=== PATIENT | male | born 1960 | race Caucasian/White ===

== ENCOUNTER 2017-04-03 07:10 | Inpatient (IN) | payer MEDICAID ==
[2017-04-03] MEDS ORDERED: Sodium Chloride 0.9% 1,000 ML IV SCH (07:30)
[2017-04-03] MEDS ORDERED: Propofol 200 MG/20 ML SDV ONE ×2 (07:57→08:39)
[2017-04-03] MEDS ORDERED: fentaNYL 100 MCG/2 ML SDV ONE (07:58)
[2017-04-03] MEDS ORDERED: Midazolam 1 MG/ML 2 ML SDV ONE (07:58)
[2017-04-03] MEDS: Dextrose 5%-Lactated Ringers 1,000 ML IV SCH ×2 (10:59→21:04)
--- NOTE | 2017-04-03 13:29 | PROC ---
DATE OF PROCEDURE: 04/03/2017 INDICATION: Rakesh is a 56-year-old male who comes in for a screening colonoscopy. He has had bleeding from the rectum recently and is concerned. The risks and benefits were explained for a colonoscopy. DESCRIPTION OF PROCEDURE: The Olympus 180 AL scope was used. With a gloved finger, the rectum was examined, and the prostate was unremarkable. The tube was placed into the rectum and immediately noted significant mucosal erythema, but no polyps were identified. We then advanced the scope and did get finally to the cecum. At the cecum, noted 2 small polyps. These were biopsied. Upon retraction of the tube, noted a developing napkin-ring lesion. Pictures were taken of this area. We then put in the biopsy wire and lost the area that we were looking for. We went back and forth at least a dozen times. Unable to locate the napkin-like lesion again. Finally, the search was terminated, and retracted the tube slowly. There were no other lesions or ulceration noted throughout the entire colon. We came back into the rectum area, noted significant erythema once more with mucosal redness. Pictures were taken of this. No polyps were noted in the rectum. The tube was removed. The patient tolerated the procedure well. PREOPERATIVE DIAGNOSIS: Gastrointestinal blood loss. POSTOPERATIVE DIAGNOSIS: Two small polyps at the cecum; one developing napkin- like lesion noted. Unable to locate the lesion again for biopsy, but pictures were taken. Rectal mucosal erythema I feel that I a colon resection is going to be needed. The patient tolerated the procedure well. I spoke with Dr. Gilmar Johnson who will speak to Rakesh for possible surgical resection of the colon. Mao Melendez MD /[id number]
[2017-04-04] MEDS: Dextrose 5%-Lactated Ringers 1,000 ML IV SCH ×2 (05:45→15:44)
--- NOTE | 2017-04-04 09:11 | PCM.HP ---
H&P History of Present Illness - General Date of Service: 04/04/17 Source of Information: Patient History Limitations: Reports: No Limitations - History of Present Illness Initial Comments - Free Text/Narative: Rakesh states he had a one month history of bright red rectal bleeding. He had no other symptoms. Lower Back Pain Score (Numeric/FACES): 1 - Related Data Allergies/Adverse Reactions: Allergies Allergy/AdvReac Type Severity Reaction Status Date / Time codeine Allergy Itching Verified 04/03/17 07:23 Home Medications: Home Meds Albuterol [Ventolin HFA] 2 puff PO Q4H PRN 04/03/17 [History] Past Medical History HEENT History: Reports: Allergic Rhinitis, Impaired Vision Cardiovascular History: Reports: None Respiratory History: Reports: Bronchitis, Recurrent, COPD Gastrointestinal History: Reports: Colon Polyp, Gastritis, GERD Genitourinary History: Reports: None Musculoskeletal History: Reports: Back Pain, Chronic, Fracture, Neck Pain, Chronic Neurological History: Reports: Concussion, Migraines Psychiatric History: Reports: None Endocrine/Metabolic History: Reports: None Hematologic History: Reports: None Immunologic History: Reports: None Oncologic (Cancer) History: Reports: None Dermatologic History: Reports: None - Infectious Disease History Infectious Disease History: Reports: Chicken Pox - Past Surgical History Head Surgeries/Procedures: Reports: None HEENT Surgical History: Reports: None Cardiovascular Surgical History: Reports: None Respiratory Surgical History: Reports: None GI Surgical History: Reports: Colonoscopy, EGD, Hernia, Inguinal Male Surgical History: Reports: None Endocrine Surgical History: Reports: None Neurological Surgical History: Reports: None Musculoskeletal Surgical History: Reports: Ganglion Cyst Oncologic Surgical History: Reports: None Dermatological Surgical History: Reports: None Social & Family History - Family History Family Medical History: Noncontributory - Tobacco Use Smoking Status *Q: Former Smoker Years of Tobacco use: 20 Packs/Tins Daily: 1 Used Tobacco, but Quit: Yes Month Tobacco Last Used: 05/2016 Second Hand Smoke Exposure: Yes - Caffeine Use Caffeine Use: Reports: Coffee, Soda - Alcohol Use Days Per Week of Alcohol Use: 3 Number of Drinks Per Day: 5 Total Drinks Per Week: 15 Date of Last Drink: 03/31/17 - Recreational Drug Use Recreational Drug Use: Yes Drug Use in Last 12 Months: Yes Recreational Drug Type: Reports: Marijuana/Hashish Recreational Drug Use Frequency: Daily - Living Situation & Occupation Living situation: Reports: 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[place]) H&P Review of Systems - Review of Systems: Review Of Systems: See Below General: Reports: No Symptoms HEENT: Reports: No Symptoms Pulmonary: Reports: No Symptoms Cardiovascular: Reports: No Symptoms Gastrointestinal: Reports: No Symptoms Genitourinary: Reports: No Symptoms Musculoskeletal: Reports: No Symptoms Skin: Reports: No Symptoms Psychiatric: Reports: No Symptoms Neurological: Reports: No Symptoms Hematologic/Lymphatic: Reports: No Symptoms Immunologic: Reports: No Symptoms Exam - Exam Exam: See Below - Vital Signs Vital Signs: Last Vital Signs Temp 98.7 F 04/04/17 07:15 Pulse 68 04/04/17 07:15 Resp 16 04/04/17 07:15 BP 136/99 H 04/04/17 07:15 Pulse Ox 100 04/04/17 07:15 Weight: 182 lb 15.986 oz - Exam Quality Assessment: DVT Prophylaxis General: Alert, Oriented, Cooperative HEENT: PERRLA Neck: Supple, Trachea Midline Lungs: Clear to Auscultation, Normal Respiratory Effort Cardiovascular: Regular Rate, Regular Rhythm GI/Abdominal Exam: Soft, Non-Tender (Male) Exam: Deferred Rectal (Males) Exam: Deferred Back Exam: Normal Inspection, Full Range of Motion Extremities: Normal Inspection, Normal Range of Motion Skin: Warm, Dry, Intact Neurological: Cranial Nerves Intact, Reflexes Equal Bilateral Neuro Extensive - Mental Status: Alert, Oriented x3, Normal Mood/Affect Neuro Extensive - Motor, Sensory, Reflexes: CN II-XII Intact, Normal Reflexes Psychiatric: Alert, Normal Affect, Normal Mood - Patient Data Lab Results Last 24 hrs: Laboratory Results - last 24 hr 04/03/17 04/03/17 04/03/17 Range/Units 10:59 10:59 10:59 WBC 5.2 (4.5-11.0) K/uL RBC 4.80 (4.30-5.90) M/uL Hgb 15.1 H (12.0-15.0) g/dL Hct 44.1 (40.0-54.0) % MCV 92 (80-98) fL MCH 32 H (27-31) pg MCHC 34 (32-36) % Plt Count 271 (150-400) K/uL Sodium 140 (140-148) mmol/L Potassium 3.6 (3.6-5.2) mmol/L Chloride 107 (100-108) mmol/L Carbon Dioxide 23 (21-32) mmol/L Anion Gap 10.0 (5.0-14.0) mmol/L BUN 6 L (7-18) mg/dL Creatinine 1.0 (0.8-1.3) mg/dL Est Cr Clr Drug Dosing 87.19 mL/min Estimated GFR (MDRD) > 60 (>60) Glucose 141 H (74-106) mg/dL Calcium 8.3 L (8.5-10.1) mg/dL Total Bilirubin 1.0 (0.2-1.0) mg/dL AST 21 (15-37) U/L ALT 26 (12-78) U/L Alkaline Phosphatase 86 (46-116) U/L Total Protein 7.0 (6.4-8.2) g/dL Albumin 3.4 (3.4-5.0) g/dL Globulin 3.6 H (2.3-3.5) g/dL Albumin/Globulin Ratio 0.9 L (1.2-2.2) Blood Type O NEGATIVE Gel Antibody Screen Negative Crossmatch See Detail Result Diagrams: 04/03/17 10:59 04/03/17 10:59 *Q Meaningful Use (ADM) - VTE *Q VTE Criteria *Q: - Stroke *Q Stroke Criteria *Q: - AMI *Q AMI Criteria *Q: Problem List Initiated/Reviewed/Updated: Yes Orders Last 24hrs: Active Orders 24 hr Category Date Time Status Communication Order [RC] ASDIRECTED Care 04/03/17 10:43 Active Intake and Output [RC] ASDIRECTED Care 04/03/17 10:41 Active Up ad Marina [RC] ASDIRECTED Care 04/03/17 10:38 Active Verify Patient Consent Obtain [RC] ASDIRECTED Care 04/04/17 11:30 Active Vital Signs [RC] Q4H Care 04/03/17 10:38 Active Clear Liquid Diet [DIET] Diet 04/03/17 Lunch Active NPO After Midnight [Nothing per Oral After Midnight Diet 04/04/17 Dinner Active Diet] [DIET] CEA [REF] Stat Lab 04/03/17 10:59 Received PATIENT RETYPE [BBK] Stat Lab 04/03/17 10:59 Results RED BLOOD CELLS LP [BBK] Stat Lab 04/03/17 10:59 Results TYPE AND SCREEN [BBK] Stat Lab 04/03/17 10:59 Results Acetaminophen [Tylenol Extra Strength] Med 04/04/17 10:30 Once 1,000 mg PO ONETIME ONE Albuterol/Ipratropium [DuoNeb 3.0-0.5 MG/3 ML] Med 04/04/17 12:30 Once 3 ml INH ONCALL ONE Alvimopan [Entereg] Med 04/04/17 10:30 Once 12 mg PO ONETIME ONE Celecoxib [CeleBREX] Med 04/04/17 10:30 Once 200 mg PO ONETIME ONE Dextrose 5%-Lactated Ringers 1,000 ml Med 04/03/17 11:00 Active IV ASDIRECTED cefOXitin [Mefoxin] 2 gm Med 04/04/17 12:30 Active Sodium Chloride 0.9% [Normal Saline] 50 ml IV ONCALL SCD [Sequential Compression Device] [OM.PC] Routine Oth 04/03/17 16:10 Ordered Medication Orders Acetaminophen (Tylenol Extra Strength) 1,000 mg PO ONETIME ONE Stop: 04/04/17 10:31 Albuterol/Ipratropium (Duoneb 3.0-0.5 Mg/3 Ml) 3 ml INH ONCALL ONE Stop: 04/04/17 12:31 Alvimopan (Entereg) 12 mg PO ONETIME ONE Stop: 04/04/17 10:31 Celecoxib (Celebrex) 200 mg PO ONETIME ONE Stop: 04/04/17 10:31 Dextrose/Lactated Ringer's (Dextrose 5%-Lactated Ringers) 1,000 mls @ 100 mls/ hr IV ASDIRECTED DALE Last Admin: 04/04/17 05:45 Dose: 100 mls/hr Infusion: 04/04/17 05:45 Dose: 100 mls/hr Admin: 04/03/17 21:04 Dose: 100 mls/hr Infusion: 04/03/17 20:59 Dose: 100 mls/hr Admin: 04/03/17 10:59 Dose: 100 mls/hr Cefoxitin Sodium 2 gm/ Sodium (Chloride) 50 mls @ 100 mls/hr IV ONCALL ONE Stop: 04/04/17 12:59 Assessment/Plan Comment:: Rectal Bleeding SP Colonoscopy which reveals 2 polyps Family history: colon cancer - Mother at 65 yo Plan: Scheduled for Right Colectomy today case to follow See copy of orders in EMR Remain NPO Josephine Turk
[2017-04-04] MEDS ORDERED: Acetaminophen 500 MG Tab PO ONE (10:30)
[2017-04-04] MEDS ORDERED: Celecoxib 200 MG Cap PO ONE (10:30)
[2017-04-04] MEDS ORDERED: Succinylcholine 200 MG/10 ML MDV ONE (11:28)
[2017-04-04] MEDS ORDERED: Dexamethasone 4 MG/ML SDV ONE (11:28)
[2017-04-04] MEDS ORDERED: Propofol 200 MG/20 ML SDV ONE (11:28)
[2017-04-04] MEDS ORDERED: Ondansetron 4 MG/2 ML SDV ONE (11:28)
[2017-04-04] MEDS ORDERED: Neostigmine Methylsulfate 1 MG/ML 5 ML Syringe ONE (11:28)
[2017-04-04] MEDS ORDERED: Rocuronium 50 MG/5 ML Vial ONE (11:28)
[2017-04-04] MEDS ORDERED: Glycopyrrolate 0.2 MG/ML 5 ML MDV ONE (11:28)
[2017-04-04] MEDS ORDERED: Naloxone 0.4 MG/ML SDV ONE ×3 (11:39→15:47)
[2017-04-04] MEDS ORDERED: Naloxone 0.4 MG/ML SDV IVPUSH PRN (12:15)
[2017-04-04] MEDS ORDERED: Albuterol/Ipratropium 3.0-0.5 MG/3 ML Neb Soln INH ONE (12:30)
[2017-04-04] MEDS ORDERED: Ketorolac 60 MG/2 ML SDV ONE (12:51)
[2017-04-04] MEDS ORDERED: fentaNYL 100 MCG/2 ML SDV ONE ×2 (12:53→13:43)
[2017-04-04] MEDS ORDERED: Sodium Chloride 0.9% 20 ML ONE (13:02)
[2017-04-04] MEDS ORDERED: Bupivacaine 0.5% 30 ML SDV ONE (13:02)
[2017-04-04] MEDS ORDERED: Lactated Ringers 1,000 ML ONE (13:20)
[2017-04-04] MEDS ORDERED: Meropenem 500 MG SDV ONE (13:34)
[2017-04-04] MEDS: cefOXitin 2 GM in Sodium Chloride 0.9% 50 ML IV ONE ×2 (13:35→13:38)
[2017-04-04] MEDS ORDERED: Scopolamine 1.5 MG Transdermal Patch ONE (14:11)
[2017-04-04] MEDS ORDERED: Meperidine PF 100 MG/ML Syringe IM ONE (14:46)
[2017-04-04] MEDS ORDERED: hydrOXYzine HCl 100 MG/2 ML SDV IM ONE (14:47)
[2017-04-04] MEDS ORDERED: hydrOXYzine HCl 100 MG/2 ML SDV ONE (14:48)
[2017-04-04] MEDS ORDERED: Meperidine PF 100 MG/ML Syringe ONE (14:48)
[2017-04-04] MEDS: fentaNYL 2,500 MCG in Sodium Chloride 0.9% 200 ML EPIDUR SCH (15:43)
[2017-04-04] MEDS: Naloxone 0.4 MG/ML SDV IV PRN (15:55)
[2017-04-04] MEDS ORDERED: Naloxone 0.4 MG in Dextrose 5%-Lactated Ringers 1,000 ML IV SCH (16:00)
[2017-04-04] MEDS ORDERED: Meperidine PF 75 MG/ML Syringe IM PRN (16:07)
[2017-04-04] MEDS ORDERED: Albuterol/Ipratropium 3.0-0.5 MG/3 ML Neb Soln INH PRN (16:09)
[2017-04-04] MEDS ORDERED: Dextrose 5%-Lactated Ringers 1,000 ML IV SCH (16:15)
[2017-04-04] MEDS: cefOXitin 2 GM in Sodium Chloride 0.9% 50 ML IV SCH (17:56)
[2017-04-04] MEDS: Acetaminophen 1,000 MG in Premix Bag 1 BAG IV SCH (18:28)
[2017-04-04] MEDS: VERIFY SCOP PATCH TOP SCH (18:54)
[2017-04-04] MEDS: Naloxone 0.4 MG in Dextrose 5%-Lactated Ringers 1,000 ML IV SCH (21:39)
[2017-04-04] MEDS: Albuterol/Ipratropium 3.0-0.5 MG/3 ML Neb Soln INH SCH (21:39)
[2017-04-04] MEDS: Tamsulosin 0.4 MG Cap.ER PO SCH (21:44)
[2017-04-05] MEDS: Acetaminophen 1,000 MG in Premix Bag 1 BAG IV SCH ×3 (00:27→11:58)
[2017-04-05] MEDS: cefOXitin 2 GM in Sodium Chloride 0.9% 50 ML IV SCH ×4 (00:35→17:29)
[2017-04-05] MEDS: Naloxone 0.4 MG in Dextrose 5%-Lactated Ringers 1,000 ML IV SCH (04:28)
[2017-04-05] MEDS: diphenhydrAMINE 50 MG/ML SDV IVPUSH PRN ×2 (04:28→15:40)
[2017-04-05] MEDS: Naloxone 0.4 MG/ML SDV IV PRN (04:30)
[2017-04-05] MEDS: Albuterol/Ipratropium 3.0-0.5 MG/3 ML Neb Soln INH SCH ×4 (07:51→21:28)
[2017-04-05] MEDS: fentaNYL 2,500 MCG in Sodium Chloride 0.9% 200 ML EPIDUR SCH (08:34)
[2017-04-05] MEDS: VERIFY SCOP PATCH TOP SCH (08:35)
[2017-04-05] MEDS ORDERED: Naloxone 0.4 MG in Dextrose 5%-Lactated Ringers 1,000 ML IV SCH (10:30)
[2017-04-05] MEDS: Sennosides 8.6 MG Tab PO SCH (11:57)
[2017-04-05] MEDS: Ibuprofen 600 MG Tab PO SCH ×3 (11:58→21:29)
[2017-04-05] MEDS: Bisacodyl 5 MG Tab PO SCH ×2 (11:58→21:28)
[2017-04-05] MEDS: traMADol 50 MG Tab PO SCH ×3 (12:07→21:32)
[2017-04-05] MEDS: Acetaminophen 325 MG Tab PO SCH (17:29)
[2017-04-05] MEDS: Dextrose 5%-Lactated Ringers 1,000 ML IV SCH (17:41)
[2017-04-05] MEDS: Tamsulosin 0.4 MG Cap.ER PO SCH (21:29)
[2017-04-06] MEDS: Ondansetron 4 MG/2 ML SDV IV PRN (04:39)
[2017-04-06] MEDS: fentaNYL 2,500 MCG in Sodium Chloride 0.9% 200 ML EPIDUR SCH (04:57)
[2017-04-06] MEDS ORDERED: Lidocaine 1% with EPINEPHrine 1:100,000 50 ML MDV ONE (05:25)
[2017-04-06] MEDS ORDERED: Bupivacaine 0.5% 50 ML MDV ONE (05:25)
[2017-04-06] MEDS ORDERED: Meropenem 500 MG SDV ONE (05:25)
[2017-04-06] MEDS: Ibuprofen 600 MG Tab PO SCH ×4 (05:49→21:24)
[2017-04-06] MEDS: Acetaminophen 325 MG Tab PO SCH ×4 (05:53→19:20)
[2017-04-06] MEDS: traMADol 50 MG Tab PO SCH ×4 (05:53→21:24)
[2017-04-06] MEDS: cefOXitin 2 GM in Sodium Chloride 0.9% 50 ML IV SCH ×3 (06:00)
[2017-04-06] MEDS ORDERED: Propofol 200 MG/20 ML SDV ONE (06:06)
[2017-04-06] MEDS ORDERED: fentaNYL 100 MCG/2 ML SDV ONE (06:07)
[2017-04-06] MEDS ORDERED: Clindamycin Phosphate 900 MG in Sodium Chloride 0.9% 100 ML IV ONE (07:15)
[2017-04-06] MEDS: Albuterol/Ipratropium 3.0-0.5 MG/3 ML Neb Soln INH SCH ×4 (07:45→21:25)
[2017-04-06] MEDS ORDERED: Naloxone 0.4 MG/ML SDV IV PRN (07:48)
[2017-04-06] MEDS: HYDROmorphone/Normal Saline 15 MG/30 ML PCA IV PRN (08:00)
[2017-04-06] MEDS: Piperacillin/Tazobactam/Dext 3.375 GM in Premix Bag 1 BAG IV SCH ×3 (08:20→20:29)
[2017-04-06] MEDS: Metoclopramide 10 MG/2 ML SDV IVPUSH SCH ×3 (08:21→20:30)
[2017-04-06] MEDS: VERIFY SCOP PATCH TOP SCH (10:22)
[2017-04-06] MEDS: Sennosides 8.6 MG Tab PO SCH (10:23)
[2017-04-06] MEDS: Bisacodyl 5 MG Tab PO SCH ×2 (11:37→20:30)
[2017-04-06] MEDS ORDERED: Furosemide 20 MG/2 ML VIAL IVPUSH ONE (14:00)
[2017-04-06] MEDS: Clindamycin Phosphate 900 MG in Sodium Chloride 0.9% 100 ML IV SCH ×2 (14:47→21:25)
[2017-04-06] MEDS: Dextrose 5%-Lactated Ringers 1,000 ML IV SCH ×2 (16:25)
--- NOTE | 2017-04-06 17:03 | PN ---
DATE OF SERVICE: 04/05/2017 The patient has been clinically stable and afebrile with stable vital signs. Oral intake has been today. Otherwise, plan a delayed primary closure tomorrow morning. We will start the Senokot and Dulcolax regimen along with ibuprofen, tramadol, and Tylenol, and plan to proceed with a delayed primary closure of abdominal incision tomorrow. Gabriele Johnson MD /[id number]
--- NOTE | 2017-04-06 17:40 | OR ---
DATE OF PROCEDURE: 04/06/2017 PREOPERATIVE DIAGNOSIS: Open abdominal incision. POSTOPERATIVE DIAGNOSIS: Open abdominal incision. OPERATION PERFORMED: Delayed primary closure of open abdominal incision. ANESTHESIA: IV sedation. INDICATION FOR PROCEDURE: The patient is 48 hours status post right colectomy. At the time of the original procedure, he was thought to be high risk for wound infection if primary closure was undertaken. Given this, a delayed primary closure is planned for today. Potential risks including bleeding, infection, aspiration of gastric contents during the sedation were reviewed and the patient wishes to proceed. DETAILS OF PROCEDURE: The patient was taken to the operating room and placed in a sitting position with lateral position being adopted to minimize chance of aspiration of gastric contents. After IV sedation was administered, the wound was taken down and examined and found to be clean. The wound was then prepped and draped, anesthetized with 1% lidocaine mixed with Marcaine and irrigated with meropenem-containing saline solution. Through the lateral incision, a 10-Zambian round Deny-Fallon drain was placed and then the incision closed with some 3-0 and 4-0 Vicryl stitch deep and martinez for the skin and the drain was affixed with 3-0 Vicryl stitch and the patient was taken to the recovery room in satisfactory condition. The patient did have some emesis during the procedure and had some degree of aspiration due to coughing somewhat in the recovery room, but he was maintaining adequate O2 sats and otherwise looked comfortable. Gabriele Johnson MD /[id number]
[2017-04-06] MEDS: Tamsulosin 0.4 MG Cap.ER PO SCH (20:30)
[2017-04-07] MEDS: Acetaminophen 325 MG Tab PO SCH ×2 (01:09→05:32)
[2017-04-07] MEDS: Piperacillin/Tazobactam/Dext 3.375 GM in Premix Bag 1 BAG IV SCH ×4 (01:09→20:34)
[2017-04-07] MEDS: Metoclopramide 10 MG/2 ML SDV IVPUSH SCH ×4 (01:10→20:33)
[2017-04-07] MEDS: traMADol 50 MG Tab PO SCH (05:32)
[2017-04-07] MEDS: Clindamycin Phosphate 900 MG in Sodium Chloride 0.9% 100 ML IV SCH ×3 (05:33→21:17)
[2017-04-07] MEDS: Ibuprofen 600 MG Tab PO SCH (05:33)
[2017-04-07] MEDS: Dextrose 5%-Lactated Ringers 1,000 ML IV SCH ×2 (05:34→15:31)
[2017-04-07] MEDS: Ondansetron 4 MG/2 ML SDV IV PRN (06:49)
[2017-04-07] MEDS: Albuterol/Ipratropium 3.0-0.5 MG/3 ML Neb Soln INH SCH ×4 (07:27→20:34)
[2017-04-07] MEDS: VERIFY SCOP PATCH TOP SCH (09:02)
[2017-04-07] MEDS: Scopolamine 1.5 MG Transdermal Patch TOP SCH (09:03)
[2017-04-07] MEDS: Sennosides 8.6 MG Tab PO SCH (09:07)
--- NOTE | 2017-04-07 09:25 | CR ---
Post surgical changes with drains. Drain right lower quadrant. Dilated small bowel loops and gaseous distention of the large bowel. Findings may indicate ileus.
--- NOTE | 2017-04-07 09:29 | CR ---
Heart size within normal limits. Free air under the right hemidiaphragm. Correlate with postsurgical change. Pulmonary vasculature within normal limits. Streaky density right lung base may indicate atel ectasis.
--- NOTE | 2017-04-07 11:22 | PN ---
DATE OF SERVICE: 04/06/2017 The patient has been afebrile with stable vital signs. He did vomit this morning and also had vomited some during the delayed primary closure. Clinically, he appears to be stable. He is coughing somewhat, but has adequate O2 sats. We will check a chest x-ray tomorrow and then empirically get him on Zosyn and clindamycin at this point. Otherwise because of the emesis, I suspect we are not going to get much oral absorption, and if he does vomit again, we will place an NG tube and hold the oral meds altogether. With the epidural catheter coming out today, we will start a [employer] and make him n.p.o., except ice chips and sips of water. Gabriele Johnson MD /[id number]
[2017-04-07] MEDS: HYDROmorphone/Normal Saline 15 MG/30 ML PCA IV PRN (11:30)
--- NOTE | 2017-04-07 13:29 | OR ---
DATE OF PROCEDURE: 04/04/2017 PREOPERATIVE DIAGNOSIS: Sessile polyp involving ascending colon. POSTOPERATIVE DIAGNOSES: 1. Sessile polyp involving ascending colon. 2. 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 OPERATIVE PROCEDURES: Exploratory laparotomy with: 1. Right colectomy (32426). 2. Mobilization of omentum into pelvis to limit recurrent adhesion formation (16712). ANESTHESIA: General. FILM PROCESSING SUPERVISOR: Josephine Horta PA-C. INDICATIONS FOR PROCEDURE: A 56-year-old male presenting for a screening colonoscopy yesterday. He was noted to have a sessile polyp in the cecum or ascending colon, which was felt not amenable to endoscopic removal. Given this, he is admitted for planned right colectomy at this time. Potential risks of procedure including bleeding, infection, leaks from various GI tract closures, problems with bowel obstruction over time, as well as possibility of cardiopulmonary, septic, or hemorrhagic complications leading to were discussed, and the patient wishes to proceed. DETAILS OF PROCEDURE: The patient was taken to the operating room and placed in a supine position after general endotracheal anesthesia was induced. A Banerjee catheter was then inserted. The patient also had epidural catheter placed prior to induction to initiate the fast track anesthetic protocol. After the abdomen was prepped and draped, a right subcostal- type incision was made roughly a handsbreadth below the costal margin. It was carried down through the skin and subcutaneous tissue and full thickness of the abdominal wall. Upon entering peritoneal cavity, general exploration was undertaken. No specific abnormalities were noted. Polyp seen on the endoscopy was clearly too small to be palpable. Examination showed there to be quite a bit in the way of congenital adhesions between the distal small bowel and the pelvic inlet area. These were dissected free to allow subsequent mobilization of the small bowel for the colectomy. At that point, the peritoneal reflection of the distal small bowel, cecum, and ascending colon were divided. Those structures were mobilized medially with care taken to avoid injury to the underlying right ureter and duodenum. The attachments to the area of the hepatic flexure of colon were sequentially divided with a combination of electrocautery and blunt dissection. Some of the omentum was then divided away from the hepatic flexure of the colon along to the more or less midportion of the transverse colon. The latter was then divided at a point just to the right of the middle colic vessels, and the distal small bowel was then divided a few centimeters proximal to the ileocecal valve at a point where nice mobility of the small bowel to the divided transverse colon was evident. The small bowel was divided with the TRACY stapler. The underlying mesentery was then divided with a combination of vascular and mesenteric loads and the specimen delivered from the field. Off the field, the specimen was opened, and with the endoscopic picture in view, the polyp identified on yesterday's colonoscopy was confirmed to be present, and this was marked with a suture to highlight it for the pathologic exam. At this point, the ileocolic anastomosis was accomplished with 2 internal firings of the TRACY luna loads, followed by a transverse closure of the common opening with 2 firings of the purple load. The angles were anastomosed, and the mesenteric defect was approximated with some 3-0 Vicryl stitch and reinforced with some fibrin sealant. The abdomen was then irrigated with a meropenem-containing saline solution. One Deny-Fallon drain was then placed through a stab wound in the right lateral abdomen and taken across the area of the anastomosis and from there into the pelvis. To limit recurrent adhesion formation in the area where the small bowel adhesions had been taken down, the omentum was mobilized down into that area, as well as underneath the incision, and at that point, the posterior peritoneum and musculature were approximated with a #2 Vicryl stitch, as was the anterior rectus sheath and musculature. The skin and subcutaneous tissues were felt to be high risk for a wound infection, if primary closure was undertaken. Given this, the wound was packed open for a planned delayed primary closure in 48 hours. There were no other complications. The patient was taken to the recovery room in satisfactory condition. Physician medical assistant instructor, Josephine Horta, played an essential role in assisting in this case, helping to position the patient, retracting structures as needed, as well as suturing and cutting sutures when indicated. Her presence improved patient safety and decreased operative time. Gabriele Johnson MD /[id number]
[2017-04-07] MEDS ORDERED: Bisacodyl 10 MG Supp RECTAL ONE (18:00)
[2017-04-08] MEDS: Ondansetron 4 MG/2 ML SDV IV PRN ×2 (00:33→05:06)
[2017-04-08] MEDS ORDERED: Phenol/Sodium Phenolate Mouthwash 180 ML Bottle MUCMEM PRN (00:42)
[2017-04-08] MEDS: Dextrose 5%-Lactated Ringers 1,000 ML IV SCH ×3 (01:12→23:10)
[2017-04-08] MEDS: Piperacillin/Tazobactam/Dext 3.375 GM in Premix Bag 1 BAG IV SCH ×4 (01:12→19:09)
[2017-04-08] MEDS: Metoclopramide 10 MG/2 ML SDV IVPUSH SCH ×4 (01:17→19:09)
[2017-04-08] MEDS: Clindamycin Phosphate 900 MG in Sodium Chloride 0.9% 100 ML IV SCH ×3 (05:01→21:27)
[2017-04-08] MEDS: Albuterol/Ipratropium 3.0-0.5 MG/3 ML Neb Soln INH SCH ×4 (07:04→21:27)
[2017-04-08] MEDS: VERIFY SCOP PATCH TOP SCH (08:30)
--- NOTE | 2017-04-08 10:32 | CR ---
NG tube with distal tip in the stomach. There remains numerous dilated loops of small bowel which can indicate an ileus or obstruction. Free air below the right hemidiaphragm.
[2017-04-08] MEDS: Sennosides 8.6 MG Tab PO SCH (10:44)
[2017-04-08] MEDS: HYDROmorphone/Normal Saline 15 MG/30 ML PCA IV PRN (14:21)
[2017-04-08] MEDS ORDERED: Furosemide 20 MG/2 ML VIAL IVPUSH ONE (21:04)
[2017-04-09] MEDS: Piperacillin/Tazobactam/Dext 3.375 GM in Premix Bag 1 BAG IV SCH ×4 (02:23→21:03)
[2017-04-09] MEDS: Metoclopramide 10 MG/2 ML SDV IVPUSH SCH ×4 (02:23→19:28)
[2017-04-09] MEDS: Clindamycin Phosphate 900 MG in Sodium Chloride 0.9% 100 ML IV SCH ×3 (05:16→21:48)
[2017-04-09] MEDS: Albuterol/Ipratropium 3.0-0.5 MG/3 ML Neb Soln INH SCH ×4 (07:09→20:57)
--- NOTE | 2017-04-09 08:33 | CR ---
NG tube with distal tip in the stomach. Surgical staple line. Free air under right hemidiaphragm. The re remains numerous loops of dilated small bowel indicating ileus or obstruction
[2017-04-09] MEDS: VERIFY SCOP PATCH TOP SCH (08:46)
[2017-04-09] MEDS: Sennosides 8.6 MG Tab PO SCH (08:47)
[2017-04-09] MEDS ORDERED: Furosemide 20 MG/2 ML VIAL IVPUSH ONE (09:00)
[2017-04-09] MEDS ORDERED: Magnesium Sulfate/Water 2 GM in Premix Bag 1 BAG IV SCH (10:00)
--- NOTE | 2017-04-09 10:21 | PN ---
DATE OF SERVICE: 04/09/2017 SUBJECTIVE: Rakesh did have a large bowel movement. Blood pressure has been slightly elevated at 151/97. He did have some Lasix, and his blood pressure did decrease. NG remains in, and he has had, over the past 24 hours, a total of 460 out. GEOVANNY drains have put out 43 mL, is what is recorded. Labs this morning, potassium 3.3 and magnesium was 1.9. He reports his pain is controlled if he remembers to push the button. He has been up ambulating. He states he is feeling better today. OBJECTIVE: GENERAL: Rakesh Portillo is a 56-year-old male. He looks like he is feeling a little bit better today. VITAL SIGNS: TPR is 98.9, 91, 16, and blood pressure is 164/107. HEENT: Negative. NECK: Supple. HEART: Regular rate and rhythm. LUNGS: Clear. ABDOMEN: Dressings dry and intact. Abdominal binder is on. EXTREMITIES: Without peripheral edema. ASSESSMENT: 1. Delayed primary closure of open abdominal incision on 04/06/2017. 2. Exploratory laparotomy with right colectomy and mobilization of omentum into pelvis to limit recurrent adhesive formation for sessile polyp involving ascending colon, extensive congenital adhesions between small bowel and lower abdomen and pelvis inlet. PLAN: 1. Magnesium 2 grams IV q.6 hours x72 hours. 2. KCl 60 mEq IV today. 3. Decrease IV to 80 mL/hour. 4. Check CBC, CMP, and phos in a.m. 5. Continue abdominal flat and upright films in a.m. 6. Dressing off, may shower. 7. Lasix 20 mg IV 1 time. 8. Good pulmonary toilet encouraged. 9. We will evaluate p.r.n. or in a.m. Josephine Horta PA-C /[id number]
[2017-04-09] MEDS: HYDROmorphone/Normal Saline 15 MG/30 ML PCA IV PRN (10:26)
[2017-04-09] MEDS: Potassium Chloride 20 MEQ, Lidocaine 1% 2 ML in Sodium Chloride 0.9% 100 ML IV SCH ×3 (10:59→15:13)
--- NOTE | 2017-04-09 11:36 | PN ---
DATE OF SERVICE: 04/08/2017 SUBJECTIVE: The NG was advanced and he had 600 out. He states he is feeling better now. His Banerjee catheter was removed, and he has not voided at the time of rounds. He states his pain is controlled. He states he is just not feeling well. REVIEW OF SYSTEMS: Remainder of review of systems negative for any pertinent positives and negatives. OBJECTIVE: GENERAL: Rakesh Portillo is a 56-year-old male. VITAL SIGNS: TPR is 100.1, 105, 18. Blood pressure 148/107, prior to that it was 152/96 and 143/101. HEENT: Negative. NECK: Supple. HEART: Regular rate and rhythm. LUNGS: Clear. ABDOMEN: Dressings dry and intact. Abdominal binder is on. EXTREMITIES: Without peripheral edema. ASSESSMENT: 1. Exploratory laparotomy with right colectomy and mobilization of the omentum into pelvis to limit recurrent adhesive formation for sessile polyp involving the ascending colon and extensive congenital adhesions between the small bowel and lower abdomen and pelvic inlet. Date of surgery 04/04/2017; surgeon, Gabriele Johnson MD. 2. Delayed primary closure for open incision on 04/06/2017, Gabriele Johnson MD, IV sedation. PLAN: 1. Abdominal flat and upright film in a.m. at 0400. 2. Decrease IV to 125 mL/hour. 3. Check CBC, CMP, and magnesium phosphate in a.m. 4. Good pulmonary toilet. 5. We will evaluate p.r.n. or in a.m. Josephine Horta PA-C /[id number]
[2017-04-09] MEDS: Dextrose 5%-Lactated Ringers 1,000 ML IV SCH (12:34)
[2017-04-09] MEDS ORDERED: Labetalol 20 MG/4 ML Syringe IVPUSH PRN (20:14)
[2017-04-09] MEDS: amLODIPine 5 MG Tab PO SCH (21:47)
[2017-04-10] MEDS: Piperacillin/Tazobactam/Dext 3.375 GM in Premix Bag 1 BAG IV SCH (01:55)
[2017-04-10] MEDS: Metoclopramide 10 MG/2 ML SDV IVPUSH SCH ×4 (01:55→19:07)
[2017-04-10] MEDS: HYDROmorphone/Normal Saline 15 MG/30 ML PCA IV PRN (03:26)
[2017-04-10] MEDS: Clindamycin Phosphate 900 MG in Sodium Chloride 0.9% 100 ML IV SCH (06:51)
[2017-04-10] MEDS: Albuterol/Ipratropium 3.0-0.5 MG/3 ML Neb Soln INH SCH ×4 (07:17→20:57)
[2017-04-10] MEDS: Sennosides 8.6 MG Tab PO SCH (08:03)
[2017-04-10] MEDS: Acetaminophen/HYDROcodone 325-5 MG Tab PO PRN ×4 (08:03→22:55)
[2017-04-10] MEDS: LORazepam 0.5 MG Tab PO PRN ×2 (08:04→20:56)
[2017-04-10] MEDS: Scopolamine 1.5 MG Transdermal Patch TOP SCH (08:05)
--- NOTE | 2017-04-10 09:57 | PN ---
DATE OF SERVICE: 04/10/2017 SUBJECTIVE: Rakesh has been afebrile. Temp max of 99.9. He has been up walking. He has been drinking some soda which he has tolerated it well. He reports he is quite anxious. Blood pressure has been elevated. He was given labetalol last night, started on Norvasc, amlodipine 5 mg. His NG was clamped. It was given at bedtime last night, so we will check his blood pressure today, get his anxiety under control and see how he is feeling. Pain is controlled he states as long as he pushes his button. He reports wanting that NG out which will be ordered to come out today. REVIEW OF SYSTEMS: Remainder of review of systems negative for any pertinent positives and negatives. OBJECTIVE: GENERAL: Rakesh Portillo is a 56-year-old male. He is alert and orientated, pleasant. VITAL SIGNS: TPR 98.7, 83, 16, blood pressure 153/99. HEENT: Negative. NECK: Supple. HEART: Regular rate and rhythm. LUNGS: Clear. ABDOMEN: Incisions look good. Abdominal binder is on. EXTREMITIES: Without peripheral edema. His GEOVANNY drains have put out 5. SKIN: Without rash. ASSESSMENT: 1. Delayed primary closure of open abdominal incision on 04/06/2017. Exploratory laparotomy with right colectomy and mobilization of omentum into pelvis to limit recurrent adhesive formation to sessile polyp involving ascending colon, extensive congenital adhesions between the small bowel and lower abdomen and pelvis inlet. Date of surgery was 04/04/2017. Pathology report, right colon resection, tubular adenoma, polyp size 1.2 cm, lacking high- grade dysplasia margins negative 1. Benign appendix. 2. 13 benign lymph nodes. PLAN: KCl 60 mEq IV in [address] Mao Melendez for consult regarding hypertension. Discontinue NG. Full-liquid diet. Discontinue STRATEGY INTERN, continuous pulse ox. [place] 5/325 mg 1 to 2 every 4 hours p.r.n. pain, Ativan 0.5 mg take 1 to 2 q.4 hours p.r.n. anxiety. We will evaluate p.r.n. or in a.m. Josephine Horta PA-C /[id number]
[2017-04-10] MEDS: VERIFY SCOP PATCH TOP SCH (11:34)
[2017-04-10] MEDS: Doxazosin 4 MG Tab PO SCH (11:34)
[2017-04-10] MEDS: Dextrose 5%-Lactated Ringers 1,000 ML IV SCH (11:40)
--- NOTE | 2017-04-10 11:44 | CR ---
NG tube with distal tip in the stomach. There remains dilated small bowel loops unchanged. Ileus vers us small bowel obstruction. Free air under the right hemidiaphragm.
[2017-04-10] MEDS ORDERED: Potassium Chloride 20 MEQ Tab.ER PO ONE (12:30)
--- NOTE | 2017-04-10 19:00 | PCM.PN ---
- General Info Date of Service: 04/10/17 Functional Status: Reports: Pain Controlled - Review of Systems General: Reports: Weakness HEENT: Reports: No Symptoms Pulmonary: Reports: No Symptoms Cardiovascular: Reports: No Symptoms Gastrointestinal: Reports: Nausea Genitourinary: Reports: No Symptoms Musculoskeletal: Reports: No Symptoms Neurological: Reports: No Symptoms Psychiatric: Reports: No Symptoms - Patient Data Vitals - Most Recent: Last Vital Signs Temp 98.4 F 04/10/17 15:41 Pulse 101 H 04/10/17 15:41 Resp 12 04/10/17 15:41 BP 142/97 H 04/10/17 15:41 Pulse Ox 91 L 04/10/17 15:41 Weight - Most Recent: 182 lb 15.986 oz I&O - Last 24 Hours: Intake & Output 04/10/17 04/10/17 04/10/17 06:59 14:59 22:59 Intake Total 9036 324 3961 Output Total 1005 250 500 Balance 275 904 0326 Lab Results Last 24 Hours: Laboratory Results - last 24 hr 04/10/17 04/10/17 Range/Units 04:39 04:39 WBC 8.1 (4.5-11.0) K/uL RBC 4.48 (4.30-5.90) M/uL Hgb 13.8 (12.0-15.0) g/dL Hct 41.4 (40.0-54.0) % MCV 92 (80-98) fL MCH 31 (27-31) pg MCHC 33 (32-36) % Plt Count 307 (150-400) K/uL Sodium 138 L (140-148) mmol/L Potassium 3.4 L (3.6-5.2) mmol/L Chloride 101 (100-108) mmol/L Carbon Dioxide 31 (21-32) mmol/L Anion Gap 9.4 (5.0-14.0) mmol/L BUN 5 L (7-18) mg/dL Creatinine 1.0 (0.8-1.3) mg/dL Est Cr Clr Drug Dosing 87.41 mL/min Estimated GFR (MDRD) > 60 (>60) Glucose 101 (74-106) mg/dL Calcium 8.3 L (8.5-10.1) mg/dL Phosphorus 3.2 (2.5-4.9) mg/dL Total Bilirubin 0.6 (0.2-1.0) mg/dL AST 33 (15-37) U/L ALT 34 (12-78) U/L Alkaline Phosphatase 74 (46-116) U/L Total Protein 6.9 (6.4-8.2) g/dL Albumin 2.8 L (3.4-5.0) g/dL Globulin 4.1 H (2.3-3.5) g/dL Albumin/Globulin Ratio 0.7 L (1.2-2.2) Med Orders - Current: Current Medications Hydrocodone Bitart/Acetaminophen ([place] 325-5 Mg) 1 - 2 tab PO Q4H PRN PRN Reason: Pain Last Admin: 04/10/17 14:01 Dose: 2 tab Albuterol/Ipratropium (Duoneb 3.0-0.5 Mg/3 Ml) 3 ml INH QIDRT [facility] Last Admin: 04/10/17 15:45 Dose: Not Given Albuterol/Ipratropium (Duoneb 3.0-0.5 Mg/3 Ml) 3 ml INH ASDIRECTED PRN PRN Reason: Shortness of Breath Amlodipine Besylate (Norvasc) 5 mg PO DAILY@2100 [facility] Last Admin: 04/09/17 21:47 Dose: 5 mg Doxazosin Mesylate (Cardura) 2 mg PO DAILY [facility] Last Admin: 04/10/17 11:34 Dose: 2 mg Erythromycin Lactobionate 125 (mg/ Sodium Chloride) 100 mls @ 100 mls/hr IV Q8H [facility] Stop: 04/11/17 12:00 Last Admin: 04/10/17 17:32 Dose: 100 mls/hr Dextrose/Lactated Ringer's (Dextrose 5%-Lactated Ringers) 1,000 mls @ 80 mls/ hr IV ASDIRECTED [facility] Last Admin: 04/10/17 11:40 Dose: 125 mls/hr Magnesium Sulfate 2 gm/ Sodium (Chloride) 54 mls @ 27 mls/hr IV Q6H [facility] Stop: 04/12/17 05:59 Last Admin: 04/10/17 16:00 Dose: 27 mls/hr Labetalol HCl (Normodyne) 0 mg IVPUSH Q1H PRN; Protocol PRN Reason: Hypertension Last Admin: 04/09/17 20:46 Dose: 5 mg Lorazepam (Ativan) 0.5 - 1 mg PO Q4H PRN PRN Reason: Anxiety Last Admin: 04/10/17 08:04 Dose: 1 mg Metoclopramide HCl (Reglan) 10 mg IVPUSH Q6H [facility] Last Admin: 04/10/17 13:56 Dose: 10 mg Verify Scop Patch 0 each TOP DAILY [facility] Last Admin: 04/10/17 11:34 Dose: Not Given Ondansetron HCl (Zofran) 4 mg IV Q4H PRN PRN Reason: N/V Last Admin: 04/08/17 05:06 Dose: 4 mg Phenol (Phenaseptic Liquid) 1 ml MUCMEM Q1H PRN PRN Reason: Sore Throat Last Admin: 04/08/17 01:08 Dose: 1 spray Scopolamine (Transderm-Scop) 1.5 mg TOP Q72H [facility] Last Admin: 04/10/17 08:05 Dose: 1.5 mg Senna (Senna) 17.2 mg PO DAILY [facility] Last Admin: 04/10/17 08:03 Dose: 17.2 mg Discontinued Medications Acetaminophen (Tylenol Extra Strength) 1,000 mg PO ONETIME ONE Stop: 04/04/17 10:31 Last Admin: 04/04/17 11:20 Dose: 1,000 mg Acetaminophen (Tylenol) 650 mg PO Q6H [facility] Last Admin: 04/07/17 05:32 Dose: 650 mg Albuterol/Ipratropium (Duoneb 3.0-0.5 Mg/3 Ml) 3 ml INH ONCALL ONE Stop: 04/04/17 12:31 Last Admin: 04/04/17 12:13 Dose: 3 ml Alvimopan (Entereg) 12 mg PO ONETIME ONE Stop: 04/04/17 10:31 Last Admin: 04/04/17 11:20 Dose: 12 mg Alvimopan (Entereg) 12 mg PO Q12H [facility] Stop: 04/11/17 10:01 Last Admin: 04/06/17 21:24 Dose: 12 mg Bisacodyl (Dulcolax) 10 mg PO BID [facility] Last Admin: 04/06/17 20:30 Dose: 10 mg Bisacodyl (Dulcolax) 10 mg RECTAL ONETIME ONE Stop: 04/07/17 18:01 Last Admin: 04/07/17 17:00 Dose: 10 mg Bupivacaine HCl (Marcaine 0.5%) Confirm Administered Dose 30 ml .ROUTE .STK-MED ONE Stop: 04/04/17 13:03 Bupivacaine HCl (Marcaine 0.5%) Confirm Administered Dose 50 ml .ROUTE .STK-MED ONE Stop: 04/06/17 05:26 Last Admin: 04/06/17 06:41 Dose: 10 ml Celecoxib (Celebrex) 200 mg PO ONETIME ONE Stop: 04/04/17 10:31 Last Admin: 04/04/17 11:19 Dose: 200 mg Dexamethasone (Dexamethasone) Confirm Administered Dose 4 mg .ROUTE .STK-MED ONE Stop: 04/04/17 11:29 Diphenhydramine HCl (Benadryl) 25 mg IVPUSH Q6H PRN PRN Reason: ITCHING Last Admin: 04/05/17 15:40 Dose: 25 mg Fentanyl (Sublimaze) Confirm Administered Dose 100 mcg .ROUTE .STK-MED ONE Stop: 04/03/17 07:59 Fentanyl (Sublimaze) Confirm Administered Dose 100 mcg .ROUTE .STK-MED ONE Stop: 04/04/17 12:54 Fentanyl (Sublimaze) Confirm Administered Dose 100 mcg .ROUTE .STK-MED ONE Stop: 04/04/17 13:44 Fentanyl (Sublimaze) Confirm Administered Dose 100 mcg .ROUTE .STK-MED ONE Stop: 04/06/17 06:08 Fentanyl Citrate (Fentanyl) Confirm Administered Dose 500 mcg .ROUTE .STK-MED ONE Stop: 04/04/17 11:29 Furosemide (Lasix) 20 mg IVPUSH ONETIME ONE Stop: 04/06/17 14:01 Last Admin: 04/06/17 13:52 Dose: 20 mg Furosemide (Lasix) 20 mg IVPUSH ONETIME ONE Stop: 04/08/17 21:05 Last Admin: 04/08/17 21:27 Dose: 20 mg Furosemide (Lasix) 20 mg IVPUSH ONETIME ONE Stop: 04/09/17 09:01 Last Admin: 04/09/17 09:42 Dose: 20 mg Glycopyrrolate (Robinul) Confirm Administered Dose 1 mg .ROUTE .STK-MED ONE Stop: 04/04/17 11:29 Hydromorphone HCl (Dilaudid Speech Coach 15 Mg In Ns 30 Ml) 0 mg IV ASDIRECTED PRN; Protocol 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 Last Admin: 04/10/17 03:26 Dose: 15 mg Hydroxyzine HCl (Vistaril) 50 mg IM ONETIME ONE Stop: 04/04/17 14:48 Last Admin: 04/04/17 14:55 Dose: 50 mg Hydroxyzine HCl (Vistaril) Confirm Administered Dose 100 mg .ROUTE .STK-MED ONE Stop: 04/04/17 14:49 Last Admin: 04/06/17 16:32 Dose: Not Given Sodium Chloride (Normal Saline) 1,000 mls @ 100 mls/hr IV ASDIRECTED [facility] Last Admin: 04/03/17 07:55 Dose: 100 mls/hr Dextrose/Lactated Ringer's (Dextrose 5%-Lactated Ringers) 1,000 mls @ 100 mls/ hr IV ASDIRECTED [facility] Last Infusion: 04/04/17 15:44 Dose: Infused Cefoxitin Sodium 2 gm/ Sodium (Chloride) 50 mls @ 100 mls/hr IV ONCALL ONE Stop: 04/04/17 12:59 Last Admin: 04/04/17 13:38 Dose: 100 mls/hr Fentanyl 2,500 mcg/ Sodium (Chloride) 250 mls @ 0 mls/hr EPIDUR TITRATE [facility]; Titrate PRN Reason: Protocol Last Admin: 04/06/17 04:57 Dose: 12 mls/hr, 12 mls/hr Sodium Chloride (Normal Saline) Confirm Administered Dose 20 mls @ as directed .ROUTE .STK-MED ONE Stop: 04/04/17 13:03 Acetaminophen (Ofirmev) Confirm Administered Dose 100 mls @ as directed IV .STK- MED ONE Stop: 04/04/17 13:10 Lactated Ringer's (Ringers, Lactated) Confirm Administered Dose 1,000 mls @ as directed .ROUTE .STK-MED ONE Stop: 04/04/17 13:21 Naloxone HCl 0.4 mg/ Dextrose/ (Lactated Ringer's) 1,001 mls @ 150 mls/hr IV ASDIRECTED [facility] Dextrose/Lactated Ringer's (Dextrose 5%-Lactated Ringers) 1,000 mls @ 175 mls/ hr IV ASDIRECTED [facility] Last Admin: 04/04/17 16:46 Dose: 175 mls/hr Cefoxitin Sodium 2 gm/ Sodium (Chloride) 50 mls @ 100 mls/hr IV Q6H [facility] Last Admin: 04/06/17 06:00 Dose: 100 mls/hr Acetaminophen 1,000 mg/ Premix 100 mls @ 400 mls/hr IV Q6H [facility] Stop: 04/05/17 12:44 Last Admin: 04/05/17 11:58 Dose: 400 mls/hr Naloxone HCl 0.4 mg/ Dextrose/ (Lactated Ringer's) 1,001 [facility]ls [facility] Admin: 04/05/17 04:28 Dose: 175 mls/hr Dextrose/Lactated Ringer's (Dextrose 5%-Lactated Ringers) 1,000 mls @ 100 [facility]ls[facility] Last Admin: 04/07/17 05:34 Dose: 100 mls/hr Naloxone HCl 0.4 mg/ Dextrose/ (Lactated Ringer's) 1,001 mls @ 100 [facility] Clindamycin Phosphate 900 mg/ (Sodium Chloride) 106 mls @ 200 mls/hr IV ONETIME ONE Stop: 04/06/17 07:46 Last Admin: 04/06/17 06:57 Dose: 200 mls/hr Piperacillin/Tazobactam/ (Dextrose 3.375 gm/ Premix) 50 mls @ 100 mls/hr IV Q6H [facility] Last Admin: 04/10/17 01:55 Dose: 100 mls/hr Clindamycin Phosphate 900 mg/ (Sodium Chloride) 106 mls @ 200 mls/hr IV Q8H [facility] Last Admin: 04/10/17 06:51 Dose: 200 mls/hr Dextrose/Lactated Ringer's (Dextrose 5%-Lactated Ringers) 1,000 mls @ 150 mls/ hr IV ASDIRECTED [facility] Last Admin: 04/08/17 01:12 Dose: 150 mls/hr Magnesium Sulfate 2 gm/ Premix 50 mls @ 25 mls/hr IV Q6H [facility] Stop: 04/12/17 05:59 Potassium Chloride 20 meq/Lidocaine HCl 2 ml/ Sodium Chloride 112 mls @ 56 mls/ hr IV Q2H [facility] Stop: 04/09/17 15:59 Last Admin: 04/09/17 15:13 Dose: 56 mls/hr Ibuprofen (Motrin) 600 mg PO QID [facility] Last Admin: 04/07/17 05:33 Dose: 600 mg Ketorolac Tromethamine (Toradol) Confirm Administered Dose 60 mg .ROUTE .STK- MED ONE Stop: 04/04/17 12:52 Lidocaine/Epinephrine (Xylocaine 1% With Epinephrine 1:100,000) Confirm Administered Dose 50 ml .ROUTE .STK-MED ONE Stop: 04/06/17 05:26 Last Admin: 04/06/17 06:41 Dose: 10 ml Meperidine HCl (Demerol) 100 mg IM ONETIME ONE Stop: 04/04/17 14:47 Last Admin: 04/04/17 14:56 Dose: 100 mg Meperidine HCl (Demerol) Confirm Administered Dose 100 mg .ROUTE .STK-MED ONE Stop: 04/04/17 14:49 Last Admin: 04/06/17 16:32 Dose: Not Given Meperidine HCl (Demerol) 75 mg IM ASDIRECTED PRN PRN Reason: PAIN Stop: 04/05/17 06:00 Meropenem (Merrem) Confirm Administered Dose 500 mg .ROUTE .STK-MED ONE Stop: 04/04/17 13:35 Last Admin: 04/04/17 14:06 Dose: 500 mg Meropenem (Merrem) Confirm Administered Dose 500 mg .ROUTE .STK-MED ONE Stop: 04/06/17 05:26 Last Admin: 04/06/17 06:45 Dose: 500 mg Midazolam HCl (Versed 1 Mg/Ml) Confirm Administered Dose 2 mg .ROUTE .STK-MED ONE Stop: 04/03/17 07:59 Naloxone HCl (Narcan) 0.1 mg IVPUSH Q5M PRN PRN Reason: RESP RATE LESS THAN 6/MINUTE Last Admin: 04/04/17 15:44 Dose: 0.2 mg Naloxone HCl (Narcan) Confirm Administered Dose 0.4 mg .ROUTE .STK-MED ONE Stop: 04/04/17 11:40 Naloxone HCl (Narcan) Confirm Administered Dose 0.4 mg .ROUTE .STK-MED ONE Stop: 04/04/17 14:41 Naloxone HCl (Narcan) 0.4 mg IV ASDIRECTED PRN PRN Reason: ITCHING Last Admin: 04/05/17 04:30 Dose: 0.4 mg Naloxone HCl (Narcan) 0.1 mg IV ASDIRECTED PRN PRN Reason: decreased respiratory rate Neostigmine Methylsulfate (Neostigmine) Confirm Administered Dose 5 mg .ROUTE .STK-MED ONE Stop: 04/04/17 11:29 Ondansetron HCl (Zofran) Confirm Administered Dose 4 mg .ROUTE .STK-MED ONE Stop: 04/04/17 11:29 Potassium Chloride (Klor-Con M20) 40 meq PO ONETIME ONE Stop: 04/10/17 12:31 Last Admin: 04/10/17 13:56 Dose: 40 meq Propofol (Diprivan 20 Ml) Confirm Administered Dose 200 mg .ROUTE .STK-MED ONE Stop: 04/03/17 07:58 Propofol (Diprivan 20 Ml) Confirm Administered Dose 200 mg .ROUTE .STK-MED ONE Stop: 04/03/17 08:40 Propofol (Diprivan 20 Ml) Confirm Administered Dose 200 mg .ROUTE .STK-MED ONE Stop: 04/04/17 11:29 Propofol (Diprivan 20 Ml) Confirm Administered Dose 200 mg .ROUTE .STK-MED ONE Stop: 04/06/17 06:07 Rocuronium [place] (Zemuron) Confirm Administered Dose 50 mg .ROUTE .STK-MED ONE Stop: 04/04/17 11:29 Scopolamine (Transderm-Scop) Confirm Administered Dose 1.5 mg .ROUTE .STK-MED ONE Stop: 04/04/17 14:12 Succinylcholine Chloride (Quelicin) Confirm Administered Dose 200 mg .ROUTE .STK -MED ONE Stop: 04/04/17 11:29 Tamsulosin HCl (Flomax) 0.4 mg PO BEDTIME [facility] Last Admin: 04/06/17 20:30 Dose: 0.4 mg Tramadol HCl (Ultram) 50 mg PO QID [facility] Last Admin: 04/07/17 05:32 Dose: 50 mg - Exam HEENT: Pupils Equal, Pupils Reactive, EOMI, Mucous Membr. Moist/Eclectic Lungs: Clear to Auscultation, Normal Respiratory Effort Cardiovascular: Regular Rate, Regular Rhythm GI/Abdominal Exam: Tender Extremities: Normal Inspection, Normal Range of Motion, Non-Tender, No Pedal Edema, Normal Capillary Refill Peripheral Pulses: 1+: Radial (L), Radial (R) Psy/Mental Status: Alert, Normal Mood - Problem List Review Problem List Initiated/Reviewed/Updated: Yes - My Orders Last 24 Hours: My Active Orders 04/10/17 09:00 Doxazosin [Cardura] 2 mg PO DAILY 04/11/17 09:00 Metoprolol Succinate [Toprol XL] 50 mg PO DAILY - Plan Plan:: Assessment?Plan: #1. Hypertension. Have added Metoprolol to control the BP and will follow.
[2017-04-10] MEDS: amLODIPine 5 MG Tab PO SCH (20:57)
[2017-04-11] MEDS: Metoclopramide 10 MG/2 ML SDV IVPUSH SCH ×4 (01:52→19:15)
[2017-04-11] MEDS: Dextrose 5%-Lactated Ringers 1,000 ML IV SCH ×2 (01:53→16:17)
[2017-04-11] MEDS ORDERED: Acetaminophen/Caffeine 500-65 MG Tab PO PRN (07:51)
[2017-04-11] MEDS: Acetaminophen/HYDROcodone 325-5 MG Tab PO PRN ×4 (07:54→20:53)
[2017-04-11] MEDS: Ondansetron 4 MG/2 ML SDV IV PRN ×2 (07:54→20:53)
[2017-04-11] MEDS: Albuterol/Ipratropium 3.0-0.5 MG/3 ML Neb Soln INH SCH ×4 (07:58→20:51)
[2017-04-11] MEDS ORDERED: Ketorolac 60 MG/2 ML SDV IM ONE (08:15)
[2017-04-11] MEDS: Doxazosin 4 MG Tab PO SCH (08:57)
[2017-04-11] MEDS: Sennosides 8.6 MG Tab PO SCH (08:58)
[2017-04-11] MEDS: Metoprolol Succinate 50 MG Tab.ER PO SCH (08:58)
--- NOTE | 2017-04-11 09:23 | PN ---
DATE OF SERVICE: 04/11/2017 SUBJECTIVE: Rakesh's health was good until mid afternoon. His abdomen became distended. He was unable to eat any supper. He did not sleep real well during the night, felt uncomfortable, temp max of 100. Reports this morning, severe headache, nausea, and abdominal distention. He is passing flatus and he has had 3 bowel movements. REVIEW OF SYSTEMS: Remainder of review of systems negative for any pertinent positives and negatives. OBJECTIVE: GENERAL: Rakesh Portillo is a 56-year-old male. He is quiet, looks like he is not feeling well at all today. VITAL SIGNS: TPR is 99.3, 83, 16, blood pressure 171/100. HEENT: Negative. NECK: Supple. HEART: Regular rate and rhythm. LUNGS: Clear. ABDOMEN: Slightly distended. Abdominal binder is on. On examination it is tender, but still soft. EXTREMITIES: Without peripheral edema. ASSESSMENT: 1. Postoperative ileus. 2. Hypertension. 3. Delayed primary closure of open abdominal incision on 04/06/2017. 4. 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 Date of surgery 04/04/2017. PLAN: 1. Clear liquid diet. 2. Discontinue full liquid diet. 3. Toradol 60 mg IM now. 4. If any emesis or increase in nausea, to call me, we will need to put in an NG. 5. Continue abdominal flat and upright x-rays. 6. Excedrin Free take 2 p.o. for q.6 hours p.r.n. headache. 7. We will check CBC, CMP, mag, and phos in a.m. 8. We will evaluate p.r.n. or in a.m. Josephine Horta PA-C /[id number]
--- NOTE | 2017-04-11 09:25 | CR ---
Free air under the right hemidiaphragm. There remains dilated small bowel loops and air-fluid levels throughout the abdomen. Less gaseous distention compared to prior.
--- NOTE | 2017-04-11 09:29 | PCM.PN ---
- General Info Date of Service: 04/11/17 - Review of Systems General: Reports: Weakness HEENT: Reports: No Symptoms Pulmonary: Reports: No Symptoms Cardiovascular: Reports: No Symptoms Gastrointestinal: Reports: Abdominal Pain Genitourinary: Reports: No Symptoms Musculoskeletal: Reports: No Symptoms Skin: Reports: No Symptoms Neurological: Reports: No Symptoms - Patient Data Vitals - Most Recent: Last Vital Signs Temp 99.3 F 04/11/17 07:30 Pulse 82 04/11/17 08:58 Resp 16 04/11/17 07:30 BP 173/105 H 04/11/17 08:58 Pulse Ox 95 04/11/17 07:30 Weight - Most Recent: 182 lb 15.986 oz I&O - Last 24 Hours: Intake & Output 04/10/17 04/11/17 04/11/17 22:59 06:59 14:59 Intake Total 1797 1660 Output Total 500 0 Balance 1297 1660 0 Med Orders - Current: Current Medications Acetaminophen/Caffeine (Excedrin Tension Headache) 2 tab PO Q6H PRN PRN Reason: Headache Hydrocodone Bitart/Acetaminophen ([place] 325-5 Mg) 1 - 2 tab PO Q4H PRN PRN Reason: Pain Last Admin: 04/11/17 07:54 Dose: 2 tab Albuterol/Ipratropium (Duoneb 3.0-0.5 Mg/3 Ml) 3 ml INH QIDRT ON LICENSE OF [facility] Last Admin: 04/11/17 07:58 Dose: Not Given Albuterol/Ipratropium (Duoneb 3.0-0.5 Mg/3 Ml) 3 ml INH ASDIRECTED PRN PRN Reason: Shortness of Breath Amlodipine Besylate (Norvasc) 5 mg PO DAILY@2100 ON LICENSE OF [facility] Last Admin: 04/10/17 20:57 Dose: 5 mg Doxazosin Mesylate (Cardura) 4 mg PO DAILY ON LICENSE OF [facility] Erythromycin Lactobionate 125 (mg/ Sodium Chloride) 100 mls @ 100 mls/hr IV Q8H ON LICENSE OF [facility] Stop: 04/11/17 12:00 Last Admin: 04/11/17 01:52 Dose: 100 mls/hr Dextrose/Lactated Ringer's (Dextrose 5%-Lactated Ringers) 1,000 mls @ 80 mls/ hr IV ASDIRECTED ON LICENSE OF [facility] Last Admin: 04/11/17 01:53 Dose: 125 mls/hr Magnesium Sulfate 2 gm/ Sodium (Chloride) 54 mls @ 27 mls/hr IV Q6H ON LICENSE OF [facility] Stop: 04/12/17 05:59 Last Admin: 04/11/17 04:13 Dose: 27 mls/hr Labetalol HCl (Normodyne) 0 mg IVPUSH Q1H PRN; Protocol PRN Reason: Hypertension Last Admin: 04/09/17 20:46 Dose: 5 mg Lorazepam (Ativan) 0.5 - 1 mg PO Q4H PRN PRN Reason: Anxiety Last Admin: 04/10/17 20:56 Dose: 1 mg Metoclopramide HCl (Reglan) 10 mg IVPUSH Q6H ON LICENSE OF [facility] Last Admin: 04/11/17 08:38 Dose: 10 mg Metoprolol Succinate (Toprol Xl) 50 mg PO DAILY ON LICENSE OF [facility] Last Admin: 04/11/17 08:58 Dose: 50 mg Verify Scop Patch 0 each TOP DAILY ON LICENSE OF [facility] Last Admin: 04/10/17 11:34 Dose: Not Given Ondansetron HCl (Zofran) 4 mg IV Q4H PRN PRN Reason: N/V Last Admin: 04/11/17 07:54 Dose: 4 mg Phenol (Phenaseptic Liquid) 1 ml MUCMEM Q1H PRN PRN Reason: Sore Throat Last Admin: 04/08/17 01:08 Dose: 1 spray Scopolamine (Transderm-Scop) 1.5 mg TOP Q72H ON LICENSE OF [facility] Last Admin: 04/10/17 08:05 Dose: 1.5 mg Senna (Senna) 17.2 mg PO DAILY ON LICENSE OF [facility] Last Admin: 04/11/17 08:58 Dose: 17.2 mg Discontinued Medications Acetaminophen (Tylenol Extra Strength) 1,000 mg PO ONETIME ONE Stop: 04/04/17 10:31 Last Admin: 04/04/17 11:20 Dose: 1,000 mg Acetaminophen (Tylenol) 650 mg PO Q6H ON LICENSE OF [facility] Last Admin: 04/07/17 05:32 Dose: 650 mg Albuterol/Ipratropium (Duoneb 3.0-0.5 Mg/3 Ml) 3 ml INH ONCALL ONE Stop: 04/04/17 12:31 Last Admin: 04/04/17 12:13 Dose: 3 ml Alvimopan (Entereg) 12 mg PO ONETIME ONE Stop: 04/04/17 10:31 Last Admin: 04/04/17 11:20 Dose: 12 mg Alvimopan (Entereg) 12 mg PO Q12H [facility] Stop: 04/11/17 10:01 Last Admin: 04/06/17 21:24 Dose: 12 mg Bisacodyl (Dulcolax) 10 mg PO BID ON LICENSE OF [facility] Last Admin: 04/06/17 20:30 Dose: 10 mg Bisacodyl (Dulcolax) 10 mg RECTAL ONETIME ONE Stop: 04/07/17 18:01 Last Admin: 04/07/17 17:00 Dose: 10 mg Bupivacaine HCl (Marcaine 0.5%) Confirm Administered Dose 30 ml .ROUTE .STK-MED ONE Stop: 04/04/17 13:03 Bupivacaine HCl (Marcaine 0.5%) Confirm Administered Dose 50 ml .ROUTE .STK-MED ONE Stop: 04/06/17 05:26 Last Admin: 04/06/17 06:41 Dose: 10 ml Celecoxib (Celebrex) 200 mg PO ONETIME ONE Stop: 04/04/17 10:31 Last Admin: 04/04/17 11:19 Dose: 200 mg Dexamethasone (Dexamethasone) Confirm Administered Dose 4 mg .ROUTE .STK-MED ONE Stop: 04/04/17 11:29 Diphenhydramine HCl (Benadryl) 25 mg IVPUSH Q6H PRN PRN Reason: ITCHING Last Admin: 04/05/17 15:40 Dose: 25 mg Doxazosin Mesylate (Cardura) 2 mg PO DAILY ON LICENSE OF [facility] Last Admin: 04/11/17 08:57 Dose: 2 mg Fentanyl (Sublimaze) Confirm Administered Dose 100 mcg .ROUTE .STK-MED ONE Stop: 04/03/17 07:59 Fentanyl (Sublimaze) Confirm Administered Dose 100 mcg .ROUTE .STK-MED ONE Stop: 04/04/17 12:54 Fentanyl (Sublimaze) Confirm Administered Dose 100 mcg .ROUTE .STK-MED ONE Stop: 04/04/17 13:44 Fentanyl (Sublimaze) Confirm Administered Dose 100 mcg .ROUTE .STK-MED ONE Stop: 04/06/17 06:08 Fentanyl Citrate (Fentanyl) Confirm Administered Dose 500 mcg .ROUTE .STK-MED ONE Stop: 04/04/17 11:29 Furosemide (Lasix) 20 mg IVPUSH ONETIME ONE Stop: 04/06/17 14:01 Last Admin: 04/06/17 13:52 Dose: 20 mg Furosemide (Lasix) 20 mg IVPUSH ONETIME ONE Stop: 04/08/17 21:05 Last Admin: 04/08/17 21:27 Dose: 20 mg Furosemide (Lasix) 20 mg IVPUSH ONETIME ONE Stop: 04/09/17 09:01 Last Admin: 04/09/17 09:42 Dose: 20 mg Glycopyrrolate (Robinul) Confirm Administered Dose 1 mg .ROUTE .STK-MED ONE Stop: 04/04/17 11:29 Hydromorphone HCl (Dilaudid [employer]le W[employer]pping [employer] 15 Mg In Ns 30 Ml) 0 mg IV ASDIRECTED PRN; Protocol PRN Reason: [employer] PAIN [employer]OL Last Admin: 04/10/17 03:26 Dose: 15 mg Hydroxyzine HCl (Vistaril) 50 mg IM ONETIME ONE Stop: 04/04/17 14:48 Last Admin: 04/04/17 14:55 Dose: 50 mg Hydroxyzine HCl (Vistaril) Confirm Administered Dose 100 mg .ROUTE .STK-MED ONE Stop: 04/04/17 14:49 Last Admin: 04/06/17 16:32 Dose: Not Given Sodium Chloride (Normal Saline) 1,000 mls @ 100 mls/hr IV ASDIRECTED [facility] Last Admin: 04/03/17 07:55 Dose: 100 mls/hr Dextrose/Lactated Ringer's (Dextrose 5%-Lactated Ringers) 1,000 mls @ 100 mls/ hr IV ASDIRECTED [facility] Last Infusion: 04/04/17 15:44 Dose: Infused Cefoxitin Sodium 2 gm/ Sodium (Chloride) 50 mls @ 100 mls/hr IV ONCALL ONE Stop: 04/04/17 12:59 Last Admin: 04/04/17 13:38 Dose: 100 mls/hr Fentanyl 2,500 mcg/ Sodium (Chloride) 250 mls @ 0 mls/hr EPIDUR TITRATE DALE; Titrate PRN Reason: Protocol Last Admin: 04/06/17 04:57 Dose: 12 mls/hr, 12 mls/hr Sodium Chloride (Normal Saline) Confirm Administered Dose 20 mls @ as directed .ROUTE .STK-MED ONE Stop: 04/04/17 13:03 Acetaminophen (Ofirmev) Confirm Administered Dose 100 mls @ as directed IV .[facility] ONE Stop: 04/04/17 13:10 Lactated Ringer's (Ringers, Lactated) Confirm Administered Dose 1,000 mls @ as directed .ROUTE .[facility] ONE Stop: 04/04/17 13:21 Naloxone HCl 0.4 mg/ Dextrose/ (Lactated Ringer's) 1,001 mls @ 150 mls/hr IV ASDIRECTED ON LICENSE OF [facility] Dextrose/Lactated Ringer's (Dextrose 5%-Lactated Ringers) 1,000 mls @ 175 mls/ hr IV ASDIRECTED ON LICENSE OF [facility] Last Admin: 04/04/17 16:46 Dose: 175 mls/hr Cefoxitin Sodium 2 gm/ Sodium (Chloride) 50 mls @ 100 mls/hr IV Q6H ON LICENSE OF [facility] Last Admin: 04/06/17 06:00 Dose: 100 mls/hr Acetaminophen 1,000 mg/ Premix 100 mls @ 400 mls/hr IV Q6H ON LICENSE OF [facility] Stop: 04/05/17 12:44 Last Admin: 04/05/17 11:58 Dose: 400 mls/hr Naloxone HCl 0.4 mg/ Dextrose/ (Lactated Ringer's) 1,001 mls @ 175 mls/hr IV ASDIRECTED ON LICENSE OF [facility] Last Admin: 04/05/17 04:28 Dose: 175 mls/hr Dextrose/Lactated Ringer's (Dextrose 5%-Lactated Ringers) 1,000 mls @ 100 mls/ hr IV ASDIRECTED ON LICENSE OF [facility] Last Admin: 04/07/17 05:34 Dose: 100 mls/hr Naloxone HCl 0.4 mg/ Dextrose/ (Lactated Ringer's) 1,001 mls @ 100 mls/hr IV ASDIRECTED ON LICENSE OF [facility] Clindamycin Phosphate 900 mg/ (Sodium Chloride) 106 mls @ 200 mls/hr IV ONETIME ONE Stop: 04/06/17 07:46 Last Admin: 04/06/17 06:57 Dose: 200 mls/hr Piperacillin/Tazobactam/ (Dextrose 3.375 gm/ Premix) 50 mls @ 100 mls/hr IV Q6H ON LICENSE OF [facility] Last Admin: 04/10/17 01:55 Dose: 100 mls/hr Clindamycin Phosphate 900 mg/ (Sodium Chloride) 106 mls @ 200 mls/hr IV Q8H ON LICENSE OF [facility] Last Admin: 04/10/17 06:51 Dose: 200 mls/hr Dextrose/Lactated Ringer's (Dextrose 5%-Lactated Ringers) 1,000 mls @ 150 mls/ hr IV ASDIRECTED ON LICENSE OF [facility] Last Admin: 04/08/17 01:12 Dose: 150 mls/hr Magnesium Sulfate 2 gm/ Premix 50 mls @ 25 mls/hr IV Q6H ON LICENSE OF [facility] Stop: 04/12/17 05:59 Potassium Chloride 20 meq/Lidocaine HCl 2 ml/ Sodium Chloride 112 mls @ 56 mls/ hr IV Q2H ON LICENSE OF [facility] Stop: 04/09/17 15:59 Last Admin: 04/09/17 15:13 Dose: 56 mls/hr Ibuprofen (Motrin) 600 mg PO QID ON LICENSE OF [facility] Last Admin: 04/07/17 05:33 Dose: 600 mg Ketorolac Tromethamine (Toradol) Confirm Administered Dose 60 mg .ROUTE .STK- MED ONE Stop: 04/04/17 12:52 Ketorolac Tromethamine (Toradol) 60 mg IM ONETIME ONE Stop: 04/11/17 08:16 Last Admin: 04/11/17 08:01 Dose: 60 mg Lidocaine/Epinephrine (Xylocaine 1% With Epinephrine 1:100,000) Confirm Administered Dose 50 ml .ROUTE .STK-MED ONE Stop: 04/06/17 05:26 Last Admin: 04/06/17 06:41 Dose: 10 ml Meperidine HCl (Demerol) 100 mg IM ONETIME ONE Stop: 04/04/17 14:47 Last Admin: 04/04/17 14:56 Dose: 100 mg Meperidine HCl (Demerol) Confirm Administered Dose 100 mg .ROUTE .STK-MED ONE Stop: 04/04/17 14:49 Last Admin: 04/06/17 16:32 Dose: Not Given Meperidine HCl (Demerol) 75 mg IM ASDIRECTED PRN PRN Reason: PAIN Stop: 04/05/17 06:00 Meropenem (Merrem) Confirm Administered Dose 500 mg .ROUTE .STK-MED ONE Stop: 04/04/17 13:35 Last Admin: 04/04/17 14:06 Dose: 500 mg Meropenem (Merrem) Confirm Administered Dose 500 mg .ROUTE .STK-MED ONE Stop: 04/06/17 05:26 Last Admin: 04/06/17 06:45 Dose: 500 mg Midazolam HCl (Versed 1 Mg/Ml) Confirm Administered Dose 2 mg .ROUTE .STK-MED ONE Stop: 04/03/17 07:59 Naloxone HCl (Narcan) 0.1 mg IVPUSH Q5M PRN PRN Reason: RESP RATE LESS THAN 6/MINUTE Last Admin: 04/04/17 15:44 Dose: 0.2 mg Naloxone HCl (Narcan) Confirm Administered Dose 0.4 mg .ROUTE .STK-MED ONE Stop: 04/04/17 11:40 Naloxone HCl (Narcan) Confirm Administered Dose 0.4 mg .ROUTE .STK-MED ONE Stop: 04/04/17 14:41 Naloxone HCl (Narcan) 0.4 mg IV ASDIRECTED PRN PRN Reason: ITCHING Last Admin: 04/05/17 04:30 Dose: 0.4 mg Naloxone HCl (Narcan) 0.1 mg IV ASDIRECTED PRN PRN Reason: decreased respiratory rate Neostigmine Methylsulfate (Neostigmine) Confirm Administered Dose 5 mg .ROUTE .STK-MED ONE Stop: 04/04/17 11:29 Ondansetron HCl (Zofran) Confirm Administered Dose 4 mg .ROUTE .STK-MED ONE Stop: 04/04/17 11:29 Potassium Chloride (Klor-Con M20) 40 meq PO ONETIME ONE Stop: 04/10/17 12:31 Last Admin: 04/10/17 13:56 Dose: 40 meq Propofol (Diprivan 20 Ml) Confirm Administered Dose 200 mg .ROUTE .STK-MED ONE Stop: 04/03/17 07:58 Propofol (Diprivan 20 Ml) Confirm Administered Dose 200 mg .ROUTE .STK-MED ONE Stop: 04/03/17 08:40 Propofol (Diprivan 20 Ml) Confirm Administered Dose 200 mg .ROUTE .STK-MED ONE Stop: 04/04/17 11:29 Propofol (Diprivan 20 Ml) Confirm Administered Dose 200 mg .ROUTE .STK-MED ONE Stop: 04/06/17 06:07 Rocuronium [place] (Zemuron) Confirm Administered Dose 50 mg .ROUTE .STK-MED ONE Stop: 04/04/17 11:29 Scopolamine (Transderm-Scop) Confirm Administered Dose 1.5 mg .ROUTE .STK-MED ONE Stop: 04/04/17 14:12 Succinylcholine Chloride (Quelicin) Confirm Administered Dose 200 mg .ROUTE .STK -MED ONE Stop: 04/04/17 11:29 Tamsulosin HCl (Flomax) 0.4 mg PO BEDTIME ON LICENSE OF [facility] Last Admin: 04/06/17 20:30 Dose: 0.4 mg Tramadol HCl (Ultram) 50 mg PO QID ON LICENSE OF [facility] Last Admin: 04/07/17 05:32 Dose: 50 mg - Exam General: Alert, Oriented Neck: Supple Lungs: Clear to Auscultation, Normal Respiratory Effort Cardiovascular: Regular Rate, Regular Rhythm GI/Abdominal Exam: Normal Bowel Sounds, Tender Peripheral Pulses: 1+: Radial (L), Radial (R) - Problem List Review Problem List Initiated/Reviewed/Updated: Yes - My Orders Last 24 Hours: My Active Orders 04/11/17 09:00 Metoprolol Succinate [Toprol XL] 50 mg PO DAILY 04/12/17 09:00 Doxazosin [Cardura] 4 mg PO DAILY - Plan Plan:: Assessment?Plan: #1. Hypertension. Have added Metoprolol to control the BP and will follow. Have started with increased dose of Cardura.
[2017-04-11] MEDS: VERIFY SCOP PATCH TOP SCH (10:22)
[2017-04-11] MEDS: LORazepam 0.5 MG Tab PO PRN (17:38)
[2017-04-11] MEDS: amLODIPine 5 MG Tab PO SCH (20:51)
[2017-04-11] MEDS ORDERED: hydrOXYzine HCl 100 MG/2 ML SDV IM PRN (22:51)
[2017-04-11] MEDS ORDERED: HYDROmorphone/Normal Saline 15 MG/30 ML PCA IV SCH (23:00)
[2017-04-11] MEDS: LORazepam 2 MG/ML MDV IVPUSH PRN (23:11)
[2017-04-12] MEDS: Metoclopramide 10 MG/2 ML SDV IVPUSH SCH ×4 (01:38→19:47)
[2017-04-12] MEDS: Dextrose 5%-Lactated Ringers 1,000 ML IV SCH ×2 (04:58→19:47)
[2017-04-12] MEDS: Albuterol/Ipratropium 3.0-0.5 MG/3 ML Neb Soln INH SCH ×4 (07:01→20:45)
[2017-04-12] MEDS ORDERED: Naloxone 0.4 MG/ML SDV IV PRN (07:03)
[2017-04-12] MEDS ORDERED: Ketorolac 60 MG/2 ML SDV IM ONE (08:00)
[2017-04-12] MEDS ORDERED: Iopamidol 612 MG/ML 150 ML Bottle IV STA (08:07)
[2017-04-12] MEDS: Doxazosin 4 MG Tab PO SCH (09:01)
[2017-04-12] MEDS: Metoprolol Succinate 50 MG Tab.ER PO SCH (09:01)
[2017-04-12] MEDS: VERIFY SCOP PATCH TOP SCH (09:02)
--- NOTE | 2017-04-12 09:10 | PCM.PN ---
- General Info Date of Service: 04/12/17 Functional Status: Reports: Pain Controlled - Review of Systems General: Reports: Weakness HEENT: Reports: No Symptoms Pulmonary: Reports: No Symptoms Cardiovascular: Reports: No Symptoms Gastrointestinal: Reports: Other (NG tube in place) Genitourinary: Reports: No Symptoms Musculoskeletal: Reports: No Symptoms Skin: Reports: No Symptoms Neurological: Reports: No Symptoms Psychiatric: Reports: No Symptoms - Patient Data Vitals - Most Recent: Last Vital Signs Temp 97.2 F 04/12/17 07:00 Pulse 96 04/12/17 09:01 Resp 18 04/12/17 07:00 BP 150/90 H 04/12/17 09:01 Pulse Ox 96 04/12/17 07:09 Weight - Most Recent: 182 lb 15.986 oz I&O - Last 24 Hours: Intake & Output 04/11/17 04/12/17 04/12/17 22:59 06:59 14:59 Intake Total 1266 1030 Output Total 300 250 200 Balance 966 780 -200 Lab Results Last 24 Hours: Laboratory Results - last 24 hr 04/12/17 04/12/17 Range/Units 04:07 05:15 WBC 6.7 (4.5-11.0) K/uL RBC 4.23 L (4.30-5.90) M/uL Hgb 13.0 (12.0-15.0) g/dL Hct 38.8 L (40.0-54.0) % MCV 92 (80-98) fL MCH 31 (27-31) pg MCHC 34 (32-36) % Plt Count 349 (150-400) K/uL Sodium 138 L (140-148) mmol/L Potassium 3.1 L (3.6-5.2) mmol/L Chloride 104 (100-108) mmol/L Carbon Dioxide 28 (21-32) mmol/L Anion Gap 9.1 (5.0-14.0) mmol/L BUN 5 L (7-18) mg/dL Creatinine 0.9 (0.8-1.3) mg/dL Est Cr Clr Drug Dosing 97.12 mL/min Estimated GFR (MDRD) > 60 (>60) Glucose 102 (74-106) mg/dL Calcium 8.2 L (8.5-10.1) mg/dL Phosphorus 4.2 (2.5-4.9) mg/dL Total Bilirubin 0.3 (0.2-1.0) mg/dL AST 31 (15-37) U/L ALT 34 (12-78) U/L Alkaline Phosphatase 68 (46-116) U/L Total Protein 6.6 (6.4-8.2) g/dL Albumin 2.6 L (3.4-5.0) g/dL Globulin 4.0 H (2.3-3.5) g/dL Albumin/Globulin Ratio 0.7 L (1.2-2.2) Med Orders - Current: Current Medications Acetaminophen/Caffeine (Excedrin Tension Headache) 2 tab PO Q6H PRN PRN Reason: Headache Hydrocodone Bitart/Acetaminophen (Mooers 325-5 Mg) 1 - 2 tab PO Q4H PRN PRN Reason: Pain Last Admin: 04/11/17 20:53 Dose: 2 tab Albuterol/Ipratropium (Duoneb 3.0-0.5 Mg/3 Ml) 3 ml INH QIDRT [facility] Last Admin: 04/12/17 07:01 Dose: 3 ml Albuterol/Ipratropium (Duoneb 3.0-0.5 Mg/3 Ml) 3 ml INH ASDIRECTED PRN PRN Reason: Shortness of Breath Amlodipine Besylate (Norvasc) 5 mg PO DAILY@2100 [facility] Last Admin: 04/11/17 20:51 Dose: 5 mg Doxazosin Mesylate (Cardura) 4 mg PO DAILY [facility] Last Admin: 04/12/17 09:01 Dose: 4 mg Hydromorphone HCl (Dilaudid Account Executive Key Accounts 15 Mg In Ns 30 Ml) 0 mg IV ASDIRECTED PRN; Protocol PRN Reason: PAIN Hydroxyzine HCl (Vistaril) 50 mg IM Q4H PRN PRN Reason: Other Dextrose/Lactated Ringer's (Dextrose 5%-Lactated Ringers) 1,000 mls @ 125 mls/ hr IV ASDIRECTED [facility] Labetalol HCl (Normodyne) 0 mg IVPUSH Q1H PRN; Protocol PRN Reason: Hypertension Last Admin: 04/09/17 20:46 Dose: 5 mg Lorazepam (Ativan) 0.5 - 1 mg PO Q4H PRN PRN Reason: Anxiety Last Admin: 04/11/17 17:38 Dose: 1 mg Lorazepam (Ativan) 1 mg IVPUSH Q4H PRN PRN Reason: Anxiety Last Admin: 04/11/17 23:11 Dose: 1 mg Metoclopramide HCl (Reglan) 10 mg IVPUSH Q6H [facility] Last Admin: 04/12/17 08:00 Dose: 10 mg Metoprolol Succinate (Toprol Xl) 50 mg PO DAILY [facility] Last Admin: 04/12/17 09:01 Dose: 50 mg Naloxone HCl (Narcan) 0.1 mg IV ASDIRECTED PRN PRN Reason: decreased respiratory rate Verify Scop Patch 0 each TOP DAILY [facility] Last Admin: 04/12/17 09:02 Dose: Not Given Ondansetron HCl (Zofran) 4 mg IV Q4H PRN PRN Reason: N/V Last Admin: 04/11/17 20:53 Dose: 4 mg Phenol (Phenaseptic Liquid) 1 ml MUCMEM Q1H PRN PRN Reason: Sore Throat Last Admin: 04/08/17 01:08 Dose: 1 spray Scopolamine (Transderm-Scop) 1.5 mg TOP Q72H [facility] Last Admin: 04/10/17 08:05 Dose: 1.5 mg Senna (Senna) 17.2 mg PO BEDTIME [facility] Discontinued Medications Acetaminophen (Tylenol Extra Strength) 1,000 mg PO ONETIME ONE Stop: 04/04/17 10:31 Last Admin: 04/04/17 11:20 Dose: 1,000 mg Acetaminophen (Tylenol) 650 mg PO Q6H [facility] Last Admin: 04/07/17 05:32 Dose: 650 mg Albuterol/Ipratropium (Duoneb 3.0-0.5 Mg/3 Ml) 3 ml INH ONCALL ONE Stop: 04/04/17 12:31 Last Admin: 04/04/17 12:13 Dose: 3 ml Alvimopan (Entereg) 12 mg PO ONETIME ONE Stop: 04/04/17 10:31 Last Admin: 04/04/17 11:20 Dose: 12 mg Alvimopan (Entereg) 12 mg PO Q12H [facility] Stop: 04/11/17 10:01 Last Admin: 04/06/17 21:24 Dose: 12 mg Bisacodyl (Dulcolax) 10 mg PO BID [facility] Last Admin: 04/06/17 20:30 Dose: 10 mg Bisacodyl (Dulcolax) 10 mg RECTAL ONETIME ONE Stop: 04/07/17 18:01 Last Admin: 04/07/17 17:00 Dose: 10 mg Bupivacaine HCl (Marcaine 0.5%) Confirm Administered Dose 30 ml .ROUTE .STK-MED ONE Stop: 04/04/17 13:03 Bupivacaine HCl (Marcaine 0.5%) Confirm Administered Dose 50 ml .ROUTE .STK-MED ONE Stop: 04/06/17 05:26 Last Admin: 04/06/17 06:41 Dose: 10 ml Celecoxib (Celebrex) 200 mg PO ONETIME ONE Stop: 04/04/17 10:31 Last Admin: 04/04/17 11:19 Dose: 200 mg Dexamethasone (Dexamethasone) Confirm Administered Dose 4 mg .ROUTE .STK-MED ONE Stop: 04/04/17 11:29 Diphenhydramine HCl (Benadryl) 25 mg IVPUSH Q6H PRN PRN Reason: ITCHING Last Admin: 04/05/17 15:40 Dose: 25 mg Doxazosin Mesylate (Cardura) 2 mg PO DAILY [facility] Last Admin: 04/11/17 08:57 Dose: 2 mg Fentanyl (Sublimaze) Confirm Administered Dose 100 mcg .ROUTE .STK-MED ONE Stop: 04/03/17 07:59 Fentanyl (Sublimaze) Confirm Administered Dose 100 mcg .ROUTE .STK-MED ONE Stop: 04/04/17 12:54 Fentanyl (Sublimaze) Confirm Administered Dose 100 mcg .ROUTE .STK-MED ONE Stop: 04/04/17 13:44 Fentanyl (Sublimaze) Confirm Administered Dose 100 mcg .ROUTE .STK-MED ONE Stop: 04/06/17 06:08 Fentanyl Citrate (Fentanyl) Confirm Administered Dose 500 mcg .ROUTE .STK-MED ONE Stop: 04/04/17 11:29 Furosemide (Lasix) 20 mg IVPUSH ONETIME ONE Stop: 04/06/17 14:01 Last Admin: 04/06/17 13:52 Dose: 20 mg Furosemide (Lasix) 20 mg IVPUSH ONETIME ONE Stop: 04/08/17 21:05 Last Admin: 04/08/17 21:27 Dose: 20 mg Furosemide (Lasix) 20 mg IVPUSH ONETIME ONE Stop: 04/09/17 09:01 Last Admin: 04/09/17 09:42 Dose: 20 mg Glycopyrrolate (Robinul) Confirm Administered Dose 1 mg .ROUTE .STK-MED ONE Stop: 04/04/17 11:29 Hydromorphone HCl (Dilaudid Account [employer] Accounts 15 Mg In Ns 30 Ml) 0 mg IV ASDIRECTED PRN; Protocol PRN Reason: [employer] PAIN CONTROL Last Admin: 04/10/17 03:26 Dose: 15 mg Hydromorphone HCl (Dilaudid Account [employer] Accounts 15 Mg In Ns 30 Ml) 15 mg IV ASDIRECTED [facility] PRN Reason: Protocol Last Admin: 04/12/17 00:19 Dose: 15 mg Hydroxyzine HCl (Vistaril) 50 mg IM ONETIME ONE Stop: 04/04/17 14:48 Last Admin: 04/04/17 14:55 Dose: 50 mg Hydroxyzine HCl (Vistaril) Confirm Administered Dose 100 mg .ROUTE .STK-MED ONE Stop: 04/04/17 14:49 Last Admin: 04/06/17 16:32 Dose: Not Given Sodium Chloride (Normal Saline) 1,000 mls @ 100 mls/hr IV ASDIRECTED [facility] Last Admin: 04/03/17 07:55 Dose: 100 mls/hr Dextrose/Lactated Ringer's (Dextrose 5%-Lactated Ringers) 1,000 mls @ 100 mls/ hr IV ASDIRECTED [facility] Last Infusion: 04/04/17 15:44 Dose: Infused Cefoxitin Sodium 2 gm/ Sodium (Chloride) 50 mls @ 100 mls/hr IV ONCALL ONE Stop: 04/04/17 12:59 Last Admin: 04/04/17 13:38 Dose: 100 mls/hr Fentanyl 2,500 mcg/ Sodium (Chloride) 250 mls @ 0 mls/hr EPIDUR TITRATE DALE; Titrate PRN Reason: Protocol Last Admin: 04/06/17 04:57 Dose: 12 mls/hr, 12 mls/hr Sodium Chloride (Normal Saline) Confirm Administered Dose 20 mls @ as directed .ROUTE .STK-MED ONE Stop: 04/04/17 13:03 Acetaminophen (Ofirmev) Confirm Administered Dose 100 mls @ as directed IV .STK- MED ONE Stop: 04/04/17 13:10 Lactated Ringer's (Ringers, Lactated) Confirm Administered Dose 1,000 mls @ as directed .ROUTE .K-MED ONE Stop: 04/04/17 13:21 Naloxone HCl 0.4 mg/ Dextrose/ (Lactated Ringer's) 1,001 mls @ 150 mls/hr IV ASDIRECTED [facility] Dextrose/Lactated Ringer's (Dextrose 5%-Lactated Ringers) 1,000 mls @ 175 mls/ hr IV ASDIRECTED [facility] Last Admin: 04/04/17 16:46 Dose: 175 mls/hr Cefoxitin Sodium 2 gm/ Sodium (Chloride) 50 mls @ 100 mls/hr IV Q6H [facility] Last Admin: 04/06/17 06:00 Dose: 100 mls/hr Acetaminophen 1,000 mg/ Premix 100 mls @ 400 mls/hr IV Q6H [facility] Stop: 04/05/17 12:44 Last Admin: 04/05/17 11:58 Dose: 400 mls/hr Naloxone HCl 0.4 mg/ Dextrose/ (Lactated Ringer's) 1,001 mls @ 175 mls/hr IV ASDIRECTED [facility] Last Admin: 04/05/17 04:28 Dose: 175 mls/hr Dextrose/Lactated Ringer's (Dextrose 5%-Lactated Ringers) 1,000 mls @ 100 mls/ hr IV ASDIRECTED [facility] Last Admin: 04/07/17 05:34 Dose: 100 mls/hr Naloxone HCl 0.4 mg/ Dextrose/ (Lactated Ringer's) 1,001 mls @ 100 mls/hr IV ASDIRECTED [facility] Clindamycin Phosphate 900 mg/ (Sodium Chloride) 106 mls @ 200 mls/hr IV ONETIME ONE Stop: 04/06/17 07:46 Last Admin: 04/06/17 06:57 Dose: 200 mls/hr Piperacillin/Tazobactam/ (Dextrose 3.375 gm/ Premix) 50 mls @ 100 mls/hr IV Q6H [facility] Last Admin: 04/10/17 01:55 Dose: 100 mls/hr Clindamycin Phosphate 900 mg/ (Sodium Chloride) 106 mls @ 200 mls/hr IV Q8H [facility] Last Admin: 04/10/17 06:51 Dose: 200 mls/hr Erythromycin Lactobionate 125 (mg/ Sodium Chloride) 100 mls @ 100 mls/hr IV Q8H [facility] Stop: 04/11/17 12:00 Last Admin: 04/11/17 10:19 Dose: 100 mls/hr Dextrose/Lactated Ringer's (Dextrose 5%-Lactated Ringers) 1,000 mls @ 150 mls/ hr IV ASDIRECTED [facility] Last Admin: 04/08/17 01:12 Dose: 150 mls/hr Dextrose/Lactated Ringer's (Dextrose 5%-Lactated Ringers) 1,000 mls @ 80 mls/ hr IV ASDIRECTED [facility] Last Infusion: 04/12/17 04:59 Dose: 80 mls/hr Magnesium Sulfate 2 gm/ Premix 50 mls @ 25 mls/hr IV Q6H [facility] Stop: 04/12/17 05:59 Potassium Chloride 20 meq/Lidocaine HCl 2 ml/ Sodium Chloride 112 mls @ 56 mls/ hr IV Q2H [facility] Stop: 04/09/17 15:59 Last Admin: 04/09/17 15:13 Dose: 56 mls/hr Magnesium Sulfate 2 gm/ Sodium (Chloride) 54 mls @ 27 mls/hr IV Q6H [facility] Stop: 04/12/17 05:59 Last Admin: 04/12/17 03:29 Dose: 27 mls/hr Sodium Chloride (Normal Saline) 78 mls @ 3.8 mls/sec IV ASDIRECTED [facility] Stop: 04/12/17 08:08 Last Admin: 04/12/17 08:22 Dose: 3.8 mls/sec Ibuprofen (Motrin) 600 mg PO QID [facility] Last Admin: 04/07/17 05:33 Dose: 600 mg Iopamidol (Isovue-300 (61%)) 124 ml IV . DIRECTED [facility] Stop: 04/12/17 08:08 Last Admin: 04/12/17 08:21 Dose: 150 ml Ketorolac Tromethamine (Toradol) Confirm Administered Dose 60 mg .ROUTE .STK- MED ONE Stop: 04/04/17 12:52 Ketorolac Tromethamine (Toradol) 60 mg IM ONETIME ONE Stop: 04/11/17 08:16 Last Admin: 04/11/17 08:01 Dose: 60 mg Ketorolac Tromethamine (Toradol) 60 mg IM ONETIME ONE Stop: 04/12/17 08:01 Last Admin: 04/12/17 07:59 Dose: 60 mg Lidocaine/Epinephrine (Xylocaine 1% With Epinephrine 1:100,000) Confirm Administered Dose 50 ml .ROUTE .STK-MED ONE Stop: 04/06/17 05:26 Last Admin: 04/06/17 06:41 Dose: 10 ml Meperidine HCl (Demerol) 100 mg IM ONETIME ONE Stop: 04/04/17 14:47 Last Admin: 04/04/17 14:56 Dose: 100 mg Meperidine HCl (Demerol) Confirm Administered Dose 100 mg .ROUTE .STK-MED ONE Stop: 04/04/17 14:49 Last Admin: 04/06/17 16:32 Dose: Not Given Meperidine HCl (Demerol) 75 mg IM ASDIRECTED PRN PRN Reason: PAIN Stop: 04/05/17 06:00 Meropenem (Merrem) Confirm Administered Dose 500 mg .ROUTE .STK-MED ONE Stop: 04/04/17 13:35 Last Admin: 04/04/17 14:06 Dose: 500 mg Meropenem (Merrem) Confirm Administered Dose 500 mg .ROUTE .STK-MED ONE Stop: 04/06/17 05:26 Last Admin: 04/06/17 06:45 Dose: 500 mg Midazolam HCl (Versed 1 Mg/Ml) Confirm Administered Dose 2 mg .ROUTE .STK-MED ONE Stop: 04/03/17 07:59 Naloxone HCl (Narcan) 0.1 mg IVPUSH Q5M PRN PRN Reason: RESP RATE LESS THAN 6/MINUTE Last Admin: 04/04/17 15:44 Dose: 0.2 mg Naloxone HCl (Narcan) Confirm Administered Dose 0.4 mg .ROUTE .STK-MED ONE Stop: 04/04/17 11:40 Naloxone HCl (Narcan) Confirm Administered Dose 0.4 mg .ROUTE .STK-MED ONE Stop: 04/04/17 14:41 Naloxone HCl (Narcan) 0.4 mg IV ASDIRECTED PRN PRN Reason: ITCHING Last Admin: 04/05/17 04:30 Dose: 0.4 mg Naloxone HCl (Narcan) 0.1 mg IV ASDIRECTED PRN PRN Reason: decreased respiratory rate Neostigmine Methylsulfate (Neostigmine) Confirm Administered Dose 5 mg .ROUTE .STK-MED ONE Stop: 04/04/17 11:29 Ondansetron HCl (Zofran) Confirm Administered Dose 4 mg .ROUTE .STK-MED ONE Stop: 04/04/17 11:29 Potassium Chloride (Klor-Con M20) 40 meq PO ONETIME ONE Stop: 04/10/17 12:31 Last Admin: 04/10/17 13:56 Dose: 40 meq Propofol (Diprivan 20 Ml) Confirm Administered Dose 200 mg .ROUTE .STK-MED ONE Stop: 04/03/17 07:58 Propofol (Diprivan 20 Ml) Confirm Administered Dose 200 mg .ROUTE .STK-MED ONE Stop: 04/03/17 08:40 Propofol (Diprivan 20 Ml) Confirm Administered Dose 200 mg .ROUTE .STK-MED ONE Stop: 04/04/17 11:29 Propofol (Diprivan 20 Ml) Confirm Administered Dose 200 mg .ROUTE .K-MED ONE Stop: 04/06/17 06:07 Rocuronium [place] (Zemuron) Confirm Administered Dose 50 mg .ROUTE .STK-MED ONE Stop: 04/04/17 11:29 Scopolamine (Transderm-Scop) Confirm Administered Dose 1.5 mg .ROUTE .STK-MED ONE Stop: 04/04/17 14:12 Senna (Senna) 17.2 mg PO DAILY [facility] Last Admin: 04/11/17 08:58 Dose: 17.2 mg Succinylcholine Chloride (Quelicin) Confirm Administered Dose 200 mg .ROUTE .STK -MED ONE Stop: 04/04/17 11:29 Tamsulosin HCl (Flomax) 0.4 mg PO BEDTIME [facility] Last Admin: 04/06/17 20:30 Dose: 0.4 mg Tramadol HCl (Ultram) 50 mg PO QID [facility] Last Admin: 04/07/17 05:32 Dose: 50 mg - Exam General: Alert, Oriented HEENT: Pupils Equal, Pupils Reactive, EOMI, Mucous Membr. Moist/[place] Neck: Supple Lungs: Clear to Auscultation, Normal Respiratory Effort Cardiovascular: Regular Rate, Regular Rhythm GI/Abdominal Exam: Normal Bowel Sounds, Soft, Non-Tender, No Organomegaly, No Distention, No Abnormal Bruit, No Mass, Pelvis Stable Back Exam: Normal Inspection, Full Range of Motion Extremities: Normal Inspection, Normal Range of Motion, Non-Tender, No Pedal Edema, Normal Capillary Refill Peripheral Pulses: 1+: Radial (L), Radial (R) Psy/Mental Status: Alert - Problem List Review Problem List Initiated/Reviewed/Updated: Yes - My Orders Last 24 Hours: My Active Orders 04/11/17 09:00 Metoprolol Succinate [Toprol XL] 50 mg PO DAILY 04/12/17 09:00 Doxazosin [Cardura] 4 mg PO DAILY - Plan Plan:: Assessment?Plan: #1. Hypertension. His pressure is elevated and unable to take PO meds have changed the PO meds to IV meds.
--- NOTE | 2017-04-12 09:20 | PN ---
DATE OF SERVICE: 04/12/2017 SUBJECTIVE: Rakesh was nauseated yesterday morning. He had nausea on and off throughout the day. Last evening, his abdomen became very distended. IV erythromycin is out of stock per equal opportunity officer. His last dose was at 10 a.m. NG was placed last evening, he had 265 out. He does feel better. He continues to have bowel movements, he had one medium formed on day shift. He did have a total of 3 loose stools. Voiding without difficulty. He does state that his abdomen feels better, is less distended with the NG. He reports headache, it is not as severe as yesterday. He states the Toradol helped quite a bit. He is afebrile. He has been up ambulating frequently. He is very talkative, congenial this morning, feeling better. Labs; potassium 3.1. WBC is 6.7, hemoglobin is 13. [place] round drain, incision line, is not putting out anything, keeps filled with air, so this will be removed. OBJECTIVE: GENERAL: Rakesh Portillo is a pleasant 56-year-old male. He is alert and talkative. VITAL SIGNS: TPR 97.2, 81, 18, and blood pressure 150/90. HEENT: Negative. NECK: Supple. HEART: Regular rate and rhythm. LUNGS: Clear. ABDOMEN: Sutures in place. GEOVANNY drain is full of air, unable to keep it deflated. Abdomen is not hard, slightly distended, tenderness is noted on each side of his incision. Passing flatus. EXTREMITIES: Without peripheral edema. ASSESSMENT: 1. Postoperative ileus. 2. Hypertension. 3. Headache. The patient states caffeine related. 4. Delayed primary closure of open abdominal incision on 04/06/2017. 5. 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 Date of surgery 04/04/2017. 6. Hypokalemia. PLAN: 1. IV KCl 60 mEq with lidocaine in 3 divided doses. 2. Clamp NG 45 minutes after medications if tolerated. 3. Discontinue GEOVANNY drain. 4. Check CT of abdomen and pelvis with IV: This a.m. 5. Increase IV to 125 mg/hour. 6. Check labs in a.m. 7. Toradol 60 mg IM one time for headache. 8. We will evaluate p.r.n. or in a.m. Josephine Horta PA-C /[id number]
[2017-04-12] MEDS: Enoxaparin 40 MG/0.4 ML Syringe SUBCUT SCH (10:33)
[2017-04-12] MEDS: Clindamycin Phosphate 900 MG in Sodium Chloride 0.9% 100 ML IV SCH ×2 (10:33→18:11)
[2017-04-12] MEDS: Piperacillin/Tazobactam/Dext 3.375 GM in Premix Bag 1 BAG IV SCH ×3 (10:33→21:01)
[2017-04-12] MEDS ORDERED: Bacitracin Oint 1 GM U/D Packet ONE (11:21)
[2017-04-12] MEDS: Potassium Chloride 20 MEQ, Lidocaine 1% 2 ML in Sodium Chloride 0.9% 100 ML IV SCH ×3 (11:30→15:35)
[2017-04-12] MEDS: Metoprolol Tartrate 5 MG/5 ML SDV IV SCH ×4 (11:31→21:50)
[2017-04-12] MEDS ORDERED: Lidocaine 1% with EPINEPHrine 1:100,000 50 ML MDV INJECT ONE (11:40)
[2017-04-12] MEDS: LORazepam 2 MG/ML MDV IVPUSH PRN (11:43)
[2017-04-12] MEDS ORDERED: Bacitracin Oint 1 GM U/D Packet TOP ONE (11:45)
[2017-04-12] MEDS: HYDROmorphone/Normal Saline 15 MG/30 ML PCA IV PRN (14:59)
[2017-04-12] MEDS: amLODIPine 5 MG Tab PO SCH (20:45)
[2017-04-12] MEDS: Sennosides 8.6 MG Tab PO SCH (20:49)
[2017-04-13] MEDS: Metoclopramide 10 MG/2 ML SDV IVPUSH SCH ×4 (02:24→20:53)
[2017-04-13] MEDS: Clindamycin Phosphate 900 MG in Sodium Chloride 0.9% 100 ML IV SCH ×3 (02:24→18:18)
[2017-04-13] MEDS: Piperacillin/Tazobactam/Dext 3.375 GM in Premix Bag 1 BAG IV SCH ×4 (03:59→21:01)
[2017-04-13] MEDS: Metoprolol Tartrate 5 MG/5 ML SDV IV SCH ×2 (04:02→10:55)
[2017-04-13] MEDS: Dextrose 5%-Lactated Ringers 1,000 ML IV SCH ×3 (04:03→22:44)
[2017-04-13] MEDS: LORazepam 0.5 MG Tab PO PRN (05:08)
[2017-04-13] MEDS: HYDROmorphone/Normal Saline 15 MG/30 ML PCA IV PRN (06:45)
[2017-04-13] MEDS: Albuterol/Ipratropium 3.0-0.5 MG/3 ML Neb Soln INH SCH ×4 (07:18→20:53)
--- NOTE | 2017-04-13 08:09 | PN ---
DATE OF SERVICE: 04/13/2017 SUBJECTIVE: Rakesh has been up ambulating, and he is active. Pain is controlled. Oral intake was 3835. He has been on clear liquid diet. The NG put out 2800. He has been helping himself to the kitchen. He does drink coke and coffee. Less distention, less bloating. Afebrile, temp max 98.5. Potassium this morning was 3.1. He did have a small amount of fluid drained from a seroma noted on CT and ultrasound from his right upper quadrant. This was drained by Deejay Valdez MD. Culture pending. REVIEW OF SYSTEMS: Remainder of review of systems negative for any pertinent positives and negatives. OBJECTIVE: GENERAL: Rakesh Portillo is a 56-year-old male. VITAL SIGNS: TPR is 98.5, 77, 16, and blood pressure 133/97. HEENT: Negative. NECK: Supple. HEART: Regular rate and rhythm. LUNGS: Clear. ABDOMEN: Amber in place. Abdomen is less tender and less distended. EXTREMITIES: Without peripheral edema. ASSESSMENT: 1. Postoperative ileus. 2. Small seroma, drained by Deejya Valdez MD, on 04/12/2017. 3. Hypertension. 4. Delayed primary closure of open abdominal incision on 04/06/2017. 5. 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 Date of surgery 04/04/2017. 6. Hypokalemia. PLAN: 1. KCl 60 mEq with lidocaine in 3 divided doses. 2. Clamp NG and unclamp if abdominal pain, bloating, or nausea. 3. Good pulmonary toilet. 4. We will evaluate p.r.n. or in a.m. 5. Check CBC, CMP, mag, phos in a.m. Josephine Horta PA-C /[id number]
[2017-04-13] MEDS: Enoxaparin 40 MG/0.4 ML Syringe SUBCUT SCH (08:14)
[2017-04-13] MEDS: Potassium Chloride 20 MEQ, Lidocaine 1% 2 ML in Sodium Chloride 0.9% 100 ML IV SCH ×3 (08:14→13:53)
[2017-04-13] MEDS: Doxazosin 4 MG Tab PO SCH (08:15)
[2017-04-13] MEDS: Scopolamine 1.5 MG Transdermal Patch TOP SCH (08:15)
[2017-04-13] MEDS: VERIFY SCOP PATCH TOP SCH (08:16)
--- NOTE | 2017-04-13 13:13 | PCM.PN ---
- General Info Date of Service: 04/13/17 Functional Status: Reports: Pain Controlled - Review of Systems General: Reports: No Symptoms HEENT: Reports: No Symptoms Pulmonary: Reports: No Symptoms Cardiovascular: Reports: No Symptoms Gastrointestinal: Reports: Abdominal Pain Genitourinary: Reports: No Symptoms Musculoskeletal: Reports: No Symptoms Neurological: Reports: No Symptoms Psychiatric: Reports: No Symptoms - Patient Data Vitals - Most Recent: Last Vital Signs Temp 98 F 04/13/17 11:00 Pulse 87 04/13/17 11:00 Resp 16 04/13/17 11:00 BP 133/77 04/13/17 11:00 Pulse Ox 92 L 04/13/17 12:15 Weight - Most Recent: 182 lb 15.986 oz I&O - Last 24 Hours: Intake & Output 04/12/17 04/13/17 04/13/17 22:59 06:59 14:59 Intake Total 2475 1491 2534 Output Total 2100 1075 625 Balance 656 145 1833 Lab Results Last 24 Hours: Laboratory Results - last 24 hr 04/13/17 Range/Units 04:00 Sodium 140 (140-148) mmol/L Potassium 3.1 L (3.6-5.2) mmol/L Chloride 103 (100-108) mmol/L Carbon Dioxide 29 (21-32) mmol/L Anion Gap 11.1 (5.0-14.0) mmol/L BUN 6 L (7-18) mg/dL Creatinine 0.9 (0.8-1.3) mg/dL Est Cr Clr Drug Dosing 97.12 mL/min Estimated GFR (MDRD) > 60 (>60) Glucose 87 (74-106) mg/dL Calcium 8.0 L (8.5-10.1) mg/dL Phosphorus 4.8 (2.5-4.9) mg/dL Magnesium 1.9 (1.8-2.4) mg/dL Total Bilirubin 0.4 (0.2-1.0) mg/dL AST 33 (15-37) U/L ALT 37 (12-78) U/L Alkaline Phosphatase 74 (46-116) U/L Total Protein 6.2 L (6.4-8.2) g/dL Albumin 2.5 L (3.4-5.0) g/dL Globulin 3.7 H (2.3-3.5) g/dL Albumin/Globulin Ratio 0.7 L (1.2-2.2) Rainer Results Last 24 Hours: Microbiology 04/12/17 11:25 Gram Stain - Final Other - Wound-Deep Wound Culture - Preliminary NO GROWTH AFTER 1 DAY Med Orders - Current: Current Medications Acetaminophen/Caffeine (Excedrin Tension Headache) 2 tab PO Q6H PRN PRN Reason: Headache Hydrocodone Bitart/Acetaminophen ([place] 325-5 Mg) 1 - 2 tab PO Q4H PRN PRN Reason: Pain Last Admin: 04/11/17 20:53 Dose: 2 tab Albuterol/Ipratropium (Duoneb 3.0-0.5 Mg/3 Ml) 3 ml INH QIDRT [facility] Last Admin: 04/13/17 10:51 Dose: 3 ml Albuterol/Ipratropium (Duoneb 3.0-0.5 Mg/3 Ml) 3 ml INH ASDIRECTED PRN PRN Reason: Shortness of Breath Amlodipine Besylate (Norvasc) 5 mg PO DAILY@2100 [facility] Last Admin: 04/12/17 20:45 Dose: 5 mg Doxazosin Mesylate (Cardura) 4 mg PO DAILY [facility] Last Admin: 04/13/17 08:15 Dose: 4 mg Enoxaparin Sodium (Lovenox) 40 mg SUBCUT DAILY [facility] Last Admin: 04/13/17 08:14 Dose: 40 mg Hydromorphone HCl (Dilaudid Machine Splitter 15 Mg In Ns 30 Ml) 0 mg IV ASDIRECTED PRN; Protocol PRN Reason: PAIN Last Admin: 04/13/17 06:45 Dose: 15 mg Hydroxyzine HCl (Vistaril) 50 mg IM Q4H PRN PRN Reason: Other Dextrose/Lactated Ringer's (Dextrose 5%-Lactated Ringers) 1,000 mls @ 125 mls/ hr IV ASDIRECTED [facility] Last Admin: 04/13/17 12:49 Dose: 125 mls/hr Piperacillin/Tazobactam/ (Dextrose 3.375 gm/ Premix) 50 mls @ 100 mls/hr IV Q6H [facility] Last Admin: 04/13/17 10:35 Dose: 100 mls/hr Clindamycin Phosphate 900 mg/ (Sodium Chloride) 106 mls @ 200 mls/hr IV Q8H [facility] Last Admin: 04/13/17 10:35 Dose: 200 mls/hr Potassium Chloride 20 meq/Lidocaine HCl 2 ml/ Sodium Chloride 112 mls @ 56 mls/ hr IV Q2H [facility] Stop: 04/13/17 13:59 Last Admin: 04/13/17 10:35 Dose: 56 mls/hr Labetalol HCl (Normodyne) 0 mg IVPUSH Q1H PRN; Protocol PRN Reason: Hypertension Last Admin: 04/09/17 20:46 Dose: 5 mg Lorazepam (Ativan) 0.5 - 1 mg PO Q4H PRN PRN Reason: Anxiety Last Admin: 04/13/17 05:08 Dose: 1 mg Lorazepam (Ativan) 1 mg IVPUSH Q4H PRN PRN Reason: Anxiety Last Admin: 04/12/17 11:43 Dose: 1 mg Metoclopramide HCl (Reglan) 10 mg IVPUSH Q6H [facility] Last Admin: 04/13/17 08:15 Dose: 10 mg Metoprolol Succinate (Toprol Xl) 50 mg PO DAILY [facility] Naloxone HCl (Narcan) 0.1 mg IV ASDIRECTED PRN PRN Reason: decreased respiratory rate Verify Scop Patch 0 each TOP DAILY [facility] Last Admin: 04/13/17 08:16 Dose: Not Given Ondansetron HCl (Zofran) 4 mg IV Q4H PRN PRN Reason: N/V Last Admin: 04/11/17 20:53 Dose: 4 mg Phenol (Phenaseptic Liquid) 1 ml MUCMEM Q1H PRN PRN Reason: Sore Throat Last Admin: 04/08/17 01:08 Dose: 1 spray Scopolamine (Transderm-Scop) 1.5 mg TOP Q72H [facility] Last Admin: 04/13/17 08:15 Dose: 1.5 mg Senna (Senna) 17.2 mg PO BEDTIME [facility] Last Admin: 04/12/17 20:49 Dose: 17.2 mg Discontinued Medications Acetaminophen (Tylenol Extra Strength) 1,000 mg PO ONETIME ONE Stop: 04/04/17 10:31 Last Admin: 04/04/17 11:20 Dose: 1,000 mg Acetaminophen (Tylenol) 650 mg PO Q6H [facility] Last Admin: 04/07/17 05:32 Dose: 650 mg Albuterol/Ipratropium (Duoneb 3.0-0.5 Mg/3 Ml) 3 ml INH ONCALL ONE Stop: 04/04/17 12:31 Last Admin: 04/04/17 12:13 Dose: 3 ml Alvimopan (Entereg) 12 mg PO ONETIME ONE Stop: 04/04/17 10:31 Last Admin: 04/04/17 11:20 Dose: 12 mg Alvimopan (Entereg) 12 mg PO Q12H [facility] Stop: 04/11/17 10:01 Last Admin: 04/06/17 21:24 Dose: 12 mg Bacitracin (Bacitracin Oint 1 Gm) Confirm Administered Dose 1 dose .ROUTE .STK- MED ONE Stop: 04/12/17 11:22 Last Admin: 04/12/17 11:29 Dose: 1 dose Bacitracin (Bacitracin Oint 1 Gm) 1 dose TOP ONETIME ONE Stop: 04/12/17 11:46 Last Admin: 04/12/17 13:19 Dose: 1 dose Bisacodyl (Dulcolax) 10 mg PO BID [facility] Last Admin: 04/06/17 20:30 Dose: 10 mg Bisacodyl (Dulcolax) 10 mg RECTAL ONETIME ONE Stop: 04/07/17 18:01 Last Admin: 04/07/17 17:00 Dose: 10 mg Bupivacaine HCl (Marcaine 0.5%) Confirm Administered Dose 30 ml .ROUTE .STK-MED ONE Stop: 04/04/17 13:03 Bupivacaine HCl (Marcaine 0.5%) Confirm Administered Dose 50 ml .ROUTE .STK-MED ONE Stop: 04/06/17 05:26 Last Admin: 04/06/17 06:41 Dose: 10 ml Celecoxib (Celebrex) 200 mg PO ONETIME ONE Stop: 04/04/17 10:31 Last Admin: 04/04/17 11:19 Dose: 200 mg Dexamethasone (Dexamethasone) Confirm Administered Dose 4 mg .ROUTE .STK-MED ONE Stop: 04/04/17 11:29 Diphenhydramine HCl (Benadryl) 25 mg IVPUSH Q6H PRN PRN Reason: ITCHING Last Admin: 04/05/17 15:40 Dose: 25 mg Doxazosin Mesylate (Cardura) 2 mg PO DAILY [facility] Last Admin: 04/11/17 08:57 Dose: 2 mg Fentanyl (Sublimaze) Confirm Administered Dose 100 mcg .ROUTE .STK-MED ONE Stop: 04/03/17 07:59 Fentanyl (Sublimaze) Confirm Administered Dose 100 mcg .ROUTE .STK-MED ONE Stop: 04/04/17 12:54 Fentanyl (Sublimaze) Confirm Administered Dose 100 mcg .ROUTE .STK-MED ONE Stop: 04/04/17 13:44 Fentanyl (Sublimaze) Confirm Administered Dose 100 mcg .ROUTE .STK-MED ONE Stop: 04/06/17 06:08 Fentanyl Citrate (Fentanyl) Confirm Administered Dose 500 mcg .ROUTE .STK-MED ONE Stop: 04/04/17 11:29 Furosemide (Lasix) 20 mg IVPUSH ONETIME ONE Stop: 04/06/17 14:01 Last Admin: 04/06/17 13:52 Dose: 20 mg Furosemide (Lasix) 20 mg IVPUSH ONETIME ONE Stop: 04/08/17 21:05 Last Admin: 04/08/17 21:27 Dose: 20 mg Furosemide (Lasix) 20 mg IVPUSH ONETIME ONE Stop: 04/09/17 09:01 Last Admin: 04/09/17 09:42 Dose: 20 mg Glycopyrrolate (Robinul) Confirm Administered Dose 1 mg .ROUTE .ST-MED ONE Stop: 04/04/17 11:29 Hydromorphone HCl (Dilaudid Machine Splitter 15 Mg In Ns 30 Ml) 0 mg IV ASDIRECTED PRN; 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 Last Admin: 04/10/17 03:26 Dose: 15 mg Hydromorphone HCl (Dilaudid Machine Splitter 15 Mg In Ns 30 Ml) 15 mg IV ASDIRECTED DALE PRN Reason: Protocol Last Admin: 04/12/17 00:19 Dose: 15 mg Hydroxyzine HCl (Vistaril) 50 mg IM ONETIME ONE Stop: 04/04/17 14:48 Last Admin: 04/04/17 14:55 Dose: 50 mg Hydroxyzine HCl (Vistaril) Confirm Administered Dose 100 mg .ROUTE .STK-MED ONE Stop: 04/04/17 14:49 Last Admin: 04/06/17 16:32 Dose: Not Given Sodium Chloride (Normal Saline) 1,000 mls @ 100 mls/hr IV ASDIRECTED [facility] Last Admin: 04/03/17 07:55 Dose: 100 mls/hr Dextrose/Lactated Ringer's (Dextrose 5%-Lactated Ringers) 1,000 mls @ 100 mls/ hr IV ASDIRECTED [facility] Last Infusion: 04/04/17 15:44 Dose: Infused Cefoxitin Sodium 2 gm/ Sodium (Chloride) 50 mls @ 100 mls/hr IV ONCALL ONE Stop: 04/04/17 12:59 Last Admin: 04/04/17 13:38 Dose: 100 mls/hr Fentanyl 2,500 mcg/ Sodium (Chloride) 250 mls @ 0 mls/hr EPIDUR TITRATE D[facility]; Titrate PRN Reason: Protocol Last Admin: 04/06/17 04:57 Dose: 12 mls/hr, 12 mls/hr Sodium Chloride (Normal Saline) Confirm Administered Dose 20 mls @ as directed .ROUTE .STK-MED ONE Stop: 04/04/17 13:03 Acetaminophen (Ofirmev) Confirm Administered Dose 100 mls @ as directed IV .STK- MED ONE Stop: 04/04/17 13:10 Lactated Ringer's (Ringers, Lactated) Confirm Administered Dose 1,000 mls @ as directed .ROUTE .STK-MED ONE Stop: 04/04/17 13:21 Naloxone HCl 0.4 mg/ Dextrose/ (Lactated Ringer's) 1,001 mls @ 150 mls/hr IV ASDIRECTED [facility] Dextrose/Lactated Ringer's (Dextrose 5%-Lactated Ringers) 1,000 mls @ 175 mls/ hr IV ASDIRECTED [facility] Last Admin: 04/04/17 16:46 Dose: 175 mls/hr Cefoxitin Sodium 2 gm/ Sodium (Chloride) 50 mls @ 100 mls/hr IV Q6H [facility] Last Admin: 04/06/17 06:00 Dose: 100 mls/hr Acetaminophen 1,000 mg/ Premix 100 mls @ 400 mls/hr IV Q6H [facility] Stop: 04/05/17 12:44 Last Admin: 04/05/17 11:58 Dose: 400 mls/hr Naloxone HCl 0.4 mg/ Dextrose/ (Lactated Ringer's) 1,001 mls @ 175 mls/hr IV ASDIRECTED [facility] Last Admin: 04/05/17 04:28 Dose: 175 mls/hr Dextrose/Lactated Ringer's (Dextrose 5%-Lactated Ringers) 1,000 mls @ 100 mls/ hr IV ASDIRECTED [facility] Last Admin: 04/07/17 05:34 Dose: 100 mls/hr Naloxone HCl 0.4 mg/ Dextrose/ (Lactated Ringer's) 1,001 mls @ 100 mls/hr IV ASDIRECTED [facility] Clindamycin Phosphate 900 mg/ (Sodium Chloride) 106 mls @ 200 mls/hr IV ONETIME ONE Stop: 04/06/17 07:46 Last Admin: 04/06/17 06:57 Dose: 200 mls/hr Piperacillin/Tazobactam/ (Dextrose 3.375 gm/ Premix) 50 mls @ 100 mls/hr IV Q6H [facility] Last Admin: 04/10/17 01:55 Dose: 100 mls/hr Clindamycin Phosphate 900 mg/ (Sodium Chloride) 106 mls @ 200 mls/hr IV Q8H [facility] Last Admin: 04/10/17 06:51 Dose: 200 mls/hr Erythromycin Lactobionate 125 (mg/ Sodium Chloride) 100 mls @ 100 mls/hr IV Q8H [facility] Stop: 04/11/17 12:00 Last Admin: 04/11/17 10:19 Dose: 100 mls/hr Dextrose/Lactated Ringer's (Dextrose 5%-Lactated Ringers) 1,000 mls @ 150 mls/ hr IV ASDIRECTED [facility] Last Admin: 04/08/17 01:12 Dose: 150 mls/hr Dextrose/Lactated Ringer's (Dextrose 5%-Lactated Ringers) 1,000 mls @ 80 mls/ hr IV ASDIRECTED [facility] Last Infusion: 04/12/17 04:59 Dose: 80 mls/hr Magnesium Sulfate 2 gm/ Premix 50 mls @ 25 mls/hr IV Q6H [facility] Stop: 04/12/17 05:59 Potassium Chloride 20 meq/Lidocaine HCl 2 ml/ Sodium Chloride 112 mls @ 56 mls/ hr IV Q2H [facility] Stop: 04/09/17 15:59 Last Admin: 04/09/17 15:13 Dose: 56 mls/hr Magnesium Sulfate 2 gm/ Sodium (Chloride) 54 mls @ 27 mls/hr IV Q6H [facility] Stop: 04/12/17 05:59 Last Admin: 04/12/17 03:29 Dose: 27 mls/hr Sodium Chloride (Normal Saline) 78 mls @ 3.8 mls/sec IV ASDIRECTED STA Stop: 04/12/17 08:08 Last Admin: 04/12/17 08:22 Dose: 3.8 mls/sec Potassium Chloride 20 meq/Lidocaine HCl 2 ml/ Sodium Chloride 112 mls @ 56 mls/ hr IV Q2H [facility] Stop: 04/12/17 14:59 Last Admin: 04/12/17 15:35 Dose: 56 mls/hr Ibuprofen (Motrin) 600 mg PO QID [facility] Last Admin: 04/07/17 05:33 Dose: 600 mg Iopamidol (Isovue-300 (61%)) 124 ml IV . DIRECTED STA Stop: 04/12/17 08:08 Last Admin: 04/12/17 08:21 Dose: 150 ml Ketorolac Tromethamine (Toradol) Confirm Administered Dose 60 mg .ROUTE .STK- MED ONE Stop: 04/04/17 12:52 Ketorolac Tromethamine (Toradol) 60 mg IM ONETIME ONE Stop: 04/11/17 08:16 Last Admin: 04/11/17 08:01 Dose: 60 mg Ketorolac Tromethamine (Toradol) 60 mg IM ONETIME ONE Stop: 04/12/17 08:01 Last Admin: 04/12/17 07:59 Dose: 60 mg Lidocaine/Epinephrine (Xylocaine 1% With Epinephrine 1:100,000) Confirm Administered Dose 50 ml .ROUTE .STK-MED ONE Stop: 04/06/17 05:26 Last Admin: 04/06/17 06:41 Dose: 10 ml Lidocaine/Epinephrine (Xylocaine 1% With Epinephrine 1:100,000) 0 ml INJECT ONETIME ONE Stop: 04/12/17 11:41 Last Admin: 04/12/17 13:19 Dose: 5 ml Meperidine HCl (Demerol) 100 mg IM ONETIME ONE Stop: 04/04/17 14:47 Last Admin: 04/04/17 14:56 Dose: 100 mg Meperidine HCl (Demerol) Confirm Administered Dose 100 mg .ROUTE .STK-MED ONE Stop: 04/04/17 14:49 Last Admin: 04/06/17 16:32 Dose: Not Given Meperidine HCl (Demerol) 75 mg IM ASDIRECTED PRN PRN Reason: PAIN Stop: 04/05/17 06:00 Meropenem (Merrem) Confirm Administered Dose 500 mg .ROUTE .STK-MED ONE Stop: 04/04/17 13:35 Last Admin: 04/04/17 14:06 Dose: 500 mg Meropenem (Merrem) Confirm Administered Dose 500 mg .ROUTE .STK-MED ONE Stop: 04/06/17 05:26 Last Admin: 04/06/17 06:45 Dose: 500 mg Metoprolol Succinate (Toprol Xl) 50 mg PO DAILY [facility] Last Admin: 04/12/17 09:01 Dose: 50 mg Metoprolol Tartrate (Lopressor) 5 mg IV Q6HR [facility] Last Admin: 04/13/17 10:55 Dose: Not Given Midazolam HCl (Versed 1 Mg/Ml) Confirm Administered Dose 2 mg .ROUTE .STK-MED ONE Stop: 04/03/17 07:59 Naloxone HCl (Narcan) 0.1 mg IVPUSH Q5M PRN PRN Reason: RESP RATE LESS THAN 6/MINUTE Last Admin: 04/04/17 15:44 Dose: 0.2 mg Naloxone HCl (Narcan) Confirm Administered Dose 0.4 mg .ROUTE .STK-MED ONE Stop: 04/04/17 11:40 Naloxone HCl (Narcan) Confirm Administered Dose 0.4 mg .ROUTE .STK-MED ONE Stop: 04/04/17 14:41 Naloxone HCl (Narcan) 0.4 mg IV ASDIRECTED PRN PRN Reason: ITCHING Last Admin: 04/05/17 04:30 Dose: 0.4 mg Naloxone HCl (Narcan) 0.1 mg IV ASDIRECTED PRN PRN Reason: decreased respiratory rate Neostigmine Methylsulfate (Neostigmine) Confirm Administered Dose 5 mg .ROUTE .STK-MED ONE Stop: 04/04/17 11:29 Ondansetron HCl (Zofran) Confirm Administered Dose 4 mg .ROUTE .STK-MED ONE Stop: 04/04/17 11:29 Potassium Chloride (Klor-Con M20) 40 meq PO ONETIME ONE Stop: 04/10/17 12:31 Last Admin: 04/10/17 13:56 Dose: 40 meq Propofol (Diprivan 20 Ml) Confirm Administered Dose 200 mg .ROUTE .STK-MED ONE Stop: 04/03/17 07:58 Propofol (Diprivan 20 Ml) Confirm Administered Dose 200 mg .ROUTE .STK-MED ONE Stop: 04/03/17 08:40 Propofol (Diprivan 20 Ml) Confirm Administered Dose 200 mg .ROUTE .STK-MED ONE Stop: 04/04/17 11:29 Propofol (Diprivan 20 Ml) Confirm Administered Dose 200 mg .ROUTE .STK-MED ONE Stop: 04/06/17 06:07 Rocuronium [place] (Zemuron) Confirm Administered Dose 50 mg .ROUTE .STK-MED ONE Stop: 04/04/17 11:29 Scopolamine (Transderm-Scop) Confirm Administered Dose 1.5 mg .ROUTE .STK-MED ONE Stop: 04/04/17 14:12 Senna (Senna) 17.2 mg PO DAILY [facility] Last Admin: 04/11/17 08:58 Dose: 17.2 mg Succinylcholine Chloride (Quelicin) Confirm Administered Dose 200 mg .ROUTE .STK -MED ONE Stop: 04/04/17 11:29 Tamsulosin HCl (Flomax) 0.4 mg PO BEDTIME [facility] Last Admin: 04/06/17 20:30 Dose: 0.4 mg Tramadol HCl (Ultram) 50 mg PO QID [facility] Last Admin: 04/07/17 05:32 Dose: 50 mg - Exam General: Alert, Oriented HEENT: Pupils Equal, Pupils Reactive, EOMI, Mucous Membr. Moist/[place] Neck: Supple Lungs: Clear to Auscultation, Normal Respiratory Effort Cardiovascular: Regular Rate, Regular Rhythm Extremities: Normal Inspection, Normal Range of Motion, Non-Tender, No Pedal Edema, Normal Capillary Refill Peripheral Pulses: 1+: Radial (L), Radial (R) Psy/Mental Status: Alert, Normal Affect, Normal Mood - Problem List Review Problem List Initiated/Reviewed/Updated: Yes - My Orders Last 24 Hours: My Active Orders 04/13/17 13:30 Metoprolol Succinate [Toprol XL] 50 mg PO DAILY - Plan Plan:: Assessment?Plan: #1. Hypertension. His pressure is good control this morning. He refused to take his IV beta desmond yesterday. Will change back to PO Meds.
[2017-04-13] MEDS: Metoprolol Succinate 50 MG Tab.ER PO SCH (15:14)
[2017-04-13] MEDS: Sennosides 8.6 MG Tab PO SCH (20:54)
[2017-04-13] MEDS: amLODIPine 5 MG Tab PO SCH (20:54)
[2017-04-13] MEDS: LORazepam 2 MG/ML MDV IVPUSH PRN (20:58)
[2017-04-14] MEDS: Acetaminophen/HYDROcodone 325-5 MG Tab PO PRN ×3 (01:12→19:34)
[2017-04-14] MEDS: Clindamycin Phosphate 900 MG in Sodium Chloride 0.9% 100 ML IV SCH ×2 (02:46→09:50)
[2017-04-14] MEDS: Metoclopramide 10 MG/2 ML SDV IVPUSH SCH ×3 (02:46→15:05)
[2017-04-14] MEDS: Piperacillin/Tazobactam/Dext 3.375 GM in Premix Bag 1 BAG IV SCH ×3 (04:40→15:05)
[2017-04-14] MEDS: Albuterol/Ipratropium 3.0-0.5 MG/3 ML Neb Soln INH SCH ×4 (07:21→20:32)
--- NOTE | 2017-04-14 08:02 | PN ---
DATE OF SERVICE: 04/14/2017 SUBJECTIVE: Rakesh was changed to oral pain medication. He is tolerating that well. His NG now has been clamped for over 24 hours. He did have it unclamped around noon. He thought he drank too much. The NG was hooked up to suction for about an hour. He got 100 mL out. Oral intake, 2400. Urine output 3325. He has been afebrile running a temp now of 99.3. REVIEW OF SYSTEMS: Remainder of review of systems negative for any pertinent positives and negatives. OBJECTIVE: GENERAL: Rakesh Portillo is a 56-year-old male. VITAL SIGNS: TPR 99.3, 78, 16. O2 sats by pulse oximetry is 92%. Last blood pressure was 143/86. HEENT: Negative. NECK: Supple. HEART: Regular rate and rhythm. LUNGS: Clear. ABDOMEN: Softer. Abdominal binder is on. Dressing is dry and intact. EXTREMITIES: Without peripheral edema. ASSESSMENT: 1. Postoperative ileus, resolving. 2. Small seroma drained by Deejay Valdez MD on 04/12/2017. 3. Hypertension. 4. Delayed primary closure of open abdominal incision on 04/06/2017. 5. Exploratory laparotomy with right colectomy and mobilization of omentum into pelvis to limit recurrent adhesive formation. 6. 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 Date of surgery, 04/04/2017. Surgeon, Dr. Gabriele Johnson. 7. Hypokalemia, resolved. PLAN: 1. Full liquid diet. 2. Saline lock IV. 3. If tolerating full liquid diet, we will discontinue NG later this afternoon. 4. Good pulmonary toilet. 5. We will evaluate p.r.n. or in a.m. Josephine Horta PA-C /[id number]
[2017-04-14] MEDS: Enoxaparin 40 MG/0.4 ML Syringe SUBCUT SCH (08:58)
[2017-04-14] MEDS: Metoprolol Succinate 50 MG Tab.ER PO SCH (08:59)
[2017-04-14] MEDS: Doxazosin 4 MG Tab PO SCH (08:59)
[2017-04-14] MEDS: VERIFY SCOP PATCH TOP SCH (09:00)
[2017-04-14] MEDS: Dextrose 5%-Lactated Ringers 1,000 ML IV SCH (09:05)
--- NOTE | 2017-04-14 09:11 | CR ---
Abdomen 2V AP Flat Upright INDICATION: post op ileus FINDINGS: Enteric tube in place with sidehole just beyond the GE junction. Moderately dilated loops o f small bowel in the upper abdomen. Small amount of gas throughout the colon and rectum. Small amount of free air beneath the right hemidiaphragm, likely postoperative. Postoperative changes in the abdo men. Findings suggest postoperative ileus.
--- NOTE | 2017-04-14 09:16 | PCM.PN ---
- General Info Date of Service: 04/14/17 Functional Status: Reports: Pain Controlled - Review of Systems General: Reports: No Symptoms HEENT: Reports: No Symptoms Pulmonary: Reports: No Symptoms Cardiovascular: Reports: No Symptoms Gastrointestinal: Reports: No Symptoms Genitourinary: Reports: No Symptoms Musculoskeletal: Reports: No Symptoms Skin: Reports: No Symptoms Psychiatric: Reports: Anxiety - Patient Data Vitals - Most Recent: Last Vital Signs Temp 98.4 F 04/14/17 07:00 Pulse 88 04/14/17 08:59 Resp 18 04/14/17 07:00 BP 134/80 04/14/17 08:59 Pulse Ox 96 04/14/17 07:00 Weight - Most Recent: 182 lb 15.986 oz I&O - Last 24 Hours: Intake & Output 04/13/17 04/14/17 04/14/17 22:59 06:59 14:59 Intake Total 1632 1530 50 Output Total 1000 1800 Balance 632 -270 50 Lab Results Last 24 Hours: Laboratory Results - last 24 hr 04/14/17 04/14/17 Range/Units 04:23 04:23 WBC 7.6 (4.5-11.0) K/uL RBC 4.02 L (4.30-5.90) M/uL Hgb 12.6 (12.0-15.0) g/dL Hct 36.9 L (40.0-54.0) % MCV 92 (80-98) fL MCH 31 (27-31) pg MCHC 34 (32-36) % Plt Count 346 (150-400) K/uL Sodium 138 L (140-148) mmol/L Potassium 3.7 (3.6-5.2) mmol/L Chloride 103 (100-108) mmol/L Carbon Dioxide 27 (21-32) mmol/L Anion Gap 11.7 (5.0-14.0) mmol/L BUN 4 L (7-18) mg/dL Creatinine 1.0 (0.8-1.3) mg/dL Est Cr Clr Drug Dosing 87.41 mL/min Estimated GFR (MDRD) > 60 (>60) Glucose 113 H (74-106) mg/dL Calcium 8.2 L (8.5-10.1) mg/dL Phosphorus 4.0 (2.5-4.9) mg/dL Magnesium 1.7 L (1.8-2.4) mg/dL Total Bilirubin 0.4 (0.2-1.0) mg/dL AST 32 (15-37) U/L ALT 36 (12-78) U/L Alkaline Phosphatase 94 (46-116) U/L Total Protein 6.5 (6.4-8.2) g/dL Albumin 2.6 L (3.4-5.0) g/dL Globulin 3.9 H (2.3-3.5) g/dL Albumin/Globulin Ratio 0.7 L (1.2-2.2) Rainer Results Last 24 Hours: Microbiology 04/12/17 11:25 Gram Stain - Final Other - Wound-Deep Wound Culture - Preliminary NO GROWTH AFTER 2 DAYS Med Orders - Current: Current Medications Acetaminophen/Caffeine (Excedrin Tension Headache) 2 tab PO Q6H PRN PRN Reason: Headache Hydrocodone Bitart/Acetaminophen (Mclean 325-5 Mg) 1 - 2 tab PO Q4H PRN PRN Reason: Pain Last Admin: 04/14/17 01:12 Dose: 2 tab Albuterol/Ipratropium (Duoneb 3.0-0.5 Mg/3 Ml) 3 ml INH QIDRT [facility] Last Admin: 04/14/17 07:21 Dose: 3 ml Albuterol/Ipratropium (Duoneb 3.0-0.5 Mg/3 Ml) 3 ml INH ASDIRECTED PRN PRN Reason: Shortness of Breath Amlodipine Besylate (Norvasc) 5 mg PO DAILY@2100 [facility] Last Admin: 04/13/17 20:54 Dose: 5 mg Doxazosin Mesylate (Cardura) 4 mg PO DAILY [facility] Last Admin: 04/14/17 08:59 Dose: 4 mg Enoxaparin Sodium (Lovenox) 40 mg SUBCUT DAILY [facility] Last Admin: 04/14/17 08:58 Dose: 40 mg Hydromorphone HCl (Dilaudid Algology Teacher 15 Mg In Ns 30 Ml) 0 mg IV ASDIRECTED PRN; Protocol PRN Reason: PAIN Last Admin: 04/13/17 06:45 Dose: 15 mg Hydroxyzine HCl (Vistaril) 50 mg IM Q4H PRN PRN Reason: Other Dextrose/Lactated Ringer's (Dextrose 5%-Lactated Ringers) 1,000 mls @ 125 mls/ hr IV ASDIRECTED [facility] Last Admin: 04/14/17 09:05 Dose: 125 mls/hr Piperacillin/Tazobactam/ (Dextrose 3.375 gm/ Premix) 50 mls @ 100 mls/hr IV Q6H [facility] Last Admin: 04/14/17 09:02 Dose: 100 mls/hr Clindamycin Phosphate 900 mg/ (Sodium Chloride) 106 mls @ 200 mls/hr IV Q8H [facility] Last Admin: 04/14/17 02:46 Dose: 200 mls/hr Labetalol HCl (Normodyne) 0 mg IVPUSH Q1H PRN; Protocol PRN Reason: Hypertension Last Admin: 04/09/17 20:46 Dose: 5 mg Lorazepam (Ativan) 0.5 - 1 mg PO Q4H PRN PRN Reason: Anxiety Last Admin: 04/13/17 05:08 Dose: 1 mg Lorazepam (Ativan) 1 mg IVPUSH Q4H PRN PRN Reason: Anxiety Last Admin: 04/13/17 20:58 Dose: 1 mg Metoclopramide HCl (Reglan) 10 mg IVPUSH Q6H [facility] Last Admin: 04/14/17 09:00 Dose: 10 mg Metoprolol Succinate (Toprol Xl) 50 mg PO DAILY [facility] Last Admin: 04/14/17 08:59 Dose: 50 mg Naloxone HCl (Narcan) 0.1 mg IV ASDIRECTED PRN PRN Reason: decreased respiratory rate Verify Scop Patch 0 each TOP DAILY [facility] Last Admin: 04/14/17 09:00 Dose: Not Given Ondansetron HCl (Zofran) 4 mg IV Q4H PRN PRN Reason: N/V Last Admin: 04/11/17 20:53 Dose: 4 mg Phenol (Phenaseptic Liquid) 1 ml MUCMEM Q1H PRN PRN Reason: Sore Throat Last Admin: 04/08/17 01:08 Dose: 1 spray Scopolamine (Transderm-Scop) 1.5 mg TOP Q72H [facility] Last Admin: 04/13/17 08:15 Dose: 1.5 mg Senna (Senna) 17.2 mg PO BEDTIME [facility] Last Admin: 04/13/17 20:54 Dose: 17.2 mg Discontinued Medications Acetaminophen (Tylenol Extra Strength) 1,000 mg PO ONETIME ONE Stop: 04/04/17 10:31 Last Admin: 04/04/17 11:20 Dose: 1,000 mg Acetaminophen (Tylenol) 650 mg PO Q6H [facility] Last Admin: 04/07/17 05:32 Dose: 650 mg Albuterol/Ipratropium (Duoneb 3.0-0.5 Mg/3 Ml) 3 ml INH ONCALL ONE Stop: 04/04/17 12:31 Last Admin: 04/04/17 12:13 Dose: 3 ml Alvimopan (Entereg) 12 mg PO ONETIME ONE Stop: 04/04/17 10:31 Last Admin: 04/04/17 11:20 Dose: 12 mg Alvimopan (Entereg) 12 mg PO Q12H [facility] Stop: 04/11/17 10:01 Last Admin: 04/06/17 21:24 Dose: 12 mg Bacitracin (Bacitracin Oint 1 Gm) Confirm Administered Dose 1 dose .ROUTE .STK- MED ONE Stop: 04/12/17 11:22 Last Admin: 04/12/17 11:29 Dose: 1 dose Bacitracin (Bacitracin Oint 1 Gm) 1 dose TOP ONETIME ONE Stop: 04/12/17 11:46 Last Admin: 04/12/17 13:19 Dose: 1 dose Bisacodyl (Dulcolax) 10 mg PO BID [facility] Last Admin: 04/06/17 20:30 Dose: 10 mg Bisacodyl (Dulcolax) 10 mg RECTAL ONETIME ONE Stop: 04/07/17 18:01 Last Admin: 04/07/17 17:00 Dose: 10 mg Bupivacaine HCl (Marcaine 0.5%) Confirm Administered Dose 30 ml .ROUTE .STK-MED ONE Stop: 04/04/17 13:03 Bupivacaine HCl (Marcaine 0.5%) Confirm Administered Dose 50 ml .ROUTE .STK-MED ONE Stop: 04/06/17 05:26 Last Admin: 04/06/17 06:41 Dose: 10 ml Celecoxib (Celebrex) 200 mg PO ONETIME ONE Stop: 04/04/17 10:31 Last Admin: 04/04/17 11:19 Dose: 200 mg Dexamethasone (Dexamethasone) Confirm Administered Dose 4 mg .ROUTE .STK-MED ONE Stop: 04/04/17 11:29 Diphenhydramine HCl (Benadryl) 25 mg IVPUSH Q6H PRN PRN Reason: ITCHING Last Admin: 04/05/17 15:40 Dose: 25 mg Doxazosin Mesylate (Cardura) 2 mg PO DAILY [facility] Last Admin: 04/11/17 08:57 Dose: 2 mg Fentanyl (Sublimaze) Confirm Administered Dose 100 mcg .ROUTE .STK-MED ONE Stop: 04/03/17 07:59 Fentanyl (Sublimaze) Confirm Administered Dose 100 mcg .ROUTE .STK-MED ONE Stop: 04/04/17 12:54 Fentanyl (Sublimaze) Confirm Administered Dose 100 mcg .ROUTE .STK-MED ONE Stop: 04/04/17 13:44 Fentanyl (Sublimaze) Confirm Administered Dose 100 mcg .ROUTE .STK-MED ONE Stop: 04/06/17 06:08 Fentanyl Citrate (Fentanyl) Confirm Administered Dose 500 mcg .ROUTE .STK-MED ONE Stop: 04/04/17 11:29 Furosemide (Lasix) 20 mg IVPUSH ONETIME ONE Stop: 04/06/17 14:01 Last Admin: 04/06/17 13:52 Dose: 20 mg Furosemide (Lasix) 20 mg IVPUSH ONETIME ONE Stop: 04/08/17 21:05 Last Admin: 04/08/17 21:27 Dose: 20 mg Furosemide (Lasix) 20 mg IVPUSH ONETIME ONE Stop: 04/09/17 09:01 Last Admin: 04/09/17 09:42 Dose: 20 mg Glycopyrrolate (Robinul) Confirm Administered Dose 1 mg .ROUTE .STK-MED ONE Stop: 04/04/17 11:29 Hydromorphone HCl (Dilaudid Algology Teacher 15 Mg In Ns 30 Ml) 0 mg IV ASDIRECTED PRN; 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 Last Admin: 04/10/17 03:26 Dose: 15 mg Hydromorphone HCl (Dilaudid Algology Teacher 15 Mg In Ns 30 Ml) 15 mg IV ASDIRECTED [facility] PRN Reason: Protocol Last Admin: 04/12/17 00:19 Dose: 15 mg Hydroxyzine HCl (Vistaril) 50 mg IM ONETIME ONE Stop: 04/04/17 14:48 Last Admin: 04/04/17 14:55 Dose: 50 mg Hydroxyzine HCl (Vistaril) Confirm Administered Dose 100 mg .ROUTE .STK-MED ONE Stop: 04/04/17 14:49 Last Admin: 04/06/17 16:32 Dose: Not Given Sodium Chloride (Normal Saline) 1,000 mls @ 100 mls/hr IV ASDIRECTED [facility] Last Admin: 04/03/17 07:55 Dose: 100 mls/hr Dextrose/Lactated Ringer's (Dextrose 5%-Lactated Ringers) 1,000 mls @ 100 mls/ hr IV ASDIRECTED [facility] Last Infusion: 04/04/17 15:44 Dose: Infused Cefoxitin Sodium 2 gm/ Sodium (Chloride) 50 mls @ 100 mls/hr IV ONCALL ONE Stop: 04/04/17 12:59 Last Admin: 04/04/17 13:38 Dose: 100 mls/hr Fentanyl 2,500 mcg/ Sodium (Chloride) 250 mls @ 0 mls/hr EPIDUR TITRATE [facility]; Titrate PRN Reason: Protocol Last Admin: 04/06/17 04:57 Dose: 12 mls/hr, 12 mls/hr Sodium Chloride (Normal Saline) Confirm Administered Dose 20 mls @ as directed .ROUTE .STK-MED ONE Stop: 04/04/17 13:03 Acetaminophen (Ofirmev) Confirm Administered Dose 100 mls @ as directed IV .STK- MED ONE Stop: 04/04/17 13:10 Lactated Ringer's (Ringers, Lactated) Confirm Administered Dose 1,000 mls @ as directed .ROUTE .STK-MED ONE Stop: 04/04/17 13:21 Naloxone HCl 0.4 mg/ Dextrose/ (Lactated Ringer's) 1,001 mls @ 150 mls/hr IV ASDIRECTED [facility] Dextrose/Lactated Ringer's (Dextrose 5%-Lactated Ringers) 1,000 mls @ 175 mls/ hr IV ASDIRECTED [facility] Last Admin: 04/04/17 16:46 Dose: 175 mls/hr Cefoxitin Sodium 2 gm/ Sodium (Chloride) 50 mls @ 100 mls/hr IV Q6H [facility] Last Admin: 04/06/17 06:00 Dose: 100 mls/hr Acetaminophen 1,000 mg/ Premix 100 mls @ 400 mls/hr IV Q6H [facility] Stop: 04/05/17 12:44 Last Admin: 04/05/17 11:58 Dose: 400 mls/hr Naloxone HCl 0.4 mg/ Dextrose/ (Lactated Ringer's) 1,001 mls @ 175 mls/hr IV ASDIRECTED [facility] Last Admin: 04/05/17 04:28 Dose: 175 mls/hr Dextrose/Lactated Ringer's (Dextrose 5%-Lactated Ringers) 1,000 mls @ 100 mls/ hr IV ASDIRECTED [facility] Last Admin: 04/07/17 05:34 Dose: 100 mls/hr Naloxone HCl 0.4 mg/ Dextrose/ (Lactated Ringer's) 1,001 mls @ 100 mls/hr IV ASDIRECTED [facility] Clindamycin Phosphate 900 mg/ (Sodium Chloride) 106 mls @ 200 mls/hr IV ONETIME ONE Stop: 04/06/17 07:46 Last Admin: 04/06/17 06:57 Dose: 200 mls/hr Piperacillin/Tazobactam/ (Dextrose 3.375 gm/ Premix) 50 mls @ 100 mls/hr IV Q6H [facility] Last Admin: 04/10/17 01:55 Dose: 100 mls/hr Clindamycin Phosphate 900 mg/ (Sodium Chloride) 106 mls @ 200 mls/hr IV Q8H [facility] Last Admin: 04/10/17 06:51 Dose: 200 mls/hr Erythromycin Lactobionate 125 (mg/ Sodium Chloride) 100 mls @ 100 mls/hr IV Q8H [facility] Stop: 04/11/17 12:00 Last Admin: 04/11/17 10:19 Dose: 100 mls/hr Dextrose/Lactated Ringer's (Dextrose 5%-Lactated Ringers) 1,000 mls @ 150 mls/ hr IV ASDIRECTED [facility] Last Admin: 04/08/17 01:12 Dose: 150 mls/hr Dextrose/Lactated Ringer's (Dextrose 5%-Lactated Ringers) 1,000 mls @ 80 mls/ hr IV ASDIRECTED [facility] Last Infusion: 04/12/17 04:59 Dose: 80 mls/hr Magnesium Sulfate 2 gm/ Premix 50 mls @ 25 mls/hr IV Q6H [facility] Stop: 04/12/17 05:59 Potassium Chloride 20 meq/Lidocaine HCl 2 ml/ Sodium Chloride 112 mls @ 56 mls/ hr IV Q2H [facility] Stop: 04/09/17 15:59 Last Admin: 04/09/17 15:13 Dose: 56 mls/hr Magnesium Sulfate 2 gm/ Sodium (Chloride) 54 mls @ 27 mls/hr IV Q6H [facility] Stop: 04/12/17 05:59 Last Admin: 04/12/17 03:29 Dose: 27 mls/hr Sodium Chloride (Normal Saline) 78 mls @ 3.8 mls/sec IV ASDIRECTED [facility] Stop: 04/12/17 08:08 Last Admin: 04/12/17 08:22 Dose: 3.8 mls/sec Potassium Chloride 20 meq/Lidocaine HCl 2 ml/ Sodium Chloride 112 mls @ 56 mls/ hr IV Q2H [facility] Stop: 04/12/17 14:59 Last Admin: 04/12/17 15:35 Dose: 56 mls/hr Potassium Chloride 20 meq/Lidocaine HCl 2 ml/ Sodium Chloride 112 mls @ 56 mls/ hr IV Q2H [facility] Stop: 04/13/17 13:59 Last Admin: 04/13/17 13:53 Dose: 56 mls/hr Ibuprofen (Motrin) 600 mg PO QID [facility] Last Admin: 04/07/17 05:33 Dose: 600 mg Iopamidol (Isovue-300 (61%)) 124 ml IV . DIRECTED [facility] Stop: 04/12/17 08:08 Last Admin: 04/12/17 08:21 Dose: 150 ml Ketorolac Tromethamine (Toradol) Confirm Administered Dose 60 mg .ROUTE .STK- MED ONE Stop: 04/04/17 12:52 Ketorolac Tromethamine (Toradol) 60 mg IM ONETIME ONE Stop: 04/11/17 08:16 Last Admin: 04/11/17 08:01 Dose: 60 mg Ketorolac Tromethamine (Toradol) 60 mg IM ONETIME ONE Stop: 04/12/17 08:01 Last Admin: 04/12/17 07:59 Dose: 60 mg Lidocaine/Epinephrine (Xylocaine 1% With Epinephrine 1:100,000) Confirm Administered Dose 50 ml .ROUTE .STK-MED ONE Stop: 04/06/17 05:26 Last Admin: 04/06/17 06:41 Dose: 10 ml Lidocaine/Epinephrine (Xylocaine 1% With Epinephrine 1:100,000) 0 ml INJECT ONETIME ONE Stop: 04/12/17 11:41 Last Admin: 04/12/17 13:19 Dose: 5 ml Meperidine HCl (Demerol) 100 mg IM ONETIME ONE Stop: 04/04/17 14:47 Last Admin: 04/04/17 14:56 Dose: 100 mg Meperidine HCl (Demerol) Confirm Administered Dose 100 mg .ROUTE .STK-MED ONE Stop: 04/04/17 14:49 Last Admin: 04/06/17 16:32 Dose: Not Given Meperidine HCl (Demerol) 75 mg IM ASDIRECTED PRN PRN Reason: PAIN Stop: 04/05/17 06:00 Meropenem (Merrem) Confirm Administered Dose 500 mg .ROUTE .STK-MED ONE Stop: 04/04/17 13:35 Last Admin: 04/04/17 14:06 Dose: 500 mg Meropenem (Merrem) Confirm Administered Dose 500 mg .ROUTE .STK-MED ONE Stop: 04/06/17 05:26 Last Admin: 04/06/17 06:45 Dose: 500 mg Metoprolol Succinate (Toprol Xl) 50 mg PO DAILY [facility] Last Admin: 04/12/17 09:01 Dose: 50 mg Metoprolol Tartrate (Lopressor) 5 mg IV Q6HR [facility] Last Admin: 04/13/17 10:55 Dose: Not Given Midazolam HCl (Versed 1 Mg/Ml) Confirm Administered Dose 2 mg .ROUTE .STK-MED ONE Stop: 04/03/17 07:59 Naloxone HCl (Narcan) 0.1 mg IVPUSH Q5M PRN PRN Reason: RESP RATE LESS THAN 6/MINUTE Last Admin: 04/04/17 15:44 Dose: 0.2 mg Naloxone HCl (Narcan) Confirm Administered Dose 0.4 mg .ROUTE .STK-MED ONE Stop: 04/04/17 11:40 Naloxone HCl (Narcan) Confirm Administered Dose 0.4 mg .ROUTE .STK-MED ONE Stop: 04/04/17 14:41 Naloxone HCl (Narcan) 0.4 mg IV ASDIRECTED PRN PRN Reason: ITCHING Last Admin: 04/05/17 04:30 Dose: 0.4 mg Naloxone HCl (Narcan) 0.1 mg IV ASDIRECTED PRN PRN Reason: decreased respiratory rate Neostigmine Methylsulfate (Neostigmine) Confirm Administered Dose 5 mg .ROUTE .[facility] ONE Stop: 04/04/17 11:29 Ondansetron HCl (Zofran) Confirm Administered Dose 4 mg .ROUTE .[facility] ONE Stop: 04/04/17 11:29 Potassium Chloride (Klor-Con M20) 40 meq PO ONETIME ONE Stop: 04/10/17 12:31 Last Admin: 04/10/17 13:56 Dose: 40 meq Propofol (Diprivan 20 Ml) Confirm Administered Dose 200 mg .ROUTE .[facility] ONE Stop: 04/03/17 07:58 Propofol (Diprivan 20 Ml) Confirm Administered Dose 200 mg .ROUTE .[facility] ONE Stop: 04/03/17 08:40 Propofol (Diprivan 20 Ml) Confirm Administered Dose 200 mg .ROUTE .[facility] ONE Stop: 04/04/17 11:29 Propofol (Diprivan 20 Ml) Confirm Administered Dose 200 mg .ROUTE .[facility] ONE Stop: 04/06/17 06:07 Rocuronium [place] (Zemuron) Confirm Administered Dose 50 mg .ROUTE .[facility] ONE Stop: 04/04/17 11:29 Scopolamine (Transderm-Scop) Confirm Administered Dose 1.5 mg .ROUTE .[facility] ONE Stop: 04/04/17 14:12 Senna (Senna) 17.2 mg PO DAILY [facility] Last Admin: 04/11/17 08:58 Dose: 17.2 mg Succinylcholine Chloride (Quelicin) Confirm Administered Dose 200 mg .ROUTE .[facility] ONE Stop: 04/04/17 11:29 Tamsulosin HCl (Flomax) 0.4 mg PO BEDTIME [facility] Last Admin: 04/06/17 20:30 Dose: 0.4 mg Tramadol HCl (Ultram) 50 mg PO QID [facility] Last Admin: 04/07/17 05:32 Dose: 50 mg - Exam General: Alert, Oriented HEENT: Pupils Equal, Pupils Reactive, EOMI, Mucous Membr. Moist/[place] Lungs: Clear to Auscultation, Normal Respiratory Effort Cardiovascular: Regular Rate, Regular Rhythm Extremities: Normal Inspection, Normal Range of Motion, Non-Tender, No Pedal Edema, Normal Capillary Refill Peripheral Pulses: 1+: Radial (L), Radial (R) Psy/Mental Status: Anxious - Problem List Review Problem List Initiated/Reviewed/Updated: Yes - My Orders Last 24 Hours: My Active Orders 04/13/17 13:30 Metoprolol Succinate [Toprol XL] 50 mg PO DAILY - Plan Plan:: Assessment?Plan: #1. Hypertension. His pressure is good control this morning. K is normal at 3.7.
--- NOTE | 2017-04-14 09:47 | OR ---
DATE OF PROCEDURE: 04/12/2017 PROCEDURE PERFORMED: Ultrasound-guided aspiration of fluid collection. COMPLICATIONS: None. PSYCHOLOGICAL AIDE: None. ANESTHESIA: Local. INDICATIONS: A pleasant gentleman who has had a surgery performed by Dr. Johnson, which was a hemicolectomy. The patient had a 2-cm fluid collection concerning for infection or seroma. Therefore, this required aspiration. We discussed risks, benefits, alternatives, and limitations including, but not limited to infection, bleeding, and injury to abdominal structures. PROCEDURE IN DETAIL: The patient was placed in supine position. The abdomen was prepped and draped. Using 11 megahertz ultrasound probe, the fluid collection was readily identified. A needle was introduced and approximately 5 mL of fluid was able to be aspirated. This was then sent for culture. No other gross abnormalities. Deejay Valdez MD /[id number]
[2017-04-14] MEDS: LORazepam 0.5 MG Tab PO PRN ×2 (09:48→22:11)
--- NOTE | 2017-04-14 09:51 | CR ---
Abdomen 2V AP Flat Upright INDICATION: post op ileus FINDINGS: Comparison 04/13/2017. Enteric tube with tip in the stomach and sidehole at the GE junction. Overall stable dilatation of small bowel loops in midabdomen. Scattered gas in the colon. Postoperat carin changes in the abdomen. Free air has resolved.
[2017-04-14] MEDS: Metoclopramide 10 MG Tab PO PRN (19:22)
[2017-04-14] MEDS: Sennosides 8.6 MG Tab PO SCH (20:32)
[2017-04-14] MEDS: amLODIPine 5 MG Tab PO SCH (20:33)
[2017-04-15] MEDS: Acetaminophen/HYDROcodone 325-5 MG Tab PO PRN ×6 (00:02→23:35)
[2017-04-15] MEDS: Albuterol/Ipratropium 3.0-0.5 MG/3 ML Neb Soln INH SCH ×4 (07:22→19:59)
[2017-04-15] MEDS: LORazepam 0.5 MG Tab PO PRN ×3 (08:34→23:36)
[2017-04-15] MEDS: Metoclopramide 10 MG Tab PO PRN ×2 (08:34→19:57)
[2017-04-15] MEDS: Doxazosin 4 MG Tab PO SCH (08:34)
[2017-04-15] MEDS: Enoxaparin 40 MG/0.4 ML Syringe SUBCUT SCH (08:36)
[2017-04-15] MEDS: Metoprolol Succinate 50 MG Tab.ER PO SCH (08:37)
[2017-04-15] MEDS: VERIFY SCOP PATCH TOP SCH (08:37)
--- NOTE | 2017-04-15 08:51 | CR ---
Abdomen 2V AP Flat Upright INDICATION: post op ileus FINDINGS: Comparison 04/14/2017. Enteric tube has been removed. Mild interval improvement of dilated l oops of small bowel in the midabdomen. Mild increase in gas in the colon.
--- NOTE | 2017-04-15 09:22 | PCM.PN ---
- General Info Date of Service: 04/15/17 Functional Status: Reports: Pain Controlled - Review of Systems General: Reports: No Symptoms Pulmonary: Reports: No Symptoms Cardiovascular: Reports: No Symptoms - Patient Data Vitals - Most Recent: Last Vital Signs Temp 97.7 F 04/15/17 02:15 Pulse 97 04/15/17 08:37 Resp 18 04/15/17 02:15 BP 129/68 04/15/17 08:37 Pulse Ox 95 04/15/17 02:15 Weight - Most Recent: 173 lb 9.6 oz I&O - Last 24 Hours: Intake & Output 04/14/17 04/15/17 04/15/17 22:59 06:59 14:59 Intake Total 1520 Balance 1520 Rainer Results Last 24 Hours: Microbiology 04/12/17 11:25 Gram Stain - Final Other - Wound-Deep Wound Culture - Final NO GROWTH AFTER 3 DAYS Med Orders - Current: Current Medications Acetaminophen/Caffeine (Excedrin Tension Headache) 2 tab PO Q6H PRN PRN Reason: Headache Hydrocodone Bitart/Acetaminophen ([place] 325-5 Mg) 1 - 2 tab PO Q4H PRN PRN Reason: Pain Last Admin: 04/15/17 08:33 Dose: 2 tab Albuterol/Ipratropium (Duoneb 3.0-0.5 Mg/3 Ml) 3 ml INH QIDRT [facility] Last Admin: 04/15/17 07:22 Dose: 3 ml Albuterol/Ipratropium (Duoneb 3.0-0.5 Mg/3 Ml) 3 ml INH ASDIRECTED PRN PRN Reason: Shortness of Breath Amlodipine Besylate (Norvasc) 5 mg PO DAILY@2100 [facility] Last Admin: 04/14/17 20:33 Dose: 5 mg Doxazosin Mesylate (Cardura) 4 mg PO DAILY [facility] Last Admin: 04/15/17 08:34 Dose: 4 mg Enoxaparin Sodium (Lovenox) 40 mg SUBCUT DAILY [facility] Last Admin: 04/15/17 08:36 Dose: 40 mg Hydroxyzine HCl (Vistaril) 50 mg IM Q4H PRN PRN Reason: Other Labetalol HCl (Normodyne) 0 mg IVPUSH Q1H PRN; Protocol PRN Reason: Hypertension Last Admin: 04/09/17 20:46 Dose: 5 mg Lorazepam (Ativan) 0.5 - 1 mg PO Q4H PRN PRN Reason: Anxiety Last Admin: 04/15/17 08:34 Dose: 0.5 mg Metoclopramide HCl (Reglan) 10 mg PO Q6H PRN PRN Reason: Nausea/Vomiting Last Admin: 04/15/17 08:34 Dose: 10 mg Metoprolol Succinate (Toprol Xl) 50 mg PO DAILY [facility] Last Admin: 04/15/17 08:37 Dose: 50 mg Verify Scop Patch 0 each TOP DAILY [facility] Last Admin: 04/15/17 08:37 Dose: Not Given Phenol (Phenaseptic Liquid) 1 ml MUCMEM Q1H PRN PRN Reason: Sore Throat Last Admin: 04/08/17 01:08 Dose: 1 spray Scopolamine (Transderm-Scop) 1.5 mg TOP Q72H [facility] Last Admin: 04/13/17 08:15 Dose: 1.5 mg Senna (Senna) 17.2 mg PO BEDTIME [facility] Last Admin: 04/14/17 20:32 Dose: 17.2 mg Discontinued Medications Acetaminophen (Tylenol Extra Strength) 1,000 mg PO ONETIME ONE Stop: 04/04/17 10:31 Last Admin: 04/04/17 11:20 Dose: 1,000 mg Acetaminophen (Tylenol) 650 mg PO Q6H [facility] Last Admin: 04/07/17 05:32 Dose: 650 mg Albuterol/Ipratropium (Duoneb 3.0-0.5 Mg/3 Ml) 3 ml INH ONCALL ONE Stop: 04/04/17 12:31 Last Admin: 04/04/17 12:13 Dose: 3 ml Alvimopan (Entereg) 12 mg PO ONETIME ONE Stop: 04/04/17 10:31 Last Admin: 04/04/17 11:20 Dose: 12 mg Alvimopan (Entereg) 12 mg PO Q12H [facility] Stop: 04/11/17 10:01 Last Admin: 04/06/17 21:24 Dose: 12 mg Bacitracin (Bacitracin Oint 1 Gm) Confirm Administered Dose 1 dose .ROUTE .STK- MED ONE Stop: 04/12/17 11:22 Last Admin: 04/12/17 11:29 Dose: 1 dose Bacitracin (Bacitracin Oint 1 Gm) 1 dose TOP ONETIME ONE Stop: 04/12/17 11:46 Last Admin: 04/12/17 13:19 Dose: 1 dose Bisacodyl (Dulcolax) 10 mg PO BID [facility] Last Admin: 04/06/17 20:30 Dose: 10 mg Bisacodyl (Dulcolax) 10 mg RECTAL ONETIME ONE Stop: 04/07/17 18:01 Last Admin: 04/07/17 17:00 Dose: 10 mg Bupivacaine HCl (Marcaine 0.5%) Confirm Administered Dose 30 ml .ROUTE .STK-MED ONE Stop: 04/04/17 13:03 Bupivacaine HCl (Marcaine 0.5%) Confirm Administered Dose 50 ml .ROUTE .STK-MED ONE Stop: 04/06/17 05:26 Last Admin: 04/06/17 06:41 Dose: 10 ml Celecoxib (Celebrex) 200 mg PO ONETIME ONE Stop: 04/04/17 10:31 Last Admin: 04/04/17 11:19 Dose: 200 mg Dexamethasone (Dexamethasone) Confirm Administered Dose 4 mg .ROUTE .STK-MED ONE Stop: 04/04/17 11:29 Diphenhydramine HCl (Benadryl) 25 mg IVPUSH Q6H PRN PRN Reason: ITCHING Last Admin: 04/05/17 15:40 Dose: 25 mg Doxazosin Mesylate (Cardura) 2 mg PO DAILY [facility] Last Admin: 04/11/17 08:57 Dose: 2 mg Fentanyl (Sublimaze) Confirm Administered Dose 100 mcg .ROUTE .STK-MED ONE Stop: 04/03/17 07:59 Fentanyl (Sublimaze) Confirm Administered Dose 100 mcg .ROUTE .STK-MED ONE Stop: 04/04/17 12:54 Fentanyl (Sublimaze) Confirm Administered Dose 100 mcg .ROUTE .STK-MED ONE Stop: 04/04/17 13:44 Fentanyl (Sublimaze) Confirm Administered Dose 100 mcg .ROUTE .STK-MED ONE Stop: 04/06/17 06:08 Fentanyl Citrate (Fentanyl) Confirm Administered Dose 500 mcg .ROUTE .STK-MED ONE Stop: 04/04/17 11:29 Furosemide (Lasix) 20 mg IVPUSH ONETIME ONE Stop: 04/06/17 14:01 Last Admin: 04/06/17 13:52 Dose: 20 mg Furosemide (Lasix) 20 mg IVPUSH ONETIME ONE Stop: 04/08/17 21:05 Last Admin: 04/08/17 21:27 Dose: 20 mg Furosemide (Lasix) 20 mg IVPUSH ONETIME ONE Stop: 04/09/17 09:01 Last Admin: 04/09/17 09:42 Dose: 20 mg Glycopyrrolate (Robinul) Confirm Administered Dose 1 mg .ROUTE .STK-MED ONE Stop: 04/04/17 11:29 Hydromorphone HCl (Dilaudid [employer] 15 Mg In Ns 30 Ml) 0 mg IV ASDIRECTED PRN; Protocol PRN Reason: LOGGING [employer] PAIN CONTROL Last Admin: 04/10/17 03:26 Dose: 15 mg Hydromorphone HCl (Dilaudid [employer] 15 Mg In Ns 30 Ml) 15 mg IV ASDIRECTED [facility] PRN Reason: Protocol Last Admin: 04/12/17 00:19 Dose: 15 mg Hydromorphone HCl (Dilaudid [employer] 15 Mg In Ns 30 Ml) 0 mg IV ASDIRECTED PRN; Protocol PRN Reason: PAIN Last Admin: 04/13/17 06:45 Dose: 15 mg Hydroxyzine HCl (Vistaril) 50 mg IM ONETIME ONE Stop: 04/04/17 14:48 Last Admin: 04/04/17 14:55 Dose: 50 mg Hydroxyzine HCl (Vistaril) Confirm Administered Dose 100 mg .ROUTE .STK-MED ONE Stop: 04/04/17 14:49 Last Admin: 04/06/17 16:32 Dose: Not Given Sodium Chloride (Normal Saline) 1,000 mls @ 100 mls/hr IV ASDIRECTED [facility] Last Admin: 04/03/17 07:55 Dose: 100 mls/hr Dextrose/Lactated Ringer's (Dextrose 5%-Lactated Ringers) 1,000 mls @ 100 mls/ hr IV ASDIRECTED [facility] Last Infusion: 04/04/17 15:44 Dose: Infused Cefoxitin Sodium 2 gm/ Sodium (Chloride) 50 mls @ 100 mls/hr IV ONCALL ONE Stop: 04/04/17 12:59 Last Admin: 04/04/17 13:38 Dose: 100 mls/hr Fentanyl 2,500 mcg/ Sodium (Chloride) 250 mls @ 0 mls/hr EPIDUR TITRATE [facility]; Titrate PRN Reason: Protocol Last Admin: 04/06/17 04:57 Dose: 12 mls/hr, 12 mls/hr Sodium Chloride (Normal Saline) Confirm Administered Dose 20 mls @ as directed .ROUTE .STK-MED ONE Stop: 04/04/17 13:03 Acetaminophen (Ofirmev) Confirm Administered Dose 100 mls @ as directed IV .STK- MED ONE Stop: 04/04/17 13:10 Lactated Ringer's (Ringers, Lactated) Confirm Administered Dose 1,000 mls @ as directed .ROUTE .K-MED ONE Stop: 04/04/17 13:21 Naloxone HCl 0.4 mg/ Dextrose/ (Lactated Ringer's) 1,001 mls @ 150 mls/hr IV ASDIRECTED [facility] Dextrose/Lactated Ringer's (Dextrose 5%-Lactated Ringers) 1,000 mls @ 175 mls/ hr IV ASDIRECTED [facility] Last Admin: 04/04/17 16:46 Dose: 175 mls/hr Cefoxitin Sodium 2 gm/ Sodium (Chloride) 50 mls @ 100 mls/hr IV Q6H [facility] Last Admin: 04/06/17 06:00 Dose: 100 mls/hr Acetaminophen 1,000 mg/ Premix 100 mls @ 400 mls/hr IV Q6H [facility] Stop: 04/05/17 12:44 Last Admin: 04/05/17 11:58 Dose: 400 mls/hr Naloxone HCl 0.4 mg/ Dextrose/ (Lactated Ringer's) 1,001 mls @ 175 mls/hr IV ASDIRECTED [facility] Last Admin: 04/05/17 04:28 Dose: 175 mls/hr Dextrose/Lactated Ringer's (Dextrose 5%-Lactated Ringers) 1,000 mls @ 100 mls/ hr IV ASDIRECTED [facility] Last Admin: 04/07/17 05:34 Dose: 100 mls/hr Naloxone HCl 0.4 mg/ Dextrose/ (Lactated Ringer's) 1,001 mls @ 100 mls/hr IV ASDIRECTED [facility] Clindamycin Phosphate 900 mg/ (Sodium Chloride) 106 mls @ 200 mls/hr IV ONETIME ONE Stop: 04/06/17 07:46 Last Admin: 04/06/17 06:57 Dose: 200 mls/hr Piperacillin/Tazobactam/ (Dextrose 3.375 gm/ Premix) 50 mls @ 100 mls/hr IV Q6H [facility] Last Admin: 04/10/17 01:55 Dose: 100 mls/hr Clindamycin Phosphate 900 mg/ (Sodium Chloride) 106 mls @ 200 mls/hr IV Q8H [facility] Last Admin: 04/10/17 06:51 Dose: 200 mls/hr Erythromycin Lactobionate 125 (mg/ Sodium Chloride) 100 mls @ 100 mls/hr IV Q8H [facility] Stop: 04/11/17 12:00 Last Admin: 04/11/17 10:19 Dose: 100 mls/hr Dextrose/Lactated Ringer's (Dextrose 5%-Lactated Ringers) 1,000 mls @ 150 mls/ hr IV ASDIRECTED [facility] Last Admin: 04/08/17 01:12 Dose: 150 mls/hr Dextrose/Lactated Ringer's (Dextrose 5%-Lactated Ringers) 1,000 mls @ 80 mls/ hr IV ASDIRECTED [facility] Last Infusion: 04/12/17 04:59 Dose: 80 mls/hr Magnesium Sulfate 2 gm/ Premix 50 mls @ 25 mls/hr IV Q6H [facility] Stop: 04/12/17 05:59 Potassium Chloride 20 meq/Lidocaine HCl 2 ml/ Sodium Chloride 112 mls @ 56 mls/ hr IV Q2H [facility] Stop: 04/09/17 15:59 Last Admin: 04/09/17 15:13 Dose: 56 mls/hr Magnesium Sulfate 2 gm/ Sodium (Chloride) 54 mls @ 27 mls/hr IV Q6H [facility] Stop: 04/12/17 05:59 Last Admin: 04/12/17 03:29 Dose: 27 mls/hr Dextrose/Lactated Ringer's (Dextrose 5%-Lactated Ringers) 1,000 mls @ 125 mls/ hr IV ASDIRECTED [facility] Last Admin: 04/14/17 09:05 Dose: 125 mls/hr Sodium Chloride (Normal Saline) 78 mls @ 3.8 mls/sec IV ASDIRECTED [facility] Stop: 04/12/17 08:08 Last Admin: 04/12/17 08:22 Dose: 3.8 mls/sec Piperacillin/Tazobactam/ (Dextrose 3.375 gm/ Premix) 50 mls @ 100 mls/hr IV Q6H [facility] Last Admin: 04/14/17 15:05 Dose: 100 mls/hr Clindamycin Phosphate 900 mg/ (Sodium Chloride) 106 mls @ 200 mls/hr IV Q8H [facility] Last Admin: 04/14/17 09:50 Dose: 200 mls/hr Potassium Chloride 20 meq/Lidocaine HCl 2 ml/ Sodium Chloride 112 mls @ 56 mls/ hr IV Q2H [facility] Stop: 04/12/17 14:59 Last Admin: 04/12/17 15:35 Dose: 56 mls/hr Potassium Chloride 20 meq/Lidocaine HCl 2 ml/ Sodium Chloride 112 mls @ 56 mls/ hr IV Q2H [facility] Stop: 04/13/17 13:59 Last Admin: 04/13/17 13:53 Dose: 56 mls/hr Ibuprofen (Motrin) 600 mg PO QID [facility] Last Admin: 04/07/17 05:33 Dose: 600 mg Iopamidol (Isovue-300 (61%)) 124 ml IV . DIRECTED [facility] Stop: 04/12/17 08:08 Last Admin: 04/12/17 08:21 Dose: 150 ml Ketorolac Tromethamine (Toradol) Confirm Administered Dose 60 mg .ROUTE .STK- MED ONE Stop: 04/04/17 12:52 Ketorolac Tromethamine (Toradol) 60 mg IM ONETIME ONE Stop: 04/11/17 08:16 Last Admin: 04/11/17 08:01 Dose: 60 mg Ketorolac Tromethamine (Toradol) 60 mg IM ONETIME ONE Stop: 04/12/17 08:01 Last Admin: 04/12/17 07:59 Dose: 60 mg Lidocaine/Epinephrine (Xylocaine 1% With Epinephrine 1:100,000) Confirm Administered Dose 50 ml .ROUTE .STK-MED ONE Stop: 04/06/17 05:26 Last Admin: 04/06/17 06:41 Dose: 10 ml Lidocaine/Epinephrine (Xylocaine 1% With Epinephrine 1:100,000) 0 ml INJECT ONETIME ONE Stop: 04/12/17 11:41 Last Admin: 04/12/17 13:19 Dose: 5 ml Lorazepam (Ativan) 1 mg IVPUSH Q4H PRN PRN Reason: Anxiety Last Admin: 04/13/17 20:58 Dose: 1 mg Meperidine HCl (Demerol) 100 mg IM ONETIME ONE Stop: 04/04/17 14:47 Last Admin: 04/04/17 14:56 Dose: 100 mg Meperidine HCl (Demerol) Confirm Administered Dose 100 mg .ROUTE .STK-MED ONE Stop: 04/04/17 14:49 Last Admin: 04/06/17 16:32 Dose: Not Given Meperidine HCl (Demerol) 75 mg IM ASDIRECTED PRN PRN Reason: PAIN Stop: 04/05/17 06:00 Meropenem (Merrem) Confirm Administered Dose 500 mg .ROUTE .STK-MED ONE Stop: 04/04/17 13:35 Last Admin: 04/04/17 14:06 Dose: 500 mg Meropenem (Merrem) Confirm Administered Dose 500 mg .ROUTE .STK-MED ONE Stop: 04/06/17 05:26 Last Admin: 04/06/17 06:45 Dose: 500 mg Metoclopramide HCl (Reglan) 10 mg IVPUSH Q6H [facility] Last Admin: 04/14/17 15:05 Dose: 10 mg Metoprolol Succinate (Toprol Xl) 50 mg PO DAILY [facility] Last Admin: 04/12/17 09:01 Dose: 50 mg Metoprolol Tartrate (Lopressor) 5 mg IV Q6HR [facility] Last Admin: 04/13/17 10:55 Dose: Not Given Midazolam HCl (Versed 1 Mg/Ml) Confirm Administered Dose 2 mg .ROUTE .STK-MED ONE Stop: 04/03/17 07:59 Naloxone HCl (Narcan) 0.1 mg IVPUSH Q5M PRN PRN Reason: RESP RATE LESS THAN 6/MINUTE Last Admin: 04/04/17 15:44 Dose: 0.2 mg Naloxone HCl (Narcan) Confirm Administered Dose 0.4 mg .ROUTE .STK-MED ONE Stop: 04/04/17 11:40 Naloxone HCl (Narcan) Confirm Administered Dose 0.4 mg .ROUTE .STK-MED ONE Stop: 04/04/17 14:41 Naloxone HCl (Narcan) 0.4 mg IV ASDIRECTED PRN PRN Reason: ITCHING Last Admin: 04/05/17 04:30 Dose: 0.4 mg Naloxone HCl (Narcan) 0.1 mg IV ASDIRECTED PRN PRN Reason: decreased respiratory rate Naloxone HCl (Narcan) 0.1 mg IV ASDIRECTED PRN PRN Reason: decreased respiratory rate Neostigmine Methylsulfate (Neostigmine) Confirm Administered Dose 5 mg .ROUTE .STK-MED ONE Stop: 04/04/17 11:29 Ondansetron HCl (Zofran) Confirm Administered Dose 4 mg .ROUTE .STK-MED ONE Stop: 04/04/17 11:29 Ondansetron HCl (Zofran) 4 mg IV Q4H PRN PRN Reason: N/V Last Admin: 04/11/17 20:53 Dose: 4 mg Potassium Chloride (Klor-Con M20) 40 meq PO ONETIME ONE Stop: 04/10/17 12:31 Last Admin: 04/10/17 13:56 Dose: 40 meq Propofol (Diprivan 20 Ml) Confirm Administered Dose 200 mg .ROUTE .STK-MED ONE Stop: 04/03/17 07:58 Propofol (Diprivan 20 Ml) Confirm Administered Dose 200 mg .ROUTE .STK-MED ONE Stop: 04/03/17 08:40 Propofol (Diprivan 20 Ml) Confirm Administered Dose 200 mg .ROUTE .STK-MED ONE Stop: 04/04/17 11:29 Propofol (Diprivan 20 Ml) Confirm Administered Dose 200 mg .ROUTE .STK-MED ONE Stop: 04/06/17 06:07 Rocuronium [place] (Zemuron) Confirm Administered Dose 50 mg .ROUTE .STK-MED ONE Stop: 04/04/17 11:29 Scopolamine (Transderm-Scop) Confirm Administered Dose 1.5 mg .ROUTE .STK-MED ONE Stop: 04/04/17 14:12 Senna (Senna) 17.2 mg PO DAILY [facility] Last Admin: 04/11/17 08:58 Dose: 17.2 mg Succinylcholine Chloride (Quelicin) Confirm Administered Dose 200 mg .ROUTE .STK -MED ONE Stop: 04/04/17 11:29 Tamsulosin HCl (Flomax) 0.4 mg PO BEDTIME [facility] Last Admin: 04/06/17 20:30 Dose: 0.4 mg Tramadol HCl (Ultram) 50 mg PO QID [facility] Last Admin: 04/07/17 05:32 Dose: 50 mg - Exam General: Alert, Oriented Lungs: Clear to Auscultation, Normal Respiratory Effort Cardiovascular: Regular Rate, Regular Rhythm - Problem List Review Problem List Initiated/Reviewed/Updated: Yes - Plan Plan:: Assessment?Plan: #1. Hypertension. His pressure is good control this morning no need for me to continue to follow him.
[2017-04-15] MEDS: amLODIPine 5 MG Tab PO SCH (19:59)
[2017-04-15] MEDS: Sennosides 8.6 MG Tab PO SCH (19:59)
[2017-04-16] MEDS: Acetaminophen/HYDROcodone 325-5 MG Tab PO PRN ×2 (04:33→08:34)
[2017-04-16] MEDS: Albuterol/Ipratropium 3.0-0.5 MG/3 ML Neb Soln INH SCH (08:06)
[2017-04-16] MEDS: Doxazosin 4 MG Tab PO SCH (08:32)
[2017-04-16] MEDS: Enoxaparin 40 MG/0.4 ML Syringe SUBCUT SCH (08:32)
[2017-04-16] MEDS: Metoprolol Succinate 50 MG Tab.ER PO SCH (08:33)
[2017-04-16] MEDS: VERIFY SCOP PATCH TOP SCH (08:33)
[2017-04-16 08:35] VITALS: BP 142/92
--- NOTE | 2017-04-16 10:32 | CR ---
Abdomen 2V AP Flat Upright INDICATION: post op ileus FINDINGS: Comparison 04/15/2017. Stable to slight improvement of dilated small bowel loops in the mid abdomen. Mild increase in gas in the colon and rectum. Findings consistent with improving ileus.
--- NOTE | 2017-04-17 03:09 | DISCH ---
ADMISSION DIAGNOSIS: Sessile polyp. DISCHARGE DIAGNOSES: 1. Exploratory laparotomy with right colectomy and mobilization of omentum into pelvis to limit adhesion formation for sessile polyp involving the ascending colon, extensive congenital adhesions between small bowel, lower stomach, and pelvic inlet. Date of surgery on 04/04/2017. Surgeon, Gabriele Johnson M.D. 2. Delayed primary closure of open abdominal incision on 04/06/2017. 3. Postoperative ileus. 4. New diagnosis of hypertension. 5. Small seroma drained at bedside by Deejay Valdez M.D., on 04/12/2017. HISTORY: Rakesh is a 56-year-old male who had a colonoscopy by Mao Melendez M.D., with a sessile polyp. After preoperative evaluation and discussion of possible risks and possible complications, he wished to proceed with surgical procedure. HOSPITAL COURSE: Rakesh had his surgery on 04/04/2017 with a delayed primary closure on 04/06/2017. He had no operative complications. He did develop an early postop ileus and NG was placed, ileus partially resolved, and after he was started on a full liquid diet, he did have some nausea and vomiting, NG was replaced. He did develop some headaches 2 days, which he thought were due to caffeine withdrawal, and was given Toradol 60 mg IM. He continued to progress but slowly. By 04/14/2017, his NG was removed. He was started on a full liquid diet. He continued to have bowel movements and able to be changed to a regular diet on 04/15/2017, and on 04/16/2017, vital signs were stable, pain was well managed, nausea was managed with Reglan and Ativan, and he was able to be discharged to home. PHYSICAL EXAMINATION: GENERAL: Rakesh Portillo is a 56-year-old male. VITAL SIGNS: Height is 5 feet 10 inches, weight is 172 pounds. TPR is 97.3, 86, 18. Blood pressure 147/92. HEENT: Negative. NECK: Supple. HEART: Regular rate and rhythm. LUNGS: Clear. ABDOMEN: [place] will be removed in incision, incision is healing well, Steri-Strips applied. Soft, minimally tender, which would be normal after surgery. EXTREMITIES: Without peripheral edema. DISPOSITION: Discharged to home. CONDITION: Stable and improving. FOLLOWUP: 1. Appointment with Mao Melendez M.D., on 04/23/2017, call for appointment. 2. Appointment with Josephine Horta PA-C, for postop on 04/23/2017 at 11:00 a.m. HOME MEDICATIONS: 1. [place] 5/325 mg 1 to 2 every 4 hours p.r.n. pain, #50. 2. Norvasc 5 mg daily, #30. 3. Cardura 4 mg daily, #60. 4. Metoprolol-XL 50 mg oral daily, #90. 5. Ativan 0.5 to 1 mg q.4 hours p.r.n. nausea, #20. 6. Senna 17.2 mg oral daily. 7. Reglan 10 mg q.6 hours p.r.n. nausea, #30. DIET AFTER DISCHARGE: Regular diet as tolerated. Drink 8 to 10 glasses a day. ACTIVITY AFTER DISCHARGE: No lifting greater than 10 pounds for 6 weeks[address] Driving, do not drive on pain medication. Shower/bathing, may shower. DISCHARGE INSTRUCTIONS: Notify provider if fever, increased pain, swelling, redness, nausea or vomiting. Wound, keep site clean and dry. Wear abdominal binder for 6 weeks or p.r.n. Use incentive spirometer 10 times every hour while awake for 1 week.
--- NOTE | 2017-04-19 12:25 | PN ---
DATE OF SERVICE: 04/07/2017 SUBJECTIVE: Rakesh Portillo is a pleasant 56-year-old male. He did develop an ileus over the weekend. NG has put out 600 mL. GEOVANNY drains have put out 340 and 30 mL. He remains to be nauseated. He is having bowel movements. The abdominal flat and upright film did not show any changes. REVIEW OF SYSTEMS: Remainder of review of systems negative for any pertinent positives and negatives. OBJECTIVE: GENERAL: Rakesh Portillo is a 56-year-old male. VITAL SIGNS: TPR is 98.4, 90, 14, and blood pressure is 122/86. HEENT: Negative. NECK: Supple. HEART: Regular rate and rhythm. LUNGS: Clear. ABDOMEN: GEOVANNY drains intact. Dressing dry and intact. Abdominal binder is on. EXTREMITIES: Without peripheral edema. ASSESSMENT: 1. Exploratory laparotomy with right colectomy and mobilization of omentum into pelvis to limit recurrent adhesive formation for sessile polyp involving ascending colon and extensive congenital adhesions between the small bowel and lower abdomen and pelvic inlet. Date of surgery, 04/04/2017; surgeon, Gabriele Johnson MD. 2. Delayed primary closure for open incision on 04/06/2017; Gabriele Johnson MD. PLAN: 1. Continue abdominal flat and upright films. 2. Check labs in a.m. 3. Good pulmonary toilet encouraged. 4. We will evaluate p.r.n. or in a.m. Josephine Horta PA-C /[id number]
--- NOTE | 2017-04-21 08:39 | PN ---
DATE OF SERVICE: 04/15/2017 The patient has been afebrile with stable vital signs. The wound seroma which was aspirated on , did not show any evidence of growth at this point. Probably, it was a noninfected seroma. He moved his bowels. Finally, he will be able to go up to a regular diet and make sure that the GI tract is functioning prior to likely discharge home tomorrow. His abdominal x-ray showed some small bowel loops, but most of the air is in the large bowel. Gabriele Johnson MD /[id number]
== END 2017-04-16 08:43 | disposition home or self-care (01) | DRG 330 ==
LOC: JP.SDS 07:10 → JP.MS 07:10 → EDSTATUS 08:30 → JP.MS 10:38 → UNDOADMIN 10:38 → JP.2SS 04-04 18:20
PROVIDERS: ADMIT Surgery; ATTEND Internal Medicine
PROC: 0DBH8ZX Excision of Cecum, Via Natural or Artificial Opening Endoscopic, Diagnostic (ICD-10-PCS; principal; 2017-04-03)
PROC: 0DTF0ZZ Resection of Right Large Intestine, Open Approach (ICD-10-PCS; 2017-04-04)
PROC: 0DNW0ZZ Release Peritoneum, Open Approach (ICD-10-PCS; 2017-04-04)
PROC: 0WQF0ZZ Repair Abdominal Wall, Open Approach (ICD-10-PCS; 2017-04-06)
PROC: 0W9G3ZX Drainage of Peritoneal Cavity, Percutaneous Approach, Diagnostic (ICD-10-PCS; 2017-04-12)
DX: D12.2 Benign neoplasm of ascending colon (principal); Q43.3 Congenital malformations of intestinal fixation; K56.7 Ileus, unspecified; K62.5 Hemorrhage of anus and rectum; K91.872 Postprocedural seroma of a digestive system organ or structure following a digestive system procedure; D12.0 Benign neoplasm of cecum; K91.0 Vomiting following gastrointestinal surgery; I10 Essential (primary) hypertension; E87.6 Hypokalemia; Z87.891 Personal history of nicotine dependence; M54.9 Dorsalgia, unspecified; G89.29 Other chronic pain; H54.7 Unspecified visual loss; Z88.5 Allergy status to narcotic agent; Z80.0 Family history of malignant neoplasm of digestive organs
CPT/HCPCS: 10022; 36415; 71020; 71020-26; 74020; 74020-26; 74177; 80053; 82378; 83735; 84100; 85027; 86850; 86900; 86901; 86920; 86922; 87070; 87205; 88305; 88309; 93005; 94640; 94640-76; 94762; A9270-GY; J0131; J0330; J0694; J1100; J1170; J1200; J1364; J1650; J1885; J1940; J2060; J2175; J2185; J2250; J2310; J2405; J2543; J2704; J2710; J2765; J3010; J3410; J3475; J3480; J3490; J7030; J7040; J7042; J7050; J7120; J7620; S0077

== ENCOUNTER 2018-02-12 06:21 | Day surgery (SDC) | payer MEDICAID ==
[2018-02-12] MEDS ORDERED: Sodium Chloride 0.9% 1,000 ML IV SCH (06:45)
[2018-02-12] MEDS ORDERED: Midazolam 1 MG/ML 2 ML SDV ONE (07:21)
[2018-02-12] MEDS ORDERED: fentaNYL 100 MCG/2 ML SDV ONE (07:21)
[2018-02-12] MEDS ORDERED: Propofol 200 MG/20 ML SDV ONE ×2 (07:21→07:48)
[2018-02-12 09:02] VITALS: BP 148/94
--- NOTE | 2018-02-12 09:22 | PROC ---
DATE OF PROCEDURE: 02/12/2018 INDICATIONS: Rakesh is a 57-year-old male who has had a right hemicolectomy 1 year ago, comes in for a repeat colonoscopy. The risks and benefits were explained to the Rakesh and was taken to the OR. DESCRIPTION OF PROCEDURE: Anesthesia was given by the nurse staff physical therapy assistant. During the procedure, we used 2 mg of Versed, 100 mcg of fentanyl and 220 mg of propofol. The Olympus- 180L scope was used. With a gloved finger, the rectum was examined. The prostate was a grade 3/6, symmetrical, and soft. The tube was then placed into the rectum and advanced under direct vision. We did get to the anastomotic site. Upon retraction of the tube; noted no lesions, ulceration or abnormality then we got to right inside the rectum revealed erythema, but no obvious pathology or polyps are noted. The tube was removed. The patient tolerated the procedure well. PREOPERATIVE DIAGNOSIS: History of right hemicolectomy. POSTOPERATIVE DIAGNOSIS: Normal colon from cecum anastomotic area to the rectum except for erythema right inside the rectum. No malignant or pathological problem is seen of any significance. Mao Melendez MD /[id number]
== END 2018-02-12 09:00 | disposition home or self-care (01) ==
LOC: JP.SDS 06:21
PROVIDERS: ATTEND Internal Medicine
DX: K62.5 Hemorrhage of anus and rectum (principal); K62.89 Other specified diseases of anus and rectum; I10 Essential (primary) hypertension; J44.9 Chronic obstructive pulmonary disease, unspecified; Z87.891 Personal history of nicotine dependence; Z90.49 Acquired absence of other specified parts of digestive tract
CPT/HCPCS: 45378; J2250; J2704; J3010; J7030

== ENCOUNTER 2020-12-28 12:01 | Emergency (ER) | payer MEDICAID ==
[2020-12-28] MEDS ORDERED: Acetaminophen 500 MG Tab PO ONE (14:33)
--- NOTE | 2020-12-28 14:38 | EDM.PDOC ---
ED HPI GENERAL MEDICAL PROBLEM - General Chief Complaint: Fever Stated Complaint: FEVER,INFECTION FINGER Time Seen by Provider: 12/28/20 14:20 Source of Information: Reports: Patient History Limitations: Reports: No Limitations - History of Present Illness INITIAL COMMENTS - FREE TEXT/NARRATIVE: 60 yo male here for fever and an infection of the R index finger tip. He was seen in the clinic yesterday for this and was put on Bactrim DS and referred to Dr. Solorzano for today. Due to the fever he has that came on in the night he decided today to come to the ER instead. He has no other complaints. Onset: Gradual Duration: Day(s):, Getting Worse Location: Reports: Upper Extremity, Right (finger tip), Generalized Quality: Reports: Ache Severity: Mild Improves with: Reports: None Worsens with: Reports: Other (time) Context: Reports: Other (See HPI) Associated Symptoms: Reports: Fever/Chills, Other (R index finger tip infection) Treatments TREE WRAPPER: Reports: Other (see below) (Bactrim DS) Right Finger-Index Pain Score (Numeric/FACES): 2 - Related Data Allergies Allergy/AdvReac Type Severity Reaction Status Date / Time codeine Allergy Intermediate Itching Verified 12/28/20 13:59 Home Meds: Home Meds Albuterol [Ventolin HFA] 2 puff PO Q4H PRN 04/03/17 [History] Diltiazem HCl [Diltiazem 24Hr Cd] 240 mg PO DAILY 02/10/18 [History] Lisinopril/Hydrochlorothiazide [Lisinopril-Hctz 10-12.5 mg Tab] 1 each PO DAILY 12/28/20 [History] Sulfamethoxazole/Trimethoprim [Sulfamethoxazole-Tmp Ds Tablet] 1 each PO BID 12/28/20 [History] Past Medical History HEENT History: Reports: Allergic Rhinitis, Impaired Vision Cardiovascular History: Reports: High Cholesterol, Hypertension Respiratory History: Reports: Bronchitis, Recurrent, COPD Gastrointestinal History: Reports: Colon Polyp, Gastritis, GERD Genitourinary History: Reports: Renal Calculus Musculoskeletal History: Reports: Back Pain, Chronic, Fracture, Neck Pain, Chronic Neurological History: Reports: Concussion, Migraines Psychiatric History: Reports: Anxiety Endocrine/Metabolic History: Reports: None Hematologic History: Reports: None Immunologic History: Reports: None Oncologic (Cancer) History: Reports: Colon Dermatologic History: Reports: None - Infectious Disease History Infectious Disease History: Reports: Chicken Pox - Past Surgical History Head Surgeries/Procedures: Reports: None HEENT Surgical History: Reports: None Cardiovascular Surgical History: Reports: None Respiratory Surgical History: Reports: None GI Surgical History: Reports: Colonoscopy, EGD, Hernia, Inguinal, Other (See Below) Other GI Surgeries/Procedures: Colon resection Male Surgical History: Reports: None Endocrine Surgical History: Reports: None Neurological Surgical History: Reports: None Musculoskeletal Surgical History: Reports: Ganglion Cyst Oncologic Surgical History: Reports: None Dermatological Surgical History: Reports: None Social & Family History - Family History Family Medical History: No Pertinent Family History - Tobacco Use Tobacco Use Status *Q: Former Tobacco User Years of Tobacco use: 20 Packs/Tins Daily: 2 Used Tobacco, but Quit: Yes Month/Year Tobacco Last Used: december 2017 - Caffeine Use Caffeine Use: Reports: Soda - Recreational Drug Use Recreational Drug Use: Yes Recreational Drug Type: Reports: Marijuana/Hashish Recreational Drug Use Frequency: Weekly - Living Situation & Occupation Living situation: Reports: Occupation: Employed (works in a [employer] in a [employer] [place] [employer]) ED ROS GENERAL - Review of Systems Review Of Systems: See Below Constitutional: Reports: Fever, Chills, Malaise HEENT: Reports: No Symptoms Respiratory: Reports: No Symptoms Cardiovascular: Reports: No Symptoms GI/Abdominal: Reports: No Symptoms : Reports: No Symptoms Musculoskeletal: Reports: No Symptoms Skin: Reports: Other (infection R index finger tip) Neurological: Reports: No Symptoms ED EXAM, SEPSIS - Physical Exam Exam: See Below Exam Limited By: No Limitations General Appearance: Alert, WD/WN, No Apparent Distress Eye Exam: Bilateral Eye: Normal Inspection Ears: Normal External Exam, Normal Canal, Hearing Grossly Normal, Normal TMs Nose: Normal Inspection, No Blood Throat/Mouth: Normal Inspection, Normal Lips, Normal Oropharynx, Normal Voice, No Airway Compromise Head: Atraumatic, Normocephalic Neck: Normal Inspection Respiratory/Chest: No Respiratory Distress, Lungs Clear, Normal Breath Sounds, No Accessory Muscle Use Cardiovascular: Regular Rate, Rhythm, No Edema, Tachycardia GI/Abdominal Exam: Normal Bowel Sounds, Soft, Non-Tender, No Distention Back: Normal Inspection. No: CVA Tenderness (R), CVA Tenderness (L) Extremities: Normal Inspection, Normal Range of Motion, Non-Tender, No Pedal Edema Neurological: Alert, Oriented, CN II-XII Intact, Normal Cognition, No Motor/Sensory Deficits Psychiatric: Normal Affect, Normal Mood Skin: Warm, Dry, Intact, No Rash, Erythema (R finger tip with felon at the tip) ED SEPSIS PROCEDURES - I&D Site: R index finger tip Skin prep: Providone-Iodine (Betadine), Isopropyl Alcohol (Alcohol) Local anesthesia: Lidocaine: 2% Plain Local Anesthetic Volume: Other (7 ml) Area Incised With: 11 Blade Drainage: Purulent, Moderate Amount Probed to Break Up Loculations: Yes Packed With: 1/4 in. Iodoform I&D Complications: No Course - Vital Signs Last Recorded V/S: Last Vital Signs Temp 38.3 C H 12/28/20 15:08 Pulse 119 H 12/28/20 15:08 Resp 18 12/28/20 14:09 BP 127/95 H 12/28/20 15:08 Pulse Ox 98 12/28/20 15:08 - Orders/Labs/Meds Orders: Active Orders 24 hr Category Date Time Status CULTURE WOUND + SMEAR [RM] Stat Lab 12/28/20 16:10 Received Labs: Laboratory Tests 12/28/20 12/28/20 12/28/20 Range/Units 14:46 14:46 14:46 WBC 6.6 (4.5-11.0) K/uL RBC 5.09 (4.30-5.90) M/uL Hgb 14.8 D (12.0-15.0) g/dL Hct 44.9 (40.0-54.0) % MCV 88 (80-98) fL MCH 29 (27-31) pg MCHC 33 (32-36) % Plt Count 264 (150-400) K/uL Sodium 135 L (140-148) mmol/L Potassium 4.1 (3.6-5.2) mmol/L Chloride 98 L (100-108) mmol/L Carbon Dioxide 25 (21-32) mmol/L Anion Gap 16.1 H (5.0-14.0) mmol/L BUN 16 D (7-18) mg/dL Creatinine 2.0 H D (0.8-1.3) mg/dL Est Cr Clr Drug Dosing 41.57 mL/min Estimated GFR (MDRD) 34 L (>60) Glucose 100 (74-106) mg/dL Lactic Acid 0.9 (0.4-2.0) mmol/L Calcium 9.1 (8.5-10.1) mg/dL Meds: Medications Discontinued Medications Generic Name Dose Route Start Last Admin Trade Name Gena PRN Reason Stop Dose Admin Acetaminophen 1,000 mg 12/28/20 14:33 12/28/20 14:37 Acetaminophen 500 Mg Tab PO 12/28/20 14:34 1,000 mg ONETIME ONE Administration Bacitracin 1 dose 12/28/20 16:14 Bacitracin Oint 1 Gm U/D Packet TOP 12/28/20 16:15 ONETIME ONE Lidocaine HCl 7 ml 12/28/20 15:37 Lidocaine 2% 20 Ml Mdv NERVRT 12/28/20 15:38 ONETIME ONE Departure - Departure Time of Disposition: 16:25 Disposition: Home, Self-Care 01 Condition: Fair Clinical Impression: Encounter for incision and drainage procedure, Felon of finger of left hand - Discharge Information *PRESCRIPTION DRUG MONITORING PROGRAM REVIEWED*: Not Applicable *COPY OF PRESCRIPTION DRUG MONITORING REPORT IN PATIENT STACY: Not Applicable Instructions: Fingertip Infection Referrals: Javier Solorzano MD [Primary Care Provider] - Forms: ED Department Discharge Additional Instructions: Stop the Bactrim. Start Clindamycin 300 mg every 8 hrs. Take acetaminophen up to 1000 mg every 6 hrs for pain and fever control. Drink ample fluids. Leave today's dressing on for 24 hrs then remove. Try to leave the packing in place within your wound for at least 3 days. Recheck with your provider or clinic on Friday or Friday morning. Clean finger with soap and water and change the dressing twice a day starting tomorrow evening. Keep wound otherwise clean. Sepsis Event Note (ED) - Evaluation Sepsis Screening Result: Possible Sepsis Risk - Focused Exam Vital Signs: Vital Signs Temp Pulse Resp BP Pulse Ox 12/28/20 15:08 38.3 C H 119 H 127/95 H 98 12/28/20 14:09 38.2 C H 113 H 18 145/98 H 95 12/28/20 13:58 38.2 C H 113 H 18 145/98 H 95 - My Orders Last 24 Hours: My Active Orders 12/28/20 16:10 CULTURE WOUND + SMEAR [RM] Stat - Assessment/Plan Last 24 Hours: My Active Orders 12/28/20 16:10 CULTURE WOUND + SMEAR [RM] Stat
[2020-12-28 15:09] VITALS: BP 127/95; PULSE 119
[2020-12-28] MEDS ORDERED: Lidocaine 2% 20 ML MDV NERVRT ONE (15:37)
[2020-12-28] MEDS ORDERED: Bacitracin Oint 1 GM U/D Packet TOP ONE (16:14)
== END 2020-12-28 16:42 | disposition home or self-care (01) ==
LOC: JP.ED 12:01
DX: L03.011 Cellulitis of right finger (principal); I10 Essential (primary) hypertension; J44.9 Chronic obstructive pulmonary disease, unspecified; Z79.899 Other long term (current) drug therapy; Z88.5 Allergy status to narcotic agent; Z87.891 Personal history of nicotine dependence
CPT/HCPCS: 10060; 26010; 36415; 80048; 83605; 85027; 87070; 87186; 87205; 99283; A9270

== ENCOUNTER 2021-06-27 09:37 | Emergency (ER) | payer MEDICAID ==
[2021-06-27 11:20] VITALS: BP 144/100; PULSE 114
[2021-06-27] MEDS ORDERED: Ondansetron 4 MG Tab.DIS PO ONE (11:47)
--- NOTE | 2021-06-27 11:49 | EDM.PDOC ---
ED HPI GENERAL MEDICAL PROBLEM - General Chief Complaint: Gastrointestinal Problem Stated Complaint: FEVER, HEADACHE NAUSEA Time Seen by Provider: 06/27/21 11:27 Source of Information: Reports: Patient, RN Notes Reviewed History Limitations: Reports: No Limitations - History of Present Illness INITIAL COMMENTS - FREE TEXT/NARRATIVE: 60-year-old gentleman presents emergency department day complaint of fever nausea body aches he states he does have a known infection on his right thumb was at the clinic yesterday started on antibiotics of Bactrim he states he is only taken 1 dose of the medication and started feeling this way. No one else in the household is sick. No shortness of breath or chest pain. Generalized Pain Score (Numeric/FACES): 5 - Related Data Allergies Allergy/AdvReac Type Severity Reaction Status Date / Time codeine Allergy Intermediate Itching Verified 06/27/21 11:19 Home Meds: Home Meds Albuterol [Ventolin HFA] 2 puff PO Q4H PRN 04/03/17 [History] Lisinopril/Hydrochlorothiazide [Lisinopril-Hctz 10-12.5 mg Tab] 1 each PO DAILY 12/28/20 [History] Sulfamethoxazole/Trimethoprim [Sulfamethoxazole-Tmp Ds Tablet] 1 each PO BID 12/28/20 [History] Past Medical History HEENT History: Reports: Allergic Rhinitis, Impaired Vision Cardiovascular History: Reports: High Cholesterol, Hypertension Respiratory History: Reports: Bronchitis, Recurrent, COPD Gastrointestinal History: Reports: Colon Polyp, Gastritis, GERD Genitourinary History: Reports: Renal Calculus Musculoskeletal History: Reports: Back Pain, Chronic, Fracture, Neck Pain, Chronic Neurological History: Reports: Concussion, Migraines Psychiatric History: Reports: Anxiety Endocrine/Metabolic History: Reports: None Hematologic History: Reports: None Immunologic History: Reports: None Oncologic (Cancer) History: Reports: Colon Dermatologic History: Reports: None - Infectious Disease History Infectious Disease History: Reports: Chicken Pox - Past Surgical History Head Surgeries/Procedures: Reports: None HEENT Surgical History: Reports: None Cardiovascular Surgical History: Reports: None Respiratory Surgical History: Reports: None GI Surgical History: Reports: Colonoscopy, EGD, Hernia, Inguinal, Other (See Below) Other GI Surgeries/Procedures: Colon resection Male Surgical History: Reports: None Endocrine Surgical History: Reports: None Neurological Surgical History: Reports: None Musculoskeletal Surgical History: Reports: Ganglion Cyst Oncologic Surgical History: Reports: None Dermatological Surgical History: Reports: None Social & Family History - Family History Family Medical History: No Pertinent Family History - Tobacco Use Tobacco Use Status *Q: Never Tobacco User - Caffeine Use Caffeine Use: Reports: Soda - Recreational Drug Use Recreational Drug Use: Yes Recreational Drug Type: Reports: Marijuana/Hashish Recreational Drug Use Frequency: Daily - Living Situation & Occupation Living situation: Reports: 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[employer]) ED ROS GENERAL - Review of Systems Review Of Systems: See Below Constitutional: Reports: Fever, Chills, Weakness, Fatigue HEENT: Reports: No Symptoms Respiratory: Reports: No Symptoms Cardiovascular: Reports: No Symptoms GI/Abdominal: Reports: Nausea. Denies: Vomiting Musculoskeletal: Reports: Muscle Pain ED EXAM, GENERAL - Physical Exam Exam: See Below Exam Limited By: No Limitations General Appearance: Alert, Mild Distress Respiratory/Chest: No Respiratory Distress, Lungs Clear, Normal Breath Sounds, No Accessory Muscle Use, Chest Non-Tender Cardiovascular: No Murmur, Tachycardia GI/Abdominal: Soft, Non-Tender Course - Vital Signs Last Recorded V/S: Last Vital Signs Temp 98.2 F 06/27/21 11:21 Pulse 114 H 06/27/21 11:21 Resp 18 06/27/21 11:21 BP 144/100 H 06/27/21 11:21 Pulse Ox 98 06/27/21 11:21 - Orders/Labs/Meds Orders: Active Orders 24 hr Category Date Time Status Vital Signs [RC] Q1H Care 06/27/21 11:47 Active UA W/MICROSCOPIC [URIN] Urgent Lab 06/27/21 11:51 Ordered Blood Culture x2 Reflex Set [OM.PC] Urgent Oth 06/27/21 11:47 Ordered Labs: Laboratory Tests 06/27/21 06/27/21 06/27/21 Range/Units 11:24 11:50 11:50 WBC 10.0 (4.5-11.0) K/uL RBC 5.35 (4.30-5.90) M/uL Hgb 15.6 H (12.0-15.0) g/dL Hct 46.2 (40.0-54.0) % MCV 86 (80-98) fL MCH 29 (27-31) pg MCHC 34 (32-36) % Plt Count 259 (150-400) K/uL Neut % (Auto) 88.2 H (36-66) % Lymph % (Auto) 3.2 L (24-44) % Jackson % (Auto) 8.3 H (2-6) % Eos % (Auto) 0.1 L (2-4) % Baso % (Auto) 0.2 (0-1) % Sodium 131 L (140-148) mmol/L Potassium 4.9 (3.6-5.2) mmol/L Chloride 95 L (100-108) mmol/L Carbon Dioxide 28 (21-32) mmol/L Anion Gap 12.9 (5.0-14.0) mmol/L BUN 18 (7-18) mg/dL Creatinine 1.6 H (0.8-1.3) mg/dL Est Cr Clr Drug Dosing 51.96 mL/min Estimated GFR (MDRD) 45 L (>60) Glucose 114 H (74-106) mg/dL Lactic Acid (0.4-2.0) mmol/L Calcium 9.2 (8.5-10.1) mg/dL Total Bilirubin 1.3 H D (0.2-1.0) mg/dL AST 45 H (15-37) U/L ALT 66 D (12-78) U/L Alkaline Phosphatase 132 H (46-116) U/L C-Reactive Protein 10.10 H (0.0-0.3) mg/dL Total Protein 7.8 (6.4-8.2) g/dL Albumin 3.5 (3.4-5.0) g/dL Globulin 4.3 H (2.3-3.5) g/dL Albumin/Globulin Ratio 0.8 L (1.2-2.2) Procalcitonin ng/mL SARS CoV-2 RNA Rapid BLAIRE Negative 06/27/21 06/27/21 Range/Units 11:50 11:50 WBC (4.5-11.0) K/uL RBC (4.30-5.90) M/uL Hgb (12.0-15.0) g/dL Hct (40.0-54.0) % MCV (80-98) fL MCH (27-31) pg MCHC (32-36) % Plt Count (150-400) K/uL Neut % (Auto) (36-66) % Lymph % (Auto) (24-44) % Jackson % (Auto) (2-6) % Eos % (Auto) (2-4) % Baso % (Auto) (0-1) % Sodium (140-148) mmol/L Potassium (3.6-5.2) mmol/L Chloride (100-108) mmol/L Carbon Dioxide (21-32) mmol/L Anion Gap (5.0-14.0) mmol/L BUN (7-18) mg/dL Creatinine (0.8-1.3) mg/dL Est Cr Clr Drug Dosing mL/min Estimated GFR (MDRD) (>60) Glucose (74-106) mg/dL Lactic Acid 1.7 (0.4-2.0) mmol/L Calcium (8.5-10.1) mg/dL Total Bilirubin (0.2-1.0) mg/dL AST (15-37) U/L ALT (12-78) U/L Alkaline Phosphatase (46-116) U/L C-Reactive Protein (0.0-0.3) mg/dL Total Protein (6.4-8.2) g/dL Albumin (3.4-5.0) g/dL Globulin (2.3-3.5) g/dL Albumin/Globulin Ratio (1.2-2.2) Procalcitonin 0.79 ng/mL SARS CoV-2 RNA Rapid BLAIRE Meds: Medications Discontinued Medications Generic Name Dose Route Start Last Admin Trade Name Freq PRN Reason Stop Dose Admin Ceftriaxone Sodium 1 gm/ 0 gm 06/27/21 12:57 Lidocaine HCl 2.1 ml IM 06/27/21 12:58 ONETIME ONE Ondansetron HCl 4 mg 06/27/21 11:47 06/27/21 12:13 Ondansetron 4 Mg Tab.Dis PO 06/27/21 11:48 4 mg ONETIME ONE Administration Departure - Departure Time of Disposition: 13:03 Disposition: Home, Self-Care 01 Condition: Fair Clinical Impression: Cellulitis, finger Qualifiers: Laterality: left Qualified Code(s): L03.012 - Cellulitis of left finger - Discharge Information Instructions: Cellulitis, Adult Referrals: Javier Solorzano MD [Primary Care Provider] - Forms: ED Department Discharge Additional Instructions: Continue antibiotics, please followup with your primary care provider in 1-2 days if not better, please call return to the emergency department with worsening of symptoms. Sepsis Event Note (ED) - Evaluation Sepsis Screening Result: No Definite Risk - Focused Exam Vital Signs: Vital Signs Temp Pulse Resp BP Pulse Ox 06/27/21 11:21 98.2 F 114 H 18 144/100 H 98 06/27/21 11:17 98.2 F 114 H 18 144/100 H 98 - My Orders Last 24 Hours: My Active Orders 06/27/21 11:47 Vital Signs [RC] Q1H Blood Culture x2 Reflex Set [OM.PC] Urgent 06/27/21 11:51 UA W/MICROSCOPIC [URIN] Urgent - Assessment/Plan Last 24 Hours: My Active Orders 06/27/21 11:47 Vital Signs [RC] Q1H Blood Culture x2 Reflex Set [OM.PC] Urgent 06/27/21 11:51 UA W/MICROSCOPIC [URIN] Urgent Plan: assessment local skin infection with abscess Plan 1g Rocephin, complete the course of Bactrim close clinical follow up 1 to 2 days
[2021-06-27] MEDS ORDERED: cefTRIAXone 1 GM, Lidocaine 1% 2.1 ML IM ONE ×2 (12:57)
== END 2021-06-27 13:32 | disposition home or self-care (01) ==
LOC: JP.ED 09:37
DX: L03.012 Cellulitis of left finger (principal); I10 Essential (primary) hypertension; J44.9 Chronic obstructive pulmonary disease, unspecified; Z88.5 Allergy status to narcotic agent; Z79.899 Other long term (current) drug therapy; Z20.822 Contact with and (suspected) exposure to COVID-19
CPT/HCPCS: 36415; 80053; 83605; 84145; 85025; 86140; 87635; 96372; 99283; A9270; J0696; U0002

== ENCOUNTER 2021-07-26 06:24 | Day surgery (SDC) | payer MEDICAID ==
[2021-07-26] MEDS ORDERED: Sodium Chloride 0.9% 1,000 ML IV SCH (07:00)
[2021-07-26 07:24] LABS: CORONAVIRUS COVID-19 NAA NEGATIVE (NEGATIVE)
[2021-07-26] MEDS ORDERED: Propofol 200 MG/20 ML SDV ONE ×2 (07:28→08:36)
[2021-07-26] MEDS ORDERED: fentaNYL 100 MCG/2 ML SDV ONE (07:28)
[2021-07-26] MEDS ORDERED: Midazolam 1 MG/ML 2 ML SDV ONE (07:28)
[2021-07-26 09:41] VITALS: BP 107/69; PULSE 106
--- NOTE | 2021-07-26 09:46 | PROC ---
DATE OF PROCEDURE: 07/26/2021 SURGEON: Mao Melendez MD INDICATIONS: Rakesh is a 60-year-old male who comes in for a colonoscopy. He has a history of colon cancer with a right colectomy. The risks and benefits were explained to the patient, was taken to the OR. PROCEDURE IN DETAIL: Anesthesia was given by the nurse field installation technician. During the procedure, we used 2 mg of Versed, 2 mL of fentanyl, and 400 mg of propofol. The Olympus 180L scope was used, was placed into the rectum after examination of the rectum with a gloved finger, which revealed no abnormality. The tube was slowly advanced and we did get to the terminal colon at the site of an anastomosis. Upon retraction of the tube, noted no lesions or ulceration. No abnormality throughout the entire colon until we got to right at the rectum, noted a small polyp. This was biopsied twice. Air was withdrawn from the colon and the patient tolerated the procedure well. PREOPERATIVE DIAGNOSIS: History of colon cancer with right colectomy. POSTOPERATIVE DIAGNOSIS: A small polyp noted at the rectum. Biopsy report pending. Mao Melendez MD /[id number]
== END 2021-07-26 10:00 | disposition home or self-care (01) ==
LOC: JP.SDS 06:24
PROVIDERS: ATTEND Internal Medicine
DX: Z12.11 Encounter for screening for malignant neoplasm of colon (principal); K62.1 Rectal polyp; I10 Essential (primary) hypertension; Z85.038 Personal history of other malignant neoplasm of large intestine; Z90.49 Acquired absence of other specified parts of digestive tract; Z98.0 Intestinal bypass and anastomosis status; Z01.812 Encounter for preprocedural laboratory examination; Z20.822 Contact with and (suspected) exposure to COVID-19
CPT/HCPCS: 0241U; 45380; J2250; J2704; J3010; J7030

== ENCOUNTER 2022-01-26 07:54 | Emergency (ER) | payer MEDICAID ==
[2022-01-26 08:11] VITALS: BP 169/97; PULSE 118
[2022-01-26] MEDS ORDERED: Sodium Chloride 0.9% 10 ML Syringe FLUSH PRN (08:34)
[2022-01-26] MEDS ORDERED: Lactated Ringers 1,000 ML IV ONE (08:35)
[2022-01-26] MEDS ORDERED: Morphine 2 MG/ML SYRINGE IVPUSH ONE (08:36)
[2022-01-26 09:07] LABS: ESTIMATED GFR 63 mL/min (>60)
[2022-01-26] MEDS ORDERED: Levofloxacin 500 MG Tab PO ONE (09:40)
== END 2022-01-26 10:01 | disposition home or self-care (01) ==
LOC: JP.ED 07:54
DX: N49.2 Inflammatory disorders of scrotum (principal); I10 Essential (primary) hypertension; J44.9 Chronic obstructive pulmonary disease, unspecified; Z88.5 Allergy status to narcotic agent; Z88.2 Allergy status to sulfonamides
CPT/HCPCS: 36415; 80053; 83605; 85025; 85651; 86140; 93975; 96361; 96374; 99284; A9270; J2270; J7120

== ENCOUNTER 2022-08-17 20:23 | Emergency (ER) | payer MEDICAID ==
[2022-08-17 21:04] VITALS: BP 145/102; PULSE 119
[2022-08-17] MEDS ORDERED: Lidocaine 1% 5 ML VIAL INJECT ONE (21:34)
[2022-08-17] MEDS ORDERED: Bacitracin Oint 1 GM U/D Packet TOP ONE (21:34)
== END 2022-08-17 22:58 | disposition home or self-care (01) ==
LOC: JP.ED 20:23
DX: S61.210A Laceration without foreign body of right index finger without damage to nail, initial encounter (principal); S61.411A Laceration without foreign body of right hand, initial encounter; J44.9 Chronic obstructive pulmonary disease, unspecified; I10 Essential (primary) hypertension; Z88.5 Allergy status to narcotic agent; Z88.2 Allergy status to sulfonamides; Z87.891 Personal history of nicotine dependence; Z79.899 Other long term (current) drug therapy; W25.XXXA Contact with sharp glass, initial encounter
CPT/HCPCS: 12002; 99281; 99282